=== PATIENT | male | born 1970 | race Caucasian/White ===

== ENCOUNTER 2016-05-02 21:32 | Emergency (ER) | payer MEDICARE, MEDICAID ==
[~2016-05-02 21:32] MED LIST: ALBUAER3 INH; AZIT250T3 PO; DIAZ5TAB PO; DIVA500T3 PO; FENO160T PO; FLUO60TA PO; GABA800T PO; PRED20 PO; TAMS0.4C4 PO; TRAZ100T4 PO
[2016-05-02 21:35] VITALS: BP 143/87; PULSE 78; RESP 14; TEMP 98.3; O2SAT 98
[2016-05-02 23:04] VITALS: BP 113/78; PULSE 59; RESP 18; TEMP 97.8; O2SAT 99
--- NOTE | 2016-05-03 01:07 | RADRPT ---
EXAM DATE/TIME: 05/03/2016 00:52 [facility] COMPARISON: No previous studies available for comparison. INDICATIONS : Fall today, right side facial swelling. RADIATION DOSE: 43.04 CTDIvol (mGy) MEDICAL HISTORY : Hypertension. TIA SURGICAL HISTORY : None. ENCOUNTER: Initial ACUITY: 1 day PAIN SCORE: 8/10 LOCATION: Right facial TECHNIQUE: Volumetric scanning of the facial bones was performed. Using automated exposure control and adjustme nt of the mA and/or kV according to patient size, radiation dose was kept as low as reasonably achiev able to obtain optimal diagnostic quality images. FINDINGS: No fractures are seen. The examination demonstrates a high density area lateral to the left mandibula r body adjacent to the premolars and left canine with few foci of associated air lucency. This does a ppear to communicate with the left oral cavity. On axial image 52 of series 3 this area measures 2.9 x 1.2 cm in AP and transverse dimension. The tongue is deviated to the right. CONCLUSION: Left perimandibular high density ulcerated area suspected communicating with the oral cavity should b e evaluated with direct clinical inspection. No fractures are seen. Dereck Landon MD on May 03, 2016 at 1:02 Board Certified Radiologist. This report was verified electronically.
--- NOTE | 2016-05-03 01:35 | PD ---
HPI Chief Complaint: Fall Time Seen by Provider: 22:58 Travel History International Travel<30 days: No Contact w/Intl Traveler<30days: No Traveled to known affect area: No History of Present Illness HPI 45-year-old man who tripped and fell on his face walking back from a convenience store earlier today. He resides at some kind of skilled nursing or [facility]. He complains of right sided facial pain. No other complaints. History Past Medical History Narrative Medical Bipolar disorder hypertension asthma COPD Depression anxiety Hyperlipidemia Social History Alcohol Use: No Tobacco Use: No Allergies-Medications (Allergen,Severity, Reaction): Coded Allergies: Cantaloupe (Verified Allergy, Unknown, 05/02/16) Tomato (Verified Allergy, Unknown, 05/02/16) Watermelon (Verified Allergy, Unknown, 05/02/16) Reported Meds & Prescriptions Reported Meds & Active Scripts Active Proair Hfa 8.5 GM Inh (Albuterol Sulfate) 90 Mcg/Act Aer 2 Puff INH Q4-6H PRN 108 mcg/actuation Reported Tamsulosin (Tamsulosin HCl) 0.4 Mg Cap 0.4 Mg PO BID Gabapentin 800 Mg Tab 800 Mg PO BID Divalproex ER (Divalproex Sodium) 500 Mg Tab 500 Mg PO DAILY Diazepam 5 Mg Tab 5 Mg PO BID PRN Trazodone (Trazodone HCl) 100 Mg Tab 100 Mg PO HS Fluoxetine (Fluoxetine HCl) 60 Mg Tab 60 Mg PO DAILY Fenofibrate 160 Mg Tab 160 Mg PO DAILY Review of Systems ROS Limitations: Poor Historian Physical Exam Narrative GENERAL: Well-appearing 45-year-old man, no acute distress. SKIN: Warm and dry. HEAD: Atraumatic. Normocephalic. EYES: Pupils equal and round. No scleral icterus. No injection or drainage. ENT: No nasal bleeding or discharge. Mucous membranes pink and moist. No evidence of intraoral injury. There is no blood. There is no lacerations on the soft mucosa, in the vestibule, or affecting the time her palate. NECK: Moves neck freely. No tenderness. CARDIOVASCULAR: Regular rate and rhythm. No murmur appreciated. RESPIRATORY: No accessory muscle use. Clear to auscultation. Breath sounds equal bilaterally. GASTROINTESTINAL: Abdomen soft, non-tender, nondistended. Hepatic and splenic margins not palpable. MUSCULOSKELETAL: No obvious deformities. No edema. NEUROLOGICAL: Awake to decreased alertness, sleepy. No obvious cranial nerve deficits. Motor grossly within normal limits. Normal speech. Data Data Last Documented VS Vital Signs Date Time Temp Pulse Resp B/P Pulse Ox O2 Delivery O2 Flow Rate FiO2 05/02/16 23:05 99 Room Air 05/02/16 23:04 97.8 59 18 113/[address] Facial Bones W/O Iv Cont (05/03/16 ) [facility] Medical Decision Making Medical Screen Exam Complete: Yes Emergency Medical Condition: Yes Interpretation(s) CT face: Left perimandibular high-density ulcerated area suspected indicated oral cavity should be evaluated for. No fractures. Differential Diagnosis Facial fracture, contusion, other Narrative Course medical decision making 45 old male with trip and fall right face pain. Looks fine. Unusual reading on the CT face. I'll see any evidence of injury on the left side a corresponding to the abnormal findings. Recommend supportive treatment. Diagnosis Primary Impression: Right-sided face pain Additional Instructions: Use acetaminophen or ibuprofen as needed for pain. Continue current medications. Follow-up with your primary physician if not feeling completely well in the next 3-5 days. Return to the emergency department for any new or worsening symptoms. Disposition: 01 DISCHARGE HOME Condition: Stable Nik Montesinos MD May 03, 2016 01:34
[2016-05-03 06:00] VITALS: BP 121/74; PULSE 64; RESP 18; O2SAT 100
[2016-05-03 09:27] VITALS: BP 142/66; TEMP 98.3
== END 2016-05-03 09:27 | disposition home or self-care (01) ==
LOC: NEPC 21:32 → NEPA 05-03 09:27
DX: R51 Headache (principal); I10 Essential (primary) hypertension; E78.5 Hyperlipidemia, unspecified; J44.9 Chronic obstructive pulmonary disease, unspecified; W01.198A Fall on same level from slipping, tripping and stumbling with subsequent striking against other object, initial encounter; Y93.01 Activity, walking, marching and hiking; Y92.480 Sidewalk as the place of occurrence of the external cause
CPT/HCPCS: 70486

== ENCOUNTER 2016-05-26 20:29 | Emergency (ER) | payer MEDICARE, MEDICAID ==
[~2016-05-26] VITALS: Ht 167.6 cm; Wt 100.0 kg
[~2016-05-26 20:29] MED LIST changes: -AZIT250T3 PO; -PRED20 PO
[2016-05-26 20:31] VITALS: BP 130/77; PULSE 83; RESP 16; TEMP 98.5; O2SAT 96
[2016-05-26 20:55] VITALS: BP 123/70; PULSE 75; RESP 18; O2SAT 95
[2016-05-26] MEDS ORDERED: HYDR-3516 PO (21:05)
--- NOTE | 2016-05-26 21:12 | PD ---
HPI Chief Complaint: Medical Clearance Time Seen by Provider: 21:05 Travel History International Travel<30 days: No Contact w/Intl Traveler<30days: No Traveled to known affect area: No History of Present Illness HPI Patient is a 45-year-old male who presents emergency department for evaluation of depression. RN called [facility], they state the patient has been more depressed and not acting like himself lately. They state the patient requested to come to emergency department for evaluation. Patient is currently followed by [facility] on a weekly basis for depression. When asked, patient did not state that he was depressed, he stated that the immigration case manager at his [facility] facility wanted him to come in to be vaccinated. Patient has no physical complaints at this time. He denies any suicidal ideations. PFSH Past Medical History Asthma: Yes Blood Disorders: No Bipolar Disorder: Yes Anxiety: Yes Cancer: No High Cholesterol: Yes Chest Pain: Yes COPD: Yes Cerebrovascular Accident: Yes (TIA) Developmental Delay: Yes Endocrine: No Gastrointestinal Disorders: No Genitourinary: Yes (retention) Headaches: Yes Hypertension: Yes Immune Disorder: No Implanted Vascular Access Dvce: Yes Reproductive: No Migraines: Yes Seizures: No Tetanus Vaccination: Unknown Influenza Vaccination: No Past Surgical History Body Medical Devices: BACK RODS AND SCREWS Other Surgery: Yes Family History Family History: Negative Social History Alcohol Use: No Tobacco Use: No Substance Use: No Allergies-Medications (Allergen,Severity, Reaction): Coded Allergies: Cantaloupe (Verified Allergy, Unknown, 05/26/16) Tomato (Verified Allergy, Unknown, 05/26/16) Watermelon (Verified Allergy, Unknown, 05/26/16) Reported Meds & Prescriptions Reported Meds & Active Scripts Active Proair Hfa 8.5 GM Inh (Albuterol Sulfate) 90 Mcg/Act Aer 2 Puff INH Q4-6H PRN 108 mcg/actuation Reported Hydrocodone-Acetaminophen 5-325 mg Tab 1 Tab PO Q4H PRN Tamsulosin (Tamsulosin HCl) 0.4 Mg Cap 0.4 Mg PO BID Gabapentin 800 Mg Tab 800 Mg PO BID Divalproex ER (Divalproex Sodium) 500 Mg Tab 500 Mg PO DAILY Diazepam 5 Mg Tab 5 Mg PO BID PRN Trazodone (Trazodone HCl) 100 Mg Tab 100 Mg PO HS Fluoxetine (Fluoxetine HCl) 60 Mg Tab 60 Mg PO DAILY Fenofibrate 160 Mg Tab 160 Mg PO DAILY Review of Systems Except as stated in HPI: all other systems reviewed are Neg Physical Exam Exam Limitations: Poor Historian Narrative GENERAL: Overweight, well-developed, alert male. Resting comfortably in no acute distress. SKIN: Warm and dry. Maculopapular lesions to bilateral forearms, abdomen. Hyperpigmented, scaling. HEAD: Atraumatic. Normocephalic. EYES: Pupils equal and round. No scleral icterus. No injection or drainage. ENT: No nasal bleeding or discharge. Mucous membranes pink and moist. NECK: Trachea midline. No JVD. CARDIOVASCULAR: Regular rate and rhythm. No murmur appreciated. RESPIRATORY: No accessory muscle use. Clear to auscultation. Breath sounds equal bilaterally. GASTROINTESTINAL: Abdomen obese, soft, non-tender, nondistended. Hepatic and splenic margins not palpable. MUSCULOSKELETAL: No obvious deformities. No clubbing. No cyanosis. No edema. NEUROLOGICAL: Awake and alert. No obvious cranial nerve deficits. Motor grossly within normal limits. Normal speech. PSYCHIATRIC: Appropriate mood and affect; insight and judgment impaired. Data Data Last Documented VS Vital Signs Date Time Temp Pulse Resp B/P Pulse Ox O2 Delivery O2 Flow Rate FiO2 05/26/16 20:55 75 18 123/70 95 Room Air 05/26/16 20:31 98.5 Orders Complete Blood Count With Diff (05/26/16 21:02) Comprehensive Metabolic Panel (05/26/16 21:02) Thyroid Stimulating Hormone (05/26/16 21:02) Urinalysis - C+S If Indicated (05/26/16 21:02) Iv Access Insert/Monitor (05/26/16 21:02) Ecg Monitoring (05/26/16 21:02) Valproic Acid (Depakene) (05/26/16 21:02) Psych Screen (05/26/16 21:02) Sodium Chloride 0.9% Flush (Ns Flush) (05/26/16 21:15) Drug Screen, Random Urine (05/26/16 21:02) Alcohol (Ethanol) (05/26/16 21:02) Salicylates (Aspirin) (05/26/16 21:02) Tylenol (Acetaminophen) (05/26/16 21:02) Labs Laboratory Tests Test 05/26/16 21:10 White Blood Count 5.8 TH/MM3 Red Blood Count 3.94 MIL/MM3 Hemoglobin 12.1 GM/DL Hematocrit 35.5 % Mean Corpuscular Volume 90.2 FL Mean Corpuscular Hemoglobin 30.7 PG Mean Corpuscular Hemoglobin 34.0 % Concent Red Cell Distribution Width 13.1 % Platelet Count 193 TH/MM3 Mean Platelet Volume 9.1 FL Neutrophils (%) (Auto) 55.4 % Lymphocytes (%) (Auto) 25.9 % Monocytes (%) (Auto) 12.5 % Eosinophils (%) (Auto) 5.6 % Basophils (%) (Auto) 0.6 % Neutrophils # (Auto) 3.2 TH/MM3 Lymphocytes # (Auto) 1.5 TH/MM3 Monocytes # (Auto) 0.7 TH/MM3 Eosinophils # (Auto) 0.3 TH/MM3 Basophils # (Auto) 0.0 TH/MM3 CBC Comment DIFF FINAL Differential Comment Urine Color YELLOW Urine Turbidity CLEAR Urine pH 7.0 Urine Specific [place] 1.008 Urine Protein NEG mg/dL Urine Glucose (UA) NEG mg/dL Urine Ketones NEG mg/dL Urine Occult Blood NEG Urine Nitrite NEG Urine Bilirubin NEG Urine Urobilinogen LESS THAN 2.0 MG/DL Urine Leukocyte Esterase NEG Urine RBC LESS THAN 1 /hpf Urine WBC 1 /hpf Microscopic Urinalysis Comment CULT NOT INDICATED Sodium Level 141 MEQ/L Potassium Level 4.0 MEQ/L Chloride Level 105 MEQ/L Carbon Dioxide Level 30.7 MEQ/L Anion Gap 5 MEQ/L Blood Urea Nitrogen 11 MG/DL Creatinine 0.88 MG/DL Estimat Glomerular Filtration 94 ML/MIN Rate Random Glucose 83 MG/DL Calcium Level 8.6 MG/DL Total Bilirubin 0.3 MG/DL Aspartate Amino Transf 22 U/L (AST/SGOT) Alanine Aminotransferase 32 U/L (ALT/SGPT) Alkaline Phosphatase 28 U/L Total Protein 6.6 GM/DL Albumin 3.2 GM/DL Thyroid Stimulating Hormone 4.210 uIU/ML 3rd Gen Salicylates Level LESS THAN 1.7 MG/DL Urine Opiates Screen NEG Acetaminophen Level LESS THAN 2.0 MCG/ML Urine Barbiturates Screen NEG Valproic Acid (Depakene) Level 32 MCG/ML Urine Amphetamines Screen NEG Urine Benzodiazepines Screen POS Urine Cocaine Screen NEG Urine Cannabinoids Screen NEG Ethyl Alcohol Level LESS THAN 3 MG/DL MDM Medical Decision Making Medical Screen Exam Complete: Yes Emergency Medical Condition: Yes Interpretation(s) Vital Signs Date Time Temp Pulse Resp B/P Pulse Ox O2 Delivery O2 Flow Rate FiO2 05/26/16 20:55 75 18 123/70 95 Room Air 05/26/16 20:31 98.5 83 16 130/77 96 Differential Diagnosis Mood disorder versus substance abuse versus intoxication versus bipolar disorder versus other Narrative Course Patient is a 45-year-old male who presents emergency department for evaluation of depression per immigration case manager at his [facility] report. Patient stated he was here to have his vaccines updated. Patient has no physical complaints at this time. Labs ordered and pending, psych screening pending medical clearance. CBC, chemistry reviewed and are unremarkable. TSH is 4.21 Tox screen was positive for benzodiazepines, valproic acid 32, acetaminophen negative, salicylate level is less than 1.7, alcohol level is negative. Urinalysis is not indicative of a urinary tract infection. Patient is medically clear for psychiatric evaluation at this time. Patient is resting in bed, he is pleasant, calm, cooperative. Diagnosis Primary Impression: Medical clearance for psychiatric admission Condition: Stable Monika Mendoza May 26, 2016 21:12
[2016-05-26] MEDS ORDERED: SODIUM CHLORIDE 0.9% FLUSH 5 ML FLUSH IVF PRN (21:15)
[2016-05-26 21:37] LABS: AUTOMATED NEUTROPHIL # 3.2 TH/MM3 (1.8-7.7); BASOPHIL % 0.6 % (0.0-2.0); EOSINOPHIL # 0.3 TH/MM3 (0-0.4); EOSINOPHIL % 5.6 % (0.0-4.0); HEMATOCRIT 35.5 % (39.0-51.0); HEMO FLAGS DIFF FINAL; LYMPH % 25.9 % (9.0-44.0); LYMPHOCYTE # 1.5 TH/MM3 (1.0-4.8); MEAN CELL VOLUME 90.2 FL (80.0-100.0); MEAN CORPUSCULAR HEMOGLOBIN 30.7 PG (27.0-34.0); MONO % 12.5 % (0.0-8.0); NEUT % 55.4 % (16.0-70.0); PLATELET COUNT 193 TH/MM3 (150-450); RED BLOOD COUNT 3.94 MIL/MM3 (4.50-5.90); RED CELL DISTRIBUTION WIDTH 13.1 % (11.6-17.2); WHITE BLOOD COUNT 5.8 TH/MM3 (4.0-11.0)
[2016-05-26 22:08] LABS: ACETAMINOPHEN LESS THAN 2.0 MCG/ML (10.0-30.0); ALT (GPT) 32 U/L (12-78); ANION GAP 5 MEQ/L (5-15); AST (GOT) 22 U/L (15-37); BICARBONATE 30.7 MEQ/L (21.0-32.0); BLOOD UREA NITROGEN 11 MG/DL (7-18); CHLORIDE 105 MEQ/L (98-107); GLOMERULAR FILTRATION RATE 94 ML/MIN (>89); SODIUM (NA) 141 MEQ/L (136-145)
[2016-05-26 22:16] LABS: ALKALINE PHOSPHATASE 28 U/L (45-117); TOTAL BILIRUBIN ADULT 0.3 MG/DL (0.2-1.0)
[2016-05-26 22:36] LABS: BLOOD, URINE NEG (NEG); COMMENT (UR) CULT NOT INDICATED; CULTURE IF INDICATED CULT NOT INDICATED; GLUCOSE,URINE NEG (NEG); KETONE, URINE NEG (NEG); NITRITE,URINE NEG (NEG); URINE COLOR YELLOW (YELLW/STRAW)
[2016-05-26 22:42] LABS: AMPHETAMINE, URINE NEG (NEG); BARBITURATES, URINE NEG (NEG); COCAINE, URINE NEG (NEG)
[2016-05-27 06:26] VITALS: BP 125/68; PULSE 84; RESP 16; O2SAT 98
== END 2016-05-27 09:11 | disposition home or self-care (01) ==
LOC: NEPE 20:29 → NEPA 05-27 09:11
DX: F39 Unspecified mood [affective] disorder (principal); J45.909 Unspecified asthma, uncomplicated; E78.00 Pure hypercholesterolemia, unspecified; J44.9 Chronic obstructive pulmonary disease, unspecified; Z86.73 Personal history of transient ischemic attack (TIA), and cerebral infarction without residual deficits; I10 Essential (primary) hypertension
CPT/HCPCS: 80053; 80164; 80307; 80320; 80329; 81001; 84443; 85025; 99284; G0480

== ENCOUNTER 2016-06-20 20:06 | Emergency (ER) | payer MEDICARE, MEDICAID ==
[~2016-06-20] VITALS: Ht 167.6 cm; Wt 97.0 kg
[~2016-06-20 20:06] MED LIST changes: +HYDR-3516 PO
[2016-06-20 20:09] VITALS: BP 118/74; PULSE 78; RESP 14; TEMP 97.8; O2SAT 97
--- NOTE | 2016-06-20 20:19 | PD ---
HPI Chief Complaint: GI Complaint Time Seen by Provider: 20:19 Travel History International Travel<30 days: No Contact w/Intl Traveler<30days: No Traveled to known affect area: No History of Present Illness HPI 45-year-old male came to the emergency room with history of constipation for 3 days and right lower quadrant pain. Patient seems to have some degree of mental retardation. However he did mention that he has lost weight and appetite. Sounds like he lost about 30 pounds but I'm unsure this is over what period of time. His vital signs were stable in the ER. [facility] Past Medical History Narrative Medical List of his past medical, surgical, social and family history as reviewed from the nursing note. Asthma: Yes Blood Disorders: No Bipolar Disorder: Yes Anxiety: Yes Cancer: No Cardiovascular Problems: Yes (HTN) High Cholesterol: Yes Chest Pain: Yes COPD: Yes Cerebrovascular Accident: Yes (TIA) Developmental Delay: Yes Endocrine: No Gastrointestinal Disorders: No Genitourinary: Yes (retention) Headaches: Yes Hypertension: Yes Immune Disorder: No Implanted Vascular Access Dvce: Yes Reproductive: No Respiratory: Yes (ASTHMA) Migraines: Yes Seizures: No Past Surgical History Body Medical Devices: BACK RODS AND SCREWS Other Surgery: Yes Social History Alcohol Use: No Tobacco Use: No Substance Use: No (DENIED) Allergies-Medications (Allergen,Severity, Reaction): Coded Allergies: Cantaloupe (Verified Allergy, Unknown, 06/20/16) Tomato (Verified Allergy, Unknown, 06/20/16) Watermelon (Verified Allergy, Unknown, 06/20/16) Comments List of his allergies reviewed from the nursing note. Reported Meds & Prescriptions Reported Meds & Active Scripts Active Miralax Powder (Polyethylene Glycol 3350 Powder) 17 Gm Powd 17 Gm PO DAILY Mix and dissolve one measuring cap-ful (17 grams) in water or juice. Proair Hfa 8.5 GM Inh (Albuterol Sulfate) 90 Mcg/Act Aer 2 Puff INH Q4-6H PRN 108 mcg/actuation Reported Hydrocodone-Acetaminophen 5-325 mg Tab 1 Tab PO Q4H PRN Tamsulosin (Tamsulosin HCl) 0.4 Mg Cap 0.4 Mg PO BID Gabapentin 800 Mg Tab 800 Mg PO BID Divalproex ER (Divalproex Sodium) 500 Mg Tab 500 Mg PO DAILY Diazepam 5 Mg Tab 5 Mg PO BID PRN Trazodone (Trazodone HCl) 100 Mg Tab 100 Mg PO HS Fluoxetine (Fluoxetine HCl) 60 Mg Tab 60 Mg PO DAILY Fenofibrate 160 Mg Tab 160 Mg PO DAILY Narrative Medication List of his home medications reviewed from the nursing note. Review of Systems Except as stated in HPI: all other systems reviewed are Neg Physical Exam Narrative GENERAL: Awake, alert, anxious, moderate distress SKIN: Warm and dry. Acne/folliculitis on the anterior abdominal wall HEAD: Atraumatic. Normocephalic. EYES: Pupils equal and round. No scleral icterus. No injection or drainage. ENT: No nasal bleeding or discharge. Mucous membranes pink and moist. NECK: Trachea midline. No JVD. CARDIOVASCULAR: Regular rate and rhythm. No murmur appreciated. RESPIRATORY: No accessory muscle use. Clear to auscultation. Breath sounds equal bilaterally. GASTROINTESTINAL: Abdomen soft, mild right lower quadrant tenderness over the palpation, nondistended. Hepatic and splenic margins not palpable. No hard stool in the rectal vault MUSCULOSKELETAL: No obvious deformities. No clubbing. No cyanosis. No edema. NEUROLOGICAL: Awake and alert. No obvious cranial nerve deficits. Motor grossly within normal limits. Normal speech. PSYCHIATRIC: Appropriate mood and affect; insight and judgment normal. Data Data Last Documented VS Vital Signs Date Time Temp Pulse Resp B/P Pulse Ox O2 Delivery O2 Flow Rate FiO2 06/20/16 20:09 97.8 78 14 118/74 97 Room Air Orders Complete Blood Count With Diff (06/20/16 20:23) Comprehensive Metabolic Panel (06/20/16 20:23) Lipase (06/20/16 20:23) Urinalysis - C+S If Indicated (06/20/16 20:23) Ct Abd/Pel W/O Iv Contrast (06/20/16 20:23) Iv Access Insert/Monitor (06/20/16 20:23) Ecg Monitoring (06/20/16 20:23) Oximetry (06/20/16 20:23) Sodium Chlor 0.9% 1000 Ml Inj (Ns 1000 M (06/20/16 20:23) Sodium Chloride 0.9% Flush (Ns Flush) (06/20/16 20:30) Valproic Acid (Depakene) (06/20/16 20:23) Labs Laboratory Tests Test 06/20/16 06/20/16 20:35 22:20 White Blood Count 5.3 TH/MM3 Red Blood Count 4.12 MIL/MM3 Hemoglobin 12.3 GM/DL Hematocrit 37.7 % Mean Corpuscular Volume 91.6 FL Mean Corpuscular Hemoglobin 29.8 PG Mean Corpuscular Hemoglobin 32.5 % Concent Red Cell Distribution Width 13.1 % Platelet Count 164 TH/MM3 Mean Platelet Volume 10.1 FL Neutrophils (%) (Auto) 55.9 % Lymphocytes (%) (Auto) 30.8 % Monocytes (%) (Auto) 11.1 % Eosinophils (%) (Auto) 1.8 % Basophils (%) (Auto) 0.4 % Neutrophils # (Auto) 2.9 TH/MM3 Lymphocytes # (Auto) 1.6 TH/MM3 Monocytes # (Auto) 0.6 TH/MM3 Eosinophils # (Auto) 0.1 TH/MM3 Basophils # (Auto) 0.0 TH/MM3 CBC Comment AUTO DIFF Differential Total Cells 100 Counted Neutrophils % (Manual) 62 % Band Neutrophils % 2 % Lymphocytes % 30 % Monocytes % 5 % Eosinophils % 1 % Neutrophils # (Manual) 3.4 TH/MM3 Differential Comment FINAL DIFF MANUAL Platelet Estimate NORMAL Platelet Morphology Comment NORMAL Sodium Level 140 MEQ/L Potassium Level 4.0 MEQ/L Chloride Level 104 MEQ/L Carbon Dioxide Level 29.7 MEQ/L Anion Gap 6 MEQ/L Blood Urea Nitrogen 14 MG/DL Creatinine 0.96 MG/DL Estimat Glomerular Filtration 85 ML/MIN Rate Random Glucose 95 MG/DL Calcium Level 8.5 MG/DL Total Bilirubin 0.3 MG/DL Aspartate Amino Transf 20 U/L (AST/SGOT) Alanine Aminotransferase 29 U/L (ALT/SGPT) Alkaline Phosphatase 33 U/L Total Protein 6.8 GM/DL Albumin 3.5 GM/DL Lipase 122 U/L Valproic Acid (Depakene) Level 78 MCG/ML Urine Color LIGHT-YELLOW Urine Turbidity CLEAR Urine pH 7.5 Urine Specific [place] 1.008 Urine Protein NEG mg/dL Urine Glucose (UA) NEG mg/dL Urine Ketones NEG mg/dL Urine Occult Blood NEG Urine Nitrite NEG Urine Bilirubin NEG Urine Urobilinogen LESS THAN 2.0 MG/DL Urine Leukocyte Esterase NEG Urine RBC LESS THAN 1 /hpf Urine WBC 2 /hpf Urine Mucus FEW /lpf Microscopic Urinalysis Comment CULT NOT INDICATED MDM Medical Decision Making Medical Screen Exam Complete: Yes Emergency Medical Condition: Yes Medical Record Reviewed: Yes Differential Diagnosis Obstipation, acute appendicitis, acute diverticulitis, abdominal pain NOS Narrative Course 9:26 PM CAT scan was within normal limits. Chemistry and liver function is within normal limits as well. Awaiting for the CBC. If that is normal patient will be discharged home with a prescription for laxative. Also waiting for UA. Procedures EKG Prior to Arrival: No Diagnosis Primary Impression: Constipation Qualified Code: K59.00 - Constipation, unspecified constipation type Additional Impression: Abdominal pain, unspecified site Referrals: Primary Care Physician 2 days Additional Instructions: Please follow-up with your primary care in couple days. Take medication as per the prescription direction. Med/Other Pt SpecificInfo: Prescription(s) given Scripts Polyethylene Glycol 3350 Powder (Miralax Powder)17 Gm Powd17 Gm PO DAILY #1 BOTTLE Ref 0 Mix and dissolve one measuring cap-ful (17 grams) in water or juice. Prov:Bandar Easley MD 06/20/16 Disposition: 01 DISCHARGE HOME Condition: Stable Bandar Easley MD Jun 20, 2016 20:19
[2016-06-20] MEDS ORDERED: SODIUM CHLOR 0.9% 1000 ML INJ 1,000 ML IV SCH (20:23)
[2016-06-20] MEDS ORDERED: SODIUM CHLORIDE 0.9% FLUSH 5 ML FLUSH IVF PRN (20:30)
--- NOTE | 2016-06-20 20:54 | RADRPT ---
EXAM DATE/TIME: 06/20/2016 20:36 [facility] COMPARISON: No previous studies available for comparison. INDICATIONS : Abdominal pain with constipation. ORAL CONTRAST: No oral contrast ingested. RADIATION DOSE: 14.00 CTDIvol (mGy) MEDICAL HISTORY : Hypertension. SURGICAL HISTORY : Fusion, lumbar. ENCOUNTER: Initial ACUITY: 2 days PAIN SCALE: 4/10 LOCATION: abdomen TECHNIQUE: Volumetric scanning of the abdomen and pelvis was performed. Using automated exposure control and ad justment of the mA and/or kV according to patient size, radiation dose was kept as low as reasonably achievable to obtain optimal diagnostic quality images. FINDINGS: LOWER LUNGS: The visualized lower lungs are clear. LIVER: Homogeneous density without lesion. There is no dilation of the biliary tree. Contracted gallbladder . No stones demonstrated. SPLEEN: Normal size without lesion. PANCREAS: Within normal limits. KIDNEYS: Normal in size and shape. There is no mass, stone, or hydronephrosis. ADRENAL GLANDS: Within normal limits. VASCULAR: There is no aortic aneurysm. BOWEL/MESENTERY: The stomach, small bowel, and colon demonstrate no acute abnormality. There is no free intraperitone al air or fluid. The appendix is well-visualized, normal. ABDOMINAL WALL: Within normal limits. RETROPERITONEUM: There is no lymphadenopathy. BLADDER: No wall thickening or mass. REPRODUCTIVE: Within normal limits. INGUINAL: There is no lymphadenopathy or hernia. MUSCULOSKELETAL: No acute bony abnormality demonstrated. Previous fusion procedure with posterior instrumentation at L 4/L5 and L5/S1. CONCLUSION: Negative noncontrast CT of the abdomen and pelvis. Valdez Fonseca MD on June 20, 2016 at 20:50 Board Certified Radiologist. This report was verified electronically.
[2016-06-20 21:12] LABS: ANION GAP 6 MEQ/L (5-15); AST (GOT) 20 U/L (15-37); BICARBONATE 29.7 MEQ/L (21.0-32.0); BLOOD UREA NITROGEN 14 MG/DL (7-18); CHLORIDE 104 MEQ/L (98-107); GLOMERULAR FILTRATION RATE 85 ML/MIN (>89); SODIUM (NA) 140 MEQ/L (136-145)
[2016-06-20 21:16] LABS: ALKALINE PHOSPHATASE 33 U/L (45-117); ALT (GPT) 29 U/L (12-78); TOTAL BILIRUBIN ADULT 0.3 MG/DL (0.2-1.0)
[2016-06-20 22:04] LABS: AUTOMATED NEUTROPHIL # 2.9 TH/MM3 (1.8-7.7); BASOPHIL % 0.4 % (0.0-2.0); EOSINOPHIL # 0.1 TH/MM3 (0-0.4); EOSINOPHIL % 1.8 % (0.0-4.0); HEMATOCRIT 37.7 % (39.0-51.0); LYMPH % 30.8 % (9.0-44.0); LYMPHOCYTE # 1.6 TH/MM3 (1.0-4.8); MEAN CELL VOLUME 91.6 FL (80.0-100.0); MEAN CORPUSCULAR HEMOGLOBIN 29.8 PG (27.0-34.0); MEAN CORPUSCULAR HGB CONC 32.5 % (32.0-36.0); MONO % 11.1 % (0.0-8.0); NEUT % 55.9 % (16.0-70.0); PLATELET COUNT 164 TH/MM3 (150-450); RED BLOOD COUNT 4.12 MIL/MM3 (4.50-5.90); RED CELL DISTRIBUTION WIDTH 13.1 % (11.6-17.2); WHITE BLOOD COUNT 5.3 TH/MM3 (4.0-11.0)
[2016-06-20 22:06] LABS: HEMO FLAGS AUTO DIFF
[2016-06-20 22:12] LABS: BANDS 2 % (0-6); EOSINOPHILS 1 % (0-4); NEUTROPHIL # MANUAL DIFF 3.4 TH/MM3 (1.8-7.7); POLYS (SEG NEUTROPHILS) 62 % (16-70); WBC DIFF SAMPLE 100
[2016-06-20 22:13] LABS: PLATELET ESTIMATE SMEAR NORMAL (NORMAL); PLATELET MORPHOLOGY NORMAL (NORMAL); SCAN/DIFF FINAL DIFF MANUAL
[2016-06-20 22:35] LABS: BLOOD, URINE NEG (NEG); COMMENT (UR) CULT NOT INDICATED; CULTURE IF INDICATED CULT NOT INDICATED; GLUCOSE,URINE NEG (NEG); KETONE, URINE NEG (NEG); MUCUS URINE FEW /lpf (OCC); NITRITE,URINE NEG (NEG); PH, URINE 7.5 (5.0-8.5); URINE COLOR LIGHT-YELLOW (YELLW/STRAW)
[2016-06-20] MEDS ORDERED: MIRA33504 PO (22:41)
== END 2016-06-20 23:50 | disposition home or self-care (01) ==
LOC: NEPE 20:06
DX: K59.00 Constipation, unspecified (principal); R10.31 Right lower quadrant pain; I10 Essential (primary) hypertension; E78.00 Pure hypercholesterolemia, unspecified; J44.9 Chronic obstructive pulmonary disease, unspecified; Z86.73 Personal history of transient ischemic attack (TIA), and cerebral infarction without residual deficits
CPT/HCPCS: 74176; 80053; 80164; 81001; 83690; 85007; 85027; 96360; 99284; J7030

== ENCOUNTER 2016-06-27 19:35 | Inpatient (IN) | payer MEDICARE, MEDICAID, OTHER ==
[~2016-06-27] VITALS: Ht 167.6 cm; Wt 93.7 kg
[~2016-06-27 19:35] MED LIST changes: +MIRA33504 PO
[2016-06-27 19:38] VITALS: BP 131/67; PULSE 89; RESP 16; TEMP 98.1; O2SAT 96
--- NOTE | 2016-06-27 23:02 | PD ---
HPI Chief Complaint: Psychiatric Symptoms Time Seen by Provider: 22:59 Travel History International Travel<30 days: No Contact w/Intl Traveler<30days: No Traveled to known affect area: No History of Present Illness HPI 45-year-old white male presents to emergency department on a voluntary basis for psychological evaluation. He states that he is having issues with his roommate. He states that he is tired of his roommate questioning him and telling him what to do. He states that he feels that he wants to choke his roommate to . He also then states that he wants to cut his wrists and cut his neck. The patient states that he's been compliant with his medications. States any feels like committing suicide after killing his roommate. Patient denies any toxic ingestions. He denies any drugs, alcohol or tobacco. Patient lives in a [facility]. [facility] Past Medical History Asthma: Yes Blood Disorders: No Bipolar Disorder: Yes Anxiety: Yes Cancer: No Cardiovascular Problems: Yes (HTN) High Cholesterol: Yes Chest Pain: Yes COPD: Yes Cerebrovascular Accident: Yes (TIA) Developmental Delay: Yes Endocrine: No Gastrointestinal Disorders: No Genitourinary: Yes (retention) Headaches: Yes Hypertension: Yes Immune Disorder: No Implanted Vascular Access Dvce: Yes Reproductive: No Respiratory: Yes (ASTHMA) Migraines: Yes Seizures: No Tetanus Vaccination: < 5 Years Past Surgical History Body Medical Devices: BACK RODS AND SCREWS Other Surgery: Yes Social History Alcohol Use: No Tobacco Use: No Substance Use: No Allergies-Medications (Allergen,Severity, Reaction): Coded Allergies: Cantaloupe (Verified Allergy, Unknown, 06/27/16) Tomato (Verified Allergy, Unknown, 06/27/16) Watermelon (Verified Allergy, Unknown, 06/27/16) Reported Meds & Prescriptions Reported Meds & Active Scripts Active Proair Hfa 8.5 GM Inh (Albuterol Sulfate) 90 Mcg/Act Aer 2 Puff INH Q4-6H PRN 108 mcg/actuation Reported Hydrocodone-Acetaminophen 5-325 mg Tab 1 Tab PO Q4H PRN Tamsulosin (Tamsulosin HCl) 0.4 Mg Cap 0.4 Mg PO BID Gabapentin 800 Mg Tab 800 Mg PO BID Divalproex ER (Divalproex Sodium) 500 Mg Tab 500 Mg PO DAILY Diazepam 5 Mg Tab 5 Mg PO BID PRN Trazodone (Trazodone HCl) 100 Mg Tab 100 Mg PO HS Fluoxetine (Fluoxetine HCl) 60 Mg Tab 60 Mg PO DAILY Fenofibrate 160 Mg Tab 160 Mg PO DAILY Review of Systems Except as stated in HPI: all other systems reviewed are Neg General / Constitutional: No: Fever, Chills Eyes: No: Diploplia, Blurred Vision HENT: No: Headaches, Sore Throat Cardiovascular: No: Chest Pain or Discomfort, Palpitations Respiratory: No: Cough, Wheezing Gastrointestinal: No: Nausea, Vomiting Genitourinary: No: Dysuria, Hematuria Musculoskeletal: Positive: Limited ROM (left knee), Pain Skin: No Rash, No Itching Neurologic: No: Weakness, Syncope Psychiatric: Positive: Depression, Suicidal Ideations, Homicidal Ideation, No : Anxiety, Disorder of Thought, Mood Disorder, Substance Abuse Physical Exam Narrative GENERAL: Well-nourished, well-developed patient. SKIN: Warm and dry. HEAD: Normocephalic and atraumatic. EYES: No scleral icterus. No injection or drainage. ENT: No nasal drainage noted. Mucous membranes pink. Airway patent. NECK: Supple, trachea midline. Moves head freely without obvious discomfort. CARDIOVASCULAR: Regular rate and rhythm without murmurs, gallops, or rubs. RESPIRATORY: Breath sounds equal bilaterally. No accessory muscle use. GASTROINTESTINAL: Abdomen soft, non-tender, nondistended. EXTREMITIES: No cyanosis or edema. Patient has a knee brace on his left knee. BACK: Nontender without obvious deformity. No CVA tenderness. NEURO: Patient is alert and oriented. no sensorimotor deficits. Nonfocal. Normal speech. PSYCH: No delusions. No auditory or visual hallucinations. Data Data Last Documented VS Vital Signs Date Time Temp Pulse Resp B/P Pulse Ox O2 Delivery O2 Flow Rate FiO2 06/27/16 19:38 98.1 89 16 131/67 96 Room Air Orders Complete Blood Count With Diff (06/27/16 22:45) Comprehensive Metabolic Panel (06/27/16 22:45) Valproic Acid (Depakene) (06/27/16 22:45) Psych Screen (06/27/16 22:45) Drug Screen, Random Urine (06/27/16 22:45) Alcohol (Ethanol) (06/27/16 22:45) Salicylates (Aspirin) (06/27/16 22:45) Tylenol (Acetaminophen) (06/27/16 22:45) Labs Laboratory Tests Test 06/27/16 23:00 White Blood Count 5.0 TH/MM3 Red Blood Count 4.28 MIL/MM3 Hemoglobin 12.9 GM/DL Hematocrit 38.3 % Mean Corpuscular Volume 89.4 FL Mean Corpuscular Hemoglobin 30.2 PG Mean Corpuscular Hemoglobin 33.8 % Concent Red Cell Distribution Width 12.8 % Platelet Count 183 TH/MM3 Mean Platelet Volume 9.7 FL Neutrophils (%) (Auto) 51.2 % Lymphocytes (%) (Auto) 34.3 % Monocytes (%) (Auto) 12.6 % Eosinophils (%) (Auto) 1.5 % Basophils (%) (Auto) 0.4 % Neutrophils # (Auto) 2.5 TH/MM3 Lymphocytes # (Auto) 1.7 TH/MM3 Monocytes # (Auto) 0.6 TH/MM3 Eosinophils # (Auto) 0.1 TH/MM3 Basophils # (Auto) 0.0 TH/MM3 CBC Comment DIFF FINAL Differential Comment Salicylates Level LESS THAN 1.7 MG/DL Sodium Level 139 MEQ/L Potassium Level 3.9 MEQ/L Chloride Level 103 MEQ/L Carbon Dioxide Level 28.5 MEQ/L Anion Gap 8 MEQ/L Blood Urea Nitrogen 14 MG/DL Creatinine 0.86 MG/DL Estimat Glomerular Filtration 97 ML/MIN Rate Random Glucose 83 MG/DL Calcium Level 8.8 MG/DL Total Bilirubin 0.4 MG/DL Aspartate Amino Transf 23 U/L (AST/SGOT) Alanine Aminotransferase 27 U/L (ALT/SGPT) Alkaline Phosphatase 24 U/L Total Protein 7.2 GM/DL Albumin 3.5 GM/DL Acetaminophen Level LESS THAN 2.0 MCG/ML Valproic Acid (Depakene) Level 66 MCG/ML Ethyl Alcohol Level 4 MG/DL [facility] Medical Decision Making Medical Screen Exam Complete: Yes Emergency Medical Condition: Yes Medical Record Reviewed: Yes Interpretation(s) Laboratory Tests Test 06/27/16 23:00 White Blood Count 5.0 TH/MM3 Red Blood Count 4.28 MIL/MM3 Hemoglobin 12.9 GM/DL Hematocrit 38.3 % Mean Corpuscular Volume 89.4 FL Mean Corpuscular Hemoglobin 30.2 PG Mean Corpuscular Hemoglobin 33.8 % Concent Red Cell Distribution Width 12.8 % Platelet Count 183 TH/MM3 Mean Platelet Volume 9.7 FL Neutrophils (%) (Auto) 51.2 % Lymphocytes (%) (Auto) 34.3 % Monocytes (%) (Auto) 12.6 % Eosinophils (%) (Auto) 1.5 % Basophils (%) (Auto) 0.4 % Neutrophils # (Auto) 2.5 TH/MM3 Lymphocytes # (Auto) 1.7 TH/MM3 Monocytes # (Auto) 0.6 TH/MM3 Eosinophils # (Auto) 0.1 TH/MM3 Basophils # (Auto) 0.0 TH/MM3 CBC Comment DIFF FINAL Differential Comment Salicylates Level LESS THAN 1.7 MG/DL Sodium Level 139 MEQ/L Potassium Level 3.9 MEQ/L Chloride Level 103 MEQ/L Carbon Dioxide Level 28.5 MEQ/L Anion Gap 8 MEQ/L Blood Urea Nitrogen 14 MG/DL Creatinine 0.86 MG/DL Estimat Glomerular Filtration 97 ML/MIN Rate Random Glucose 83 MG/DL Calcium Level 8.8 MG/DL Total Bilirubin 0.4 MG/DL Aspartate Amino Transf 23 U/L (AST/SGOT) Alanine Aminotransferase 27 U/L (ALT/SGPT) Alkaline Phosphatase 24 U/L Total Protein 7.2 GM/DL Albumin 3.5 GM/DL Acetaminophen Level LESS THAN 2.0 MCG/ML Valproic Acid (Depakene) Level 66 MCG/ML Ethyl Alcohol Level 4 MG/DL Differential Diagnosis MDM: High Differential diagnoses: Schizophrenia, schizoaffective disorder, bipolar, anxiety, depression, adjustment reaction, mood disorder NOS, ODD, depressive disorder NOS, dementia, dementia with agitation, psychosis NOS, substance induced mood disorder, intermittent explosive disorder, Asperger syndrome, infection,electrolyte abnormality, malingering. Narrative Course Mental health screening discussed with the patient. Psychiatric screen ordered. The patient is been medically cleared. This is bipolar Diagnosis Primary Impression: Bipolar 1 disorder Condition: Stable Marcus Bernabe Jun 27, 2016 23:02
[2016-06-27 23:15] LABS: AUTOMATED NEUTROPHIL # 2.5 TH/MM3 (1.8-7.7); BASOPHIL % 0.4 % (0.0-2.0); EOSINOPHIL # 0.1 TH/MM3 (0-0.4); EOSINOPHIL % 1.5 % (0.0-4.0); HEMATOCRIT 38.3 % (39.0-51.0); HEMO FLAGS DIFF FINAL; LYMPH % 34.3 % (9.0-44.0); LYMPHOCYTE # 1.7 TH/MM3 (1.0-4.8); MEAN CELL VOLUME 89.4 FL (80.0-100.0); MEAN CORPUSCULAR HEMOGLOBIN 30.2 PG (27.0-34.0); MEAN CORPUSCULAR HGB CONC 33.8 % (32.0-36.0); MONO % 12.6 % (0.0-8.0); NEUT % 51.2 % (16.0-70.0); PLATELET COUNT 183 TH/MM3 (150-450); RED BLOOD COUNT 4.28 MIL/MM3 (4.50-5.90); RED CELL DISTRIBUTION WIDTH 12.8 % (11.6-17.2)
[2016-06-27 23:58] LABS: ANION GAP 8 MEQ/L (5-15)
[2016-06-28 00:01] LABS: ACETAMINOPHEN LESS THAN 2.0 MCG/ML (10.0-30.0); ALKALINE PHOSPHATASE 24 U/L (45-117); ALT (GPT) 27 U/L (12-78); AST (GOT) 23 U/L (15-37); BICARBONATE 28.5 MEQ/L (21.0-32.0); BLOOD UREA NITROGEN 14 MG/DL (7-18); CHLORIDE 103 MEQ/L (98-107); GLOMERULAR FILTRATION RATE 97 ML/MIN (>89); POTASSIUM 3.9 MEQ/L (3.5-5.1); SODIUM (NA) 139 MEQ/L (136-145); TOTAL BILIRUBIN ADULT 0.4 MG/DL (0.2-1.0)
[2016-06-28 02:14] VITALS: BP 134/72; PULSE 74; RESP 18; O2SAT 97
[2016-06-28 02:45] LABS: AMPHETAMINE, URINE NEG (NEG); BARBITURATES, URINE NEG (NEG); COCAINE, URINE NEG (NEG)
[2016-06-28 04:01] VITALS: BP 140/64; PULSE 75; RESP 19; O2SAT 96
[2016-06-28 06:29] VITALS: BP 115/60; PULSE 82; RESP 19; O2SAT 96
[2016-06-28 13:03] VITALS: BP 103/66; PULSE 80; RESP 20; O2SAT 96
--- NOTE | 2016-06-28 16:34 | PD ---
History of Present Illness Chief Complaint: Psychiatric Symptoms Time Seen by Provider: 16:00 Travel History International Travel<30 Days: No Contact w/Intl Traveler<30days: No Known affected area: No Legal Status Legal Status: Voluntary History of Present Illness: History of Present Illness HPI 45-year-old white male with history of schizophrenia and bipolar disorder presents to emergency department on a voluntary basis for psychological evaluation. He is a resident of an [facility] and states that he is tired of his roommate questioning him and telling him what to do. He states that he feels that he wants to choke his roommate to . He also then states that he wants to cut his wrists and cut his neck. The patient states that he's been compliant with his medications. States any feels like committing suicide after killing his roommate. Lab work is reviewed and current VPA is 66 and positive benzodiazepine. He denies substance use. Patient seen. He is calm, cooperative and has presented no behavioral concerns. 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 He is able to answer questions but his speech is slow and has a slight slurred. He reports auditory command hallucinations that tell him to " beat the crap out of them". He last heard them yesterday. He denies that he has ever acted on these voices. He denies any history of violence. Telephone contact with [employer] student financial aid manager Ashley at [phone]. To obtain further clinical information. States that he has been in her [facility] x 5 months and has had 8 visits to ED for various complaints. He has had 3 different roommates and has had problems with each.She states that he is polite and helpful around the [employer] but has problems with his roommates. She is concerned because earlier this week he took the light bulb out of the room so that his roommate could not see in the dark. She has no further information regarding his past psychiatric history. PFSH Past Medical History Asthma: Yes Blood Disorders: No Bipolar Disorder: Yes Anxiety: Yes Cancer: No Cardiovascular Problems: Yes (HTN) High Cholesterol: Yes Chest Pain: Yes COPD: Yes Cerebrovascular Accident: Yes (TIA) Developmental Delay: Yes Endocrine: No Gastrointestinal Disorders: No Genitourinary: Yes (retention) Headaches: Yes Hypertension: Yes Immune Disorder: No Implanted Vascular Access Dvce: Yes Reproductive: No Respiratory: Yes (ASTHMA) Migraines: Yes Seizures: No Tetanus Vaccination: < 5 Years Past Surgical History Body Medical Devices: BACK RODS AND SCREWS Other Surgery: Yes Psychiatric History Psychiatric History Hx Psychiatric Treatment: HX OF ANXIETY, DEPRESSION AND BIPOLAR D/O History of Inpatient Treatment: Yes (he denies any) Guns or firearms in home: No Social History Single , never male. Resides in [place]. On SSI. All of his family is except for one sister and he does not have contact with her. Hx Alcohol Use: No Hx Tobacco Use: No Hx Substance Use: No (PT DENIES) Hx of Substance Use Treatment: No Family Psychiatric History unknown Allergies-Medications (Allergen,Severity, Reaction): Coded Allergies: Cantaloupe (Verified Allergy, Unknown, 06/27/16) Tomato (Verified Allergy, Unknown, 06/27/16) Watermelon (Verified Allergy, Unknown, 06/27/16) Reported Meds & Prescriptions Reported Meds & Active Scripts Active Proair Hfa 8.5 GM Inh (Albuterol Sulfate) 90 Mcg/Act Aer 2 Puff INH Q4-6H PRN 108 mcg/actuation Reported Hydrocodone-Acetaminophen 5-325 mg Tab 1 Tab PO Q4H PRN Tamsulosin (Tamsulosin HCl) 0.4 Mg Cap 0.4 Mg PO BID Gabapentin 800 Mg Tab 800 Mg PO BID Divalproex ER (Divalproex Sodium) 500 Mg Tab 500 Mg PO DAILY Diazepam 5 Mg Tab 5 Mg PO BID PRN Trazodone (Trazodone HCl) 100 Mg Tab 100 Mg PO HS Fluoxetine (Fluoxetine HCl) 60 Mg Tab 60 Mg PO DAILY Fenofibrate 160 Mg Tab 160 Mg PO DAILY Exam Alert: Yes [place]art: Person (ox4) Mood: Calm Affect: Restricted Speech: Slurred Eye Contact: Normal Memory Intact: Comment (poor historian) Hallucinations: Auditory (command type ) Delusions: No Suicidal: Ideation (deneis at present) Homicidal: Ideation (towards roommate) Insight/Judgement poor. poor MDM Medical Decision Making Medical Record Reviewed: Yes Assessment/Plan 45 year old male with hx of schizophrenia and bipolar disorder who reports command type hallucinations to kill his roommate by strangling them. He is of low intellectual functioning and we have no previous history with him. He resides at an [facility] and the home security alarm installer of the [employer] has limited clinical history as well. At this time inpatient [psychiatric admission is recommended to further evaluate, maintain safety and adjust current medication. Orders Complete Blood Count With Diff (06/27/16 22:45) Comprehensive Metabolic Panel (06/27/16 22:45) Valproic Acid (Depakene) (06/27/16 22:45) Psych Screen (06/27/16 22:45) Drug Screen, Random Urine (06/27/16 22:45) Alcohol (Ethanol) (06/27/16 22:45) Salicylates (Aspirin) (06/27/16 22:45) Tylenol (Acetaminophen) (06/27/16 22:45) Diet Regular Basic (06/28/16 Breakfast) Diet Regular Basic (06/28/16 Lunch) Results Vital Signs Date Time Temp Pulse Resp B/P Pulse Ox O2 Delivery O2 Flow Rate FiO2 06/28/16 13:03 80 20 103/66 96 06/28/16 06:29 82 19 115/60 96 Room Air 06/28/16 04:01 75 19 140/64 96 Room Air 06/28/16 02:14 74 18 134/72 97 Room Air 06/27/16 19:38 98.1 89 16 131/67 96 Room Air Laboratory Tests Test 06/27/16 06/28/16 23:00 02:20 White Blood Count 5.0 Red Blood Count 4.28 Hemoglobin 12.9 Hematocrit 38.3 Mean Corpuscular Volume 89.4 Mean Corpuscular Hemoglobin 30.2 Mean Corpuscular Hemoglobin 33.8 Concent Red Cell Distribution Width 12.8 Platelet Count 183 Mean Platelet Volume 9.7 Neutrophils (%) (Auto) 51.2 Lymphocytes (%) (Auto) 34.3 Monocytes (%) (Auto) 12.6 Eosinophils (%) (Auto) 1.5 Basophils (%) (Auto) 0.4 Neutrophils # (Auto) 2.5 Lymphocytes # (Auto) 1.7 Monocytes # (Auto) 0.6 Eosinophils # (Auto) 0.1 Basophils # (Auto) 0.0 CBC Comment DIFF FINAL Differential Comment Salicylates Level LESS THAN 1.7 Sodium Level 139 Potassium Level 3.9 Chloride Level 103 Carbon Dioxide Level 28.5 Anion Gap 8 Blood Urea Nitrogen 14 Creatinine 0.86 Estimat Glomerular Filtration 97 Rate Random Glucose 83 Calcium Level 8.8 Total Bilirubin 0.4 Aspartate Amino Transf 23 (AST/SGOT) Alanine Aminotransferase 27 (ALT/SGPT) Alkaline Phosphatase 24 Total Protein 7.2 Albumin 3.5 Acetaminophen Level LESS THAN 2.0 Valproic Acid (Depakene) Level 66 Ethyl Alcohol Level 4 Urine Opiates Screen NEG Urine Barbiturates Screen NEG Urine Amphetamines Screen NEG Urine Benzodiazepines Screen POS Urine Cocaine Screen NEG Urine Cannabinoids Screen NEG Diagnosis Primary Impression: Bipolar 1 disorder Additional Impression: Schizophrenia Admitting Information Admitting Physician Requests: Admit Condition: Stable Problem Qualifiers Additional Impression: Schizophrenia Qualified Code: F20.3 - Undifferentiated schizophrenia Jory Moore Jun 28, 2016 16:34
[2016-06-28 18:31] VITALS: BP 115/72; PULSE 88; RESP 20; TEMP 98.6; O2SAT 97
[2016-06-28] MEDS: DIVALPROEX SODIUM E.R. 500 MG TAB PO SCH (20:00)
[2016-06-28] MEDS: GABAPENTIN 400 MG CAP PO SCH (20:53)
[2016-06-28] MEDS ORDERED: ACETAMINOPHEN 325 MG TAB PO PRN (21:30)
[2016-06-28] MEDS ORDERED: MAGNESIUM HYDROXIDE SUSP 30 ML CUP PO PRN (21:30)
[2016-06-28] MEDS ORDERED: ALUMINUM/MAGNESIUM/SIMETH 30 ML CUP PO PRN (21:30)
[2016-06-28] MEDS ORDERED: diphenhydrAMINE HCL 50 MG CAP PO PRN (21:30)
[2016-06-28] MEDS: TAMSULOSIN HCL 0.4 MG CAP PO SCH (22:00)
[2016-06-28] MEDS: traZODone HCL 100 MG TAB PO SCH (22:00)
[2016-06-28 23:54] VITALS: BP 118/72; PULSE 58; RESP 18; O2SAT 96
[2016-06-29 05:27] VITALS: BP 107/60; PULSE 64; RESP 18; TEMP 98; O2SAT 95
[2016-06-29 07:44] LABS: ANION GAP 5 MEQ/L (5-15); BICARBONATE 30.4 MEQ/L (21.0-32.0); BLOOD UREA NITROGEN 12 MG/DL (7-18); CHLORIDE 107 MEQ/L (98-107); GLOMERULAR FILTRATION RATE 123 ML/MIN (>89); POTASSIUM 3.9 MEQ/L (3.5-5.1); SODIUM (NA) 142 MEQ/L (136-145)
[2016-06-29 07:48] LABS: HDL CHOLESTEROL 31.3 MG/DL (40.0-60.0); LDL CHOLESTEROL 83 MG/DL (0-99)
[2016-06-29] MEDS: DIVALPROEX SODIUM E.R. 500 MG TAB PO SCH (09:00)
[2016-06-29] MEDS: TAMSULOSIN HCL 0.4 MG CAP PO SCH ×2 (09:10→21:35)
[2016-06-29] MEDS: FLUoxetine HCL 20 MG CAP PO SCH (09:10)
[2016-06-29] MEDS: FENOFIBRATE 145 MG TAB PO SCH (09:10)
[2016-06-29] MEDS: GABAPENTIN 400 MG CAP PO SCH ×2 (09:10→21:35)
[2016-06-29 14:08] LABS: HEMOGLOBIN A1b 0.7 %; HEMOGLOBIN Ao 86.9 %; HEMOGLOBIN F 0.6 %; HEMOGLOBIN LA1C 1.9 %; HEMOGLOBIN P3 3.5 %
[2016-06-29 18:49] VITALS: BP 111/71; PULSE 69; RESP 16; TEMP 97.4; O2SAT 92
[2016-06-29] MEDS: traZODone HCL 100 MG TAB PO SCH (21:35)
[2016-06-30 06:33] VITALS: BP 121/58; PULSE 52; RESP 18; TEMP 96.5; O2SAT 94
[2016-06-30] MEDS: DIVALPROEX SODIUM E.R. 500 MG TAB PO SCH (08:44)
[2016-06-30] MEDS: TAMSULOSIN HCL 0.4 MG CAP PO SCH ×2 (08:44→20:51)
[2016-06-30] MEDS: FENOFIBRATE 145 MG TAB PO SCH (08:54)
[2016-06-30] MEDS: GABAPENTIN 400 MG CAP PO SCH ×2 (08:54→20:51)
[2016-06-30] MEDS: FLUoxetine HCL 20 MG CAP PO SCH (08:54)
--- NOTE | 2016-06-30 11:52 | HHI.PYPN ---
Subjective Remarks Patient was seen and case discussed with nursing. Patient has a history of cognitive impairment and this is evident during the interview. He says he was angry with his roommates cannot specify any specific homicidal plans. Complaining of voices yesterday telling him to hurt his roommate claims sedated through gone. Has fleeting suicidal thoughts. Behaving well on the unit Objective Alert: Yes Wallace: Person (ox4), Place Mood: Calm Affect: Blunted Memory Intact: Comment (poor historian) Hallucinations: Auditory (denies today) Delusions: No Delusion Type: Other (denies) Suicidal: Ideation (fleeting) Homicidal: Ideation (denies) Insight/Judgement Poor Vitals/IOs Vital Signs Date Time Temp Pulse Resp B/P Pulse Ox O2 Delivery O2 Flow Rate FiO2 06/30/16 06:33 96.5 52 18 121/58 94 06/28/16 06:29 Room Air Intake and Output 06/29/16 06/29/16 06/30/16 08:00 16:00 00:00 Intake Total 360 ml 600 ml 720 ml Output Total 1 ml Balance 359 ml 600 ml 720 ml Assessment & Plan Problem List: (1) Psychosis ICD Code: F29 Assessment & Plan Continue current treatment plan Justification for Cont. Inpt. Patient will decompensate in a less restrictive setting Problem Qualifiers (1) Psychosis: Qualified Code: F29 - Psychosis, unspecified psychosis type Lucian Pedroza DO Jun 30, 2016 11:52
--- NOTE | 2016-06-30 15:16 | HHI.HP ---
Provisional Diagnosis Admission Date Jun 28, 2016 at 21:24 [place] I. Schizophrenia, bipolar disorder [place] II. Intellectual disability Certification of Person's Competence To Provide Express and Informed Consent I have personally examined Gopal Hay , a person being served at [facility] on, Jun 30, 2016 15:05. Express and informed consent means consent voluntarily given in writing, by a competent person, after sufficient explanation and disclosure of the subject matter involved to enable the person to make a knowing and willful decision without any element of force, fraud, deceit, duress, or other form of constraint or coercion. This person is 18 years of age or older, is not now known to be incompetent to consent to treatment with a guardian advocate, and does not have a health care surrogate or proxy currently making medical treatment decisions. I have found this person to be one of the following: [X] Competent to provide express and informed consent, as defined above, for voluntary admission to this facility and is competent to provide express and informed consent for treatment. He/she has the consistent capacity to make well reasoned, willful, and knowing decisions concerning his or her medical or mental health treatment. The person fully and consistently understands the purpose of the admission for examination/placement and is fully capable of personally exercising all rights [place] Incompetent to provide express and informed consent to voluntary admission, and this is incompetent to provide express and informed consent to treatment. The person must be transferred to involuntary status and a petition for a guardian advocate filed with the Circuit Court. [] Refusing to provide express and informed consent to voluntary admission but is competent to provide express and informed consent for treatment. The person must be discharged or transferred to involuntary status. Form shall be completed within 24 hours of a person's arrival at the receiving facility and filed in the clinical record of each person: 1. Admitted on a voluntary basis 2. Permitted to provide express and informed consent to his/her own treatment 3. Allowed to transfer from involuntary to voluntary status 4. Prior to permitting a person to consent to his or her own treatment after having been previously found incompetent to consent to treatment. History of Present Illness Capacity: Has Capacity HPI Late entry, note from 06/01/2016 Miss Moore documentation: "45-year-old white male with history of schizophrenia and bipolar disorder presents to emergency department on a voluntary basis for psychological evaluation. He is a resident of an [facility] and states that he is tired of his roommate questioning him and telling him what to do. He states that he feels that he wants to choke his roommate to . He also then states that he wants to cut his wrists and cut his neck. The patient states that he's been compliant with his medications. States any feels like committing suicide after killing his roommate. Lab work is reviewed and current VPA is 66 and positive benzodiazepine. He denies substance use. Patient seen. He is calm, cooperative and has presented no behavioral concerns. 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 He is able to answer questions but his speech is slow and has a slight slurred. He reports auditory command hallucinations that tell him to " beat the crap out of them". He last heard them yesterday. He denies that he has ever acted on these voices. He denies any history of violence. Telephone contact with [employer] marketing information manager Ashley at [phone]. To obtain further clinical information. States that he has been in her [facility] x 5 months and has had 8 visits to ED for various complaints. He has had 3 different roommates and has had problems with each.She states that he is polite and helpful around the [facility] but has problems with his roommates. She is concerned because earlier this week he took the light bulb out of the room so that his roommate could not see in the dark. She has no further information regarding his past psychiatric history." Today : Patient seen for psychiatric evaluation in the [facility], patient is calm, cooperative, patient says that he feels much better now, he doesn't feel that he would harm anybody, "I was just mad with my roommate, but not I am fine", he denies depressive symptoms, he denies anhedonia, he denies hopelessness, he denies helplessness, he denies suicidal or homicidal ideation. Patient, he reported occasional auditory hallucinations of voices and telling him to hurt his roommate, last time he heard his voice was yesterday denies visual hallucinations. Patient is fully oriented 3, no aggressive behavior, no agitation has been observed or reported. Patient is poorly compliant with medications, no significant side effects. Patient denies the use of drugs and alcohol. Review of Systems Constitutional: DENIES: Diaphoretic episodes, Fatigue, Fever, Weight gain, Weight loss, Chills, Dizziness, Change in appetite, Night Sweats Endocrine: DENIES: Heat/cold intolerance, Polydipsia, Polyuria, Polyphagia Eyes: DENIES: Blurred vision, Diplopia, Eye inflammation, Eye pain, Vision loss , Photosensitivity, Double Vision Ears, nose, mouth, throat: DENIES: Tinnitus, Hearing loss, Vertigo, Nasal discharge, Oral lesions, Throat pain, Hoarseness, Ear Pain, Running Nose, Epistaxis, Sinus Pain, Toothache, Odynophagia Respiratory: DENIES: Apneas, Cough, Snoring, Wheezing, Hemoptysis, Sputum production, Shortness of breath Cardiovascular: DENIES: Chest pain, Palpitations, Syncope, Dyspnea on Exertion , PND, Lower Extremity Edema, Orthopnea, Claudication Musculoskeletal: DENIES: Joint pain, Muscle aches, Stiffness, Joint Swelling, Back pain, Neck pain Integumentary: DENIES: Abnormal pigmentation, Nail changes, Pruritus, Rash Hematologic/lymphatic: DENIES: Bruising, Lymphadenopathy Immunologic/allergic: DENIES: Eczema, Urticaria Neurologic: DENIES: Abnormal gait, Headache, Localized weakness, Paresthesias, Seizures, Speech Problems, Tremor, Poor Balance Psychiatric: DENIES: Anxiety, Confusion, Mood changes, Depression, Hallucinations, Agitation, Suicidal Ideation, Homicidal Ideation, Delusions Substance Abuse History Drugs/Alcohol past 12 months He denies Past Family Social History Coded Allergies: Cantaloupe (Verified Allergy, Unknown, 06/27/16) Tomato (Verified Allergy, Unknown, 06/27/16) Watermelon (Verified Allergy, Unknown, 06/27/16) Active Scripts Albuterol 8.5 GM Inh (Proair Hfa 8.5 GM Inh)90 Mcg/Act Aer2 Puff INH Q4-6H PRN ( SHORTNESS OF BREATH) #1 INHALER Ref 0 108 mcg/actuation Prov:Elana Romero MD 03/23/16 Reported Medications Hydrocodone-Acetaminophen 5-325 mg Tab1 Tab PO Q4H PRN (PAIN) Ref 0 05/26/16 Tamsulosin 0.4 Mg Cap0.4 Mg PO BID #30 CAP Ref 0 03/23/16 Gabapentin 800 Mg [id number] Mg PO BID #90 TAB Ref 0 03/23/16 Divalproex ER 500 Mg [id number] Mg PO DAILY #30 TAB Ref 0 03/23/16 Diazepam 5 Mg Tab5 Mg PO BID PRN (MILD ANXIETY) Ref 0 03/23/16 Trazodone 100 Mg [id number] Mg PO HS #30 TAB Ref 0 03/23/16 Fluoxetine 60 Mg Tab60 Mg PO DAILY #30 TAB Ref 0 03/23/16 Fenofibrate 160 Mg [id number] Mg PO DAILY #30 TAB Ref 0 03/23/16 Discontinued Scripts Polyethylene Glycol 3350 Powder (Miralax Powder)17 Gm Powd17 Gm PO DAILY #1 BOTTLE Ref 0 Mix and dissolve one measuring cap-ful (17 grams) in water or juice. Prov:Bandar Easley MD 06/20/16 Current Medications Medications (Trade) Dose Ordered Sig/Ron Route Start Time Stop Time Status Last Admin (Depakote Er) 500 mg DAILY PO 06/28/16 20:00 06/30/16 08:44 (PROzac) 60 mg DAILY PO 06/29/16 09:00 06/29/16 09:10 (Neurontin) 800 mg BID PO 06/28/16 21:00 06/29/16 21:35 (Flomax) 0.4 mg BID PO 06/28/16 22:00 06/30/16 08:44 (Desyrel) 100 mg HS PO 06/28/16 22:00 06/29/16 21:35 (Tricor) 145 mg DAILY PO 06/29/16 09:00 06/30/16 08:54 (Benadryl) 50 mg Q6H PRN PO 06/28/16 21:30 (Tylenol) 650 mg Q4H PRN PO 06/28/16 21:30 (Milk Of Magnesia Liq) 30 ml DAILY PRN PO 06/28/16 21:30 (Mag-Al Plus Susp Liq) 30 ml Q6H PRN PO 06/28/16 21:30 Physical Exam Vital Signs Vital Signs Date Time Temp Pulse Resp B/P Pulse Ox O2 Delivery O2 Flow Rate FiO2 06/30/16 06:33 96.5 52 18 121/58 94 06/28/16 06:29 Room Air I/O 06/29/16 06/29/16 06/30/16 08:00 16:00 00:00 Intake Total 360 ml 600 ml 720 ml Output Total 1 ml Balance 359 ml 600 ml 720 ml Mental Status Examination Speech: Unremarkable Orientation: x3 Memory: Impaired (describe) Thought Process: Logical, Linear, Other (concrete) Thought Content: Unremarkable Hallucination Type: Auditory Suicidal Ideation: No Previous Suicide Attempts: Yes Homicidal Ideation: No Previous Homicide Attempts: No Insight: Fair Judgement: Impulsive Affect: Good Mood: Appropriate Motor Activity: Normal gait Assessment & Plan Problem List: (1) Psychosis Assessment & Plan: On psychotic evaluation today patient seems to be calmer, denies depression, denies anxiety, denies suicidal ideation. Brillion thoughts , mild thought blocking is present most wildly congruent with underlying intellectual dysfunction. He has reporting auditory hallucination of voices telling him to harm his roommate and has displays and aggressive behavior, but now be calmer. Patient decided to sign voluntary admission to continue his psychiatric hospitalization for stabilization. Will continue current psychotropics. Social work intervention to cope a psychosocial assessment, and to start working and discharge planning. Extensive support, motivation psycho education provided. ICD Code: F29 (2) Schizophrenia ICD Code: F20.9 Assessment & Plan Estimated LOS: days Problem Qualifiers (1) Psychosis: Qualified Code: F29 - Psychosis, unspecified psychosis type (2) Schizophrenia: Qualified Code: F20.3 - Undifferentiated schizophrenia Edinson Soares MD Jun 30, 2016 15:15
[2016-06-30 19:03] VITALS: BP 110/63; PULSE 70; RESP 16; TEMP 98.7; O2SAT 97
[2016-06-30] MEDS: traZODone HCL 100 MG TAB PO SCH (20:51)
[2016-07-01 05:26] VITALS: BP 107/57; PULSE 57; RESP 18; TEMP 97.7; O2SAT 97
[2016-07-01] MEDS: FENOFIBRATE 145 MG TAB PO SCH (09:26)
[2016-07-01] MEDS: DIVALPROEX SODIUM E.R. 500 MG TAB PO SCH (09:26)
[2016-07-01] MEDS: TAMSULOSIN HCL 0.4 MG CAP PO SCH ×2 (09:26→21:34)
[2016-07-01] MEDS: GABAPENTIN 400 MG CAP PO SCH ×2 (09:27→21:34)
[2016-07-01] MEDS: FLUoxetine HCL 20 MG CAP PO SCH (09:27)
--- NOTE | 2016-07-01 13:43 | HHI.PYPN ---
Subjective Remarks I am assuming care of this patient. Patient seen and examined. Chart reviewed. Case discussed with nursing staff. No evidence of behavioral disturbance during observation on the unit. On my examination today, the patient presents as intellectually disabled. He says that he came into the hospital because "I just want to fix everything in my life. I kept going down, down, down" in reference to his mood. He says that he has been feeling depressed because he has been dwelling on the loss of his parents and grandparents. He says that he doesn't like his assisted living facility even though they treat him well because he is "too young to be there." He denies any current suicidal or homicidal ideation. Denies any side effects from medications. Review of Systems ROS Limitations: Poor Historian Other No physical complaints today Objective Alert: Yes [place]: Person, Place (at least) Mood: Depressed Affect: Blunted Memory Intact: Comment (not formally assessed) Hallucinations: Other (denies current AVH) Delusions: No Delusion Type: Other (No delusions elicited) Suicidal: Ideation (Denies SI) Homicidal: Ideation (Denies HI) Insight/Judgement Poor, likely chronically so Remarks No motoric abnormalities noted. Thought process linear. Speech with somewhat odd prosody but otherwise unremarkable. Labs Admission labs reviewed. Patient's mild anemia appears to be stable with respect to previous labs. Toxicology is positive for benzodiazepines and has been positive for this agent in the past, although I see that he is ordered none now. Vitals/IOs Vital Signs Date Time Temp Pulse Resp B/P Pulse Ox O2 Delivery O2 Flow Rate FiO2 07/01/16 05:26 97.7 57 18 107/57 97 06/28/16 06:29 Room Air Intake and Output 06/30/16 06/30/16 07/01/16 08:00 16:00 00:00 Intake Total 840 ml 800 ml Balance 840 ml 800 ml Assessment & Plan Problem List: (1) Psychosis Assessment & Plan: Unclear ICD Code: F29 (2) Intellectual disability ICD Code: F79 Assessment & Plan My suspicion is that the patient was acting out in the context of his intellectual disability and this is what led to his presentation here. Unclear if the patient has/had maureen howard psychotic symptoms. Paper chart reviewed; I see no medication reconciliation form from patient's facility. I will ask the nursing staff to obtain this to ensure that we have the patient on the proper medications. In the meantime I will continue patient's Depakote and Prozac as ordered. I will provide the patient with a low-dose benzodiazepine as needed for anxiety. Continue to monitor on the inpatient unit. Continue other medications and care as ordered. Justification for Cont. Inpt. Monitoring for impairments in safety and reality construction. Discharge Planning Per counselor, patient may return to his facility following discharge. Problem Qualifiers (1) Psychosis: Qualified Code: F28 - Other psychotic disorder not due to substance or known physiological condition Shayne Burt MD Jul 01, 2016 13:43
[2016-07-01] MEDS ORDERED: LORazepam 2 MG/ML VIAL IM PRN (16:30)
[2016-07-01] MEDS ORDERED: LORazepam 1 MG TAB PO PRN (16:30)
[2016-07-01 18:00] VITALS: BP 101/57; PULSE 68; RESP 18; TEMP 97.1; O2SAT 95
[2016-07-01] MEDS: traZODone HCL 100 MG TAB PO SCH (21:34)
[2016-07-02 06:26] VITALS: BP 97/91; PULSE 60; RESP 18; TEMP 97.2; O2SAT 100
[2016-07-02] MEDS: FLUoxetine HCL 20 MG CAP PO SCH (09:00)
[2016-07-02] MEDS: GABAPENTIN 400 MG CAP PO SCH ×2 (09:00→21:08)
[2016-07-02] MEDS: FENOFIBRATE 145 MG TAB PO SCH (09:00)
[2016-07-02] MEDS: TAMSULOSIN HCL 0.4 MG CAP PO SCH ×2 (09:00→21:08)
[2016-07-02] MEDS: DIVALPROEX SODIUM E.R. 500 MG TAB PO SCH (09:00)
--- NOTE | 2016-07-02 15:10 | HHI.PYPN ---
Subjective Remarks Patient seen and examined. Chart reviewed. Case discussed in treatment team with nurse, counselor and recreation therapist. Per nursing staff, patient has been no behavioral problem. On my examination today, the patient says that he is pleased to have moved from the general psychiatric unit to the general, lower acuity inpatient psychiatric unit. He feels that there are better opportunities for socialization here. Mood is improved. He denies any suicidal or homicidal ideation. He is hopeful to return to his facility soon. I still see no medication list from patient's facility on the chart, and nurse says that he has contacted the facility to fax the medication list but has not yet received this from them. Review of Systems ROS Limitations: Poor Historian Other No physical complaints today Objective Alert: Yes [place]: Person, Place Mood: Calm Affect: Other (more euthymic today) Memory Intact: Comment (not formally assessed) Hallucinations: Other (no AVH) Delusions: No Delusion Type: Other (no delusions) Suicidal: Ideation (denies suicidal ideation) Homicidal: Ideation (denies homicidal ideation) Insight/Judgement Poor, likely chronically so Remarks No motor abnormalities noted. Grooming and hygiene are fair. Labs Labs reviewed. No new labs. Vitals/IOs Vital Signs Date Time Temp Pulse Resp B/P Pulse Ox O2 Delivery O2 Flow Rate FiO2 07/02/16 06:26 97.2 60 18 97/91 100 Intake and Output 07/01/16 07/01/16 07/02/16 08:00 16:00 00:00 Intake Total 240 ml 240 ml 1680 ml Output Total 0 ml Balance 240 ml 240 ml 1680 ml Assessment & Plan Problem List: (1) Psychosis Assessment & Plan: ?Resolved ICD Code: F29 (2) Intellectual disability ICD Code: F79 Assessment & Plan No evidence of any ongoing psychosis. Mood seems improved with better socialization on the 2600 unit. Patient is requesting discharge back to his facility. I will plan to monitor the patient overnight, continuing his current psychotropics, with plan to return to facility tomorrow barring some clinical worsening. Continue other medications and care as ordered. Justification for Cont. Inpt. Final discharge planning. Discharge Planning Monitor overnight. Anticipate discharge tomorrow barring some clinical worsening. Problem Qualifiers (1) Psychosis: Qualified Code: F28 - Other psychotic disorder not due to substance or known physiological condition Shayne Burt MD Jul 02, 2016 15:10
[2016-07-02 17:52] VITALS: BP 92/51; PULSE 58; RESP 18; TEMP 97.5; O2SAT 95
[2016-07-02] MEDS: traZODone HCL 100 MG TAB PO SCH (21:08)
[2016-07-03 05:52] VITALS: BP 103/59; PULSE 64; RESP 18; TEMP 96.5; O2SAT 98
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
[2016-07-03] MEDS: TAMSULOSIN HCL 0.4 MG CAP PO SCH (08:57)
[2016-07-03] MEDS: DIVALPROEX SODIUM E.R. 500 MG TAB PO SCH (08:57)
[2016-07-03] MEDS: GABAPENTIN 400 MG CAP PO SCH (08:58)
[2016-07-03] MEDS: FLUoxetine HCL 20 MG CAP PO SCH (08:58)
[2016-07-03] MEDS: FENOFIBRATE 145 MG TAB PO SCH (09:00)
[2016-07-03] MEDS ORDERED: DIVA500T3 PO (10:49)
== END 2016-07-03 13:25 | DRG 882 ==
LOC: NEPB 19:35 → NEDA 06-28 21:24 → H250 06-28 22:16 → H260 07-01 22:20
PROVIDERS: ADMIT Psychiatry & Neurology Psychiatry; ATTEND Psychiatry & Neurology Psychiatry
DX: F43.20 Adjustment disorder, unspecified (principal); F79 Unspecified intellectual disabilities; R45.851 Suicidal ideations; Z91.14 Patient's other noncompliance with medication regimen; F20.3 Undifferentiated schizophrenia; F41.9 Anxiety disorder, unspecified; F29 Unspecified psychosis not due to a substance or known physiological condition
CPT/HCPCS: 80048; 80053; 80061; 80164; 80307; 83036; 85025; 99284

== ENCOUNTER 2016-08-01 20:35 | Emergency (ER) | payer MEDICARE, MEDICAID ==
[~2016-08-01] VITALS: Ht 167.6 cm; Wt 100.0 kg
[~2016-08-01 20:35] MED LIST changes: -HYDR-3516 PO; -MIRA33504 PO
[2016-08-01 20:48] VITALS: BP 120/73; PULSE 88; RESP 44; TEMP 98.2; O2SAT 96
[2016-08-01 20:50] VITALS: BP 120/73; PULSE 89; RESP 14; O2SAT 96
[2016-08-01] MEDS ORDERED: MIRA33504 PO (21:18)
[2016-08-01] MEDS ORDERED: ADVA250A INH (21:18)
[2016-08-01] MEDS ORDERED: CLOT1CRE6 TOPICAL (21:18)
[2016-08-01] MEDS ORDERED: CORITAB PO (21:18)
[2016-08-01] MEDS ORDERED: NORC5TAB PO (21:18)
[2016-08-01] MEDS ORDERED: MAPA500T PO (21:18)
[2016-08-01] MEDS ORDERED: DEPA500T3 PO (21:18)
[2016-08-01] MEDS ORDERED: GUAISYP7 PO (21:18)
[2016-08-01] MEDS ORDERED: DIVA250ER PO (21:18)
[2016-08-01 22:23] LABS: AUTOMATED NEUTROPHIL # 6.2 TH/MM3 (1.8-7.7); BASOPHIL # 0.1 TH/MM3 (0-0.2); BASOPHIL % 0.6 % (0.0-2.0); EOSINOPHIL # 0.1 TH/MM3 (0-0.4); EOSINOPHIL % 0.8 % (0.0-4.0); HEMATOCRIT 38.5 % (39.0-51.0); HEMO FLAGS DIFF FINAL; LYMPH % 17.7 % (9.0-44.0); LYMPHOCYTE # 1.6 TH/MM3 (1.0-4.8); MEAN CELL VOLUME 89.8 FL (80.0-100.0); MEAN CORPUSCULAR HEMOGLOBIN 29.9 PG (27.0-34.0); MEAN CORPUSCULAR HGB CONC 33.2 % (32.0-36.0); MONO % 13.5 % (0.0-8.0); NEUT % 67.4 % (16.0-70.0); PLATELET COUNT 211 TH/MM3 (150-450); RED BLOOD COUNT 4.29 MIL/MM3 (4.50-5.90); RED CELL DISTRIBUTION WIDTH 13.3 % (11.6-17.2); WHITE BLOOD COUNT 9.2 TH/MM3 (4.0-11.0)
[2016-08-01 22:31] LABS: BICARBONATE 28.3 MEQ/L (21.0-32.0); POTASSIUM 3.4 MEQ/L (3.5-5.1)
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
[2016-08-01] MEDS ORDERED: CLOTR1%T TOPICAL (23:38)
[2016-08-02] MEDS ORDERED: HALOPERIDOL LACTATE 5 MG/ML AMP IM ONE (00:15)
[2016-08-02 03:05] VITALS: BP 124/76; PULSE 82; RESP 12; O2SAT 94
[2016-08-02 06:47] VITALS: BP 118/70; PULSE 84; RESP 12; O2SAT 98
[2016-08-02 07:37] VITALS: BP 133/81; PULSE 68; RESP 14; O2SAT 98
[2016-08-02 07:50] LABS: AMPHETAMINE, URINE NEG (NEG); BARBITURATES, URINE NEG (NEG); COCAINE, URINE NEG (NEG)
[2016-08-02 11:00] VITALS: BP 119/74; PULSE 61; RESP 18; TEMP 97.2; O2SAT 99
--- NOTE | 2016-08-02 14:20 | PD ---
History of Present Illness Chief Complaint: Altered Mental Status Time Seen by Provider: 13:10 Travel History International Travel<30 Days: No Contact w/Intl Traveler<30days: No Known affected area: No Legal Status Legal Status: [place] Act History of Present Illness: History of Present Illness HPI 45yo M with PMH of schizophrenia as well as adjustment disorder who was brought in to [facility] because he was wandering the streets. States he missed his bus and was trying to get back to his assisted living facility and when he got there that gate was locked. It is alleged that the patient threatened to harm [facility] staff.He was placed under BA by Ed physician. EMR is reviewed. He was last hospitalized at [facility] on June 2016 for having made threats that he wanted to harm his roommate at the [facility]. Patient was monitored in main Ed as well as in J pod and he presented no behavioral concerns and no aggressive or threatening behavior. Patient is seen in J pod. Awake, alert and oriented male who is dressed in hospital gown. He is calm and cooperative. His speech is of low tone . He appears to have an intellectual disability. He denies any current hallucinations , no delusions and no bre. He tells me that he does not like where he lives and that " I got mad at someone that runs the place where I live. I said some nasty things" Patient tells me that he has a social organization professor that visits him every week and that he is helping him find another place to live. He does not make any threats towards anyone and at this time does not present any homicidal ideation. He does not like to go back there but accepts this until his social organization professor can help him find another place to live. PFSH Past Medical History Asthma: Yes Blood Disorders: No Bipolar Disorder: Yes Anxiety: Yes Cancer: No Cardiovascular Problems: Yes (HTN) High Cholesterol: Yes Chest Pain: Yes COPD: Yes Cerebrovascular Accident: Yes (TIA) Developmental Delay: Yes Endocrine: No Gastrointestinal Disorders: No Genitourinary: Yes (retention) Headaches: Yes Hypertension: Yes Immune Disorder: No Implanted Vascular Access Dvce: Yes Musculoskeletal: Yes Neurologic: Yes Psychiatric: Yes Reproductive: No Respiratory: Yes (ASTHMA) Migraines: Yes Seizures: No Tetanus Vaccination: Unknown Past Surgical History Body Medical Devices: BACK RODS AND SCREWS Other Surgery: Yes Psychiatric History Psychiatric History Hx Psychiatric Treatment: Patient was hospitalized at [facility] in June of 2016 for issues related to his dislike of his [facility]. History of Inpatient Treatment: Yes ([facility] 2016) Guns or firearms in home: No Social History Single male with no family here in [place]. Lives in [facility]. On disability Hx Alcohol Use: No Hx Tobacco Use: No Hx Substance Use: No (PT DENIES) Hx of Substance Use Treatment: No Family Psychiatric History none reported Allergies-Medications (Allergen,Severity, Reaction): Coded Allergies: Cantaloupe (Verified Allergy, Unknown, 08/01/16) Tomato (Verified Allergy, Unknown, 08/01/16) Watermelon (Verified Allergy, Unknown, 08/01/16) Reported Meds & Prescriptions Reported Meds & Active Scripts Active Clotrimazole Topical (Clotrimazole) 1% Soln 1 Applic TOPICAL BID 14 Days Proair Hfa 8.5 GM Inh (Albuterol Sulfate) 90 Mcg/Act Aer 2 Puff INH Q4-6H PRN 108 mcg/actuation Reported Guaifenesin DM Liq (Guaifenesin-Dextromethorphan Liq) 10-100 Mg/5 Ml Liq 5 Ml PO Q6HR PRN Mapap (Acetaminophen) 500 Mg Tab 500 Mg PO Q8HR PRN Morris (Hydrocodone-Acetaminophen) 5-325 mg Tab 1 Tab PO TID PRN Coricidin Hbp Cough & Cold (Chlorpheniramine-Dm) 4-30 Mg Tab 1 Tab PO DAILY PRN Clotrimazole Anti-Fungal Topical (Clotrimazole) 1% Cream 1 Applic TOPICAL DAILY Advair Diskus Inh (Fluticasone-Salmeterol Inh) 250-50 Mcg/Blist Aer 1 Puff INH BID Rinse mouth after use. Miralax Powder (Polyethylene Glycol 3350 Powder) 17 Gm Powd 17 Gm PO DAILY Mix and dissolve one measuring cap-ful (17 grams) in water or juice. Depakote ER (Divalproex Sodium) 250 Mg Melecio 250 Mg PO DAILY Depakote ER (Divalproex Sodium) 500 Mg Melecio 500 Mg PO HS Tamsulosin (Tamsulosin HCl) 0.4 Mg Cap 0.4 Mg PO BID Gabapentin 800 Mg Tab 800 Mg PO BID Diazepam 5 Mg Tab 5 Mg PO BID PRN Fluoxetine (Fluoxetine HCl) 60 Mg Tab 60 Mg PO DAILY Fenofibrate 160 Mg Tab 160 Mg PO DAILY Review of Systems Except as stated in HPI: all other systems reviewed are Neg Eyes: COMPLAINS OF: Vision loss Exam Alert: Yes [place]: Person (ox3) Mood: Calm Affect: Restricted Speech: Clear (slight slurred quality), Logical Eye Contact: Indirect Memory Intact: Comment (not impaired) Hallucinations: Other (negative) Delusions: No Suicidal: Ideation (denies any) Homicidal: Ideation (denies any) Insight/Judgement poor,poor MDM Medical Decision Making Medical Record Reviewed: Yes Assessment/Plan 45 year old male with intellectual disability who was found wandering the streets after he missed his bus and was brought to ED. It is alleged that he made threats towards a worker at his [facility]. At this time the patient is not agitated and has recanted his threats. he does not present any suicidal or homicidal ideation and has presented no behavioral concerns that would indicate he needs to remain in the hospital. Furthermore he does not meet BA criteria. He is unhappy with his current living situation and is requesting to move. He agrees to work with his social organization professor to find another residence. Lift BA and discharge to [facility]. Orders Complete Blood Count With Diff (08/01/16 21:35) Basic Metabolic Panel (Bmp) (08/01/16 21:35) Haloperidol Inj (Haldol Inj) (08/02/16 00:15) Alcohol (Ethanol) (08/02/16 00:18) Psych Screen (08/02/16 00:18) Drug Screen, Random Urine (08/02/16 00:18) Diet Regular Basic (08/02/16 Breakfast) Diet Regular Basic (08/02/16 Lunch) Results Vital Signs Date Time Temp Pulse Resp B/P Pulse Ox O2 Delivery O2 Flow Rate FiO2 08/02/16 11:00 97.2 61 18 119/74 99 Room Air 08/02/16 07:37 68 14 133/81 98 Room Air 08/02/16 06:47 84 12 118/70 98 Room Air 08/02/16 03:05 82 12 124/76 94 Room Air 08/01/16 20:50 89 14 120/73 96 Room Air 08/01/16 20:48 98.2 88 44 120/73 96 Laboratory Tests Test 08/01/16 08/02/16 22:08 07:20 White Blood Count 9.2 Red Blood Count 4.29 Hemoglobin 12.8 Hematocrit 38.5 Mean Corpuscular Volume 89.8 Mean Corpuscular Hemoglobin 29.9 Mean Corpuscular Hemoglobin 33.2 Concent Red Cell Distribution Width 13.3 Platelet Count 211 Mean Platelet Volume 9.2 Neutrophils (%) (Auto) 67.4 Lymphocytes (%) (Auto) 17.7 Monocytes (%) (Auto) 13.5 Eosinophils (%) (Auto) 0.8 Basophils (%) (Auto) 0.6 Neutrophils # (Auto) 6.2 Lymphocytes # (Auto) 1.6 Monocytes # (Auto) 1.2 Eosinophils # (Auto) 0.1 Basophils # (Auto) 0.1 CBC Comment DIFF FINAL Differential Comment Sodium Level 141 Potassium Level 3.4 Chloride Level 105 Carbon Dioxide Level 28.3 Anion Gap 8 Blood Urea Nitrogen 16 Creatinine 0.88 Estimat Glomerular Filtration 94 Rate Random Glucose 84 Calcium Level 8.8 Ethyl Alcohol Level LESS THAN 3 Urine Opiates Screen NEG Urine Barbiturates Screen NEG Urine Amphetamines Screen NEG Urine Benzodiazepines Screen POS Urine Cocaine Screen NEG Urine Cannabinoids Screen NEG Diagnosis Primary Impression: Intellectual disability Additional Impression: Adjustment disorder Psychiatrically Cleared: Yes Departure Forms: Tests/Procedures Patient Instructions: General Instructions Additional Instructions: Please follow up with your PMD as needed. Return to the ED if any symptoms. Med/ Other Pt Specific Info: No Change to Meds Prescriptions Clotrimazole Topical 1% Soln1 Applic TOPICAL BID 14 Days Ref 0 Prov:Tonia Del Cid DO 08/01/16 Disposition: 01 DISCHARGE HOME Condition: Stable Problem Qualifiers Additional Impression: Adjustment disorder Qualified Code: F43.25 - Adjustment disorder with mixed disturbance of emotions and conduct Jory Moore [facility] Aug 02, 2016 14:20
== END 2016-08-02 16:30 | disposition home or self-care (01) ==
LOC: NEPE 20:35 → NEPJ 08-02 16:30
DX: F20.9 Schizophrenia, unspecified (principal); F43.25 Adjustment disorder with mixed disturbance of emotions and conduct; Z79.899 Other long term (current) drug therapy
CPT/HCPCS: 80048; 80307; 85025; 96372; 99284; J1630

== ENCOUNTER 2016-08-10 20:08 | Inpatient (IN) | payer MEDICARE, MEDICAID ==
[~2016-08-10] VITALS: Ht 162.6 cm; Wt 96.4 kg
[2016-08-10 20:08] VITALS: BP 111/63; PULSE 82; RESP 16; TEMP 98.5; O2SAT 96
[~2016-08-10 20:08] MED LIST changes: +ADVA250A INH; +CLOT1CRE6 TOPICAL; +CLOTR1%T TOPICAL; +CORITAB PO; +DEPA500T3 PO; +DIVA250ER PO; -DIVA500T3 PO; +GUAISYP7 PO; +MAPA500T PO; +MIRA33504 PO; +NORC5TAB PO; -TRAZ100T4 PO
--- NOTE | 2016-08-10 21:31 | PD ---
HPI Chief Complaint: Psychiatric Symptoms Time Seen by Provider: 21:28 Travel History International Travel<30 days: No Contact w/Intl Traveler<30days: No Traveled to known affect area: No History of Present Illness HPI 45-year-old male that presents to the ED for evaluation of hearing voices. Patient came here voluntarily for this. Patient has a chronic history of schizophrenia. He denies any medical symptoms. Per patient voices are telling him to cut himself and hurt people. He has not done so. Patient lives an [facility]. Patient states that he came here by cab to get evaluated for this. He denies any other medical symptoms. He does have a history of asthma but denies shortness of breath. Per patient the symptoms have been worsening for the past couple of days. Patient is somewhat of a poor historian secondary to his mental illness so history is limited. PFSH Past Medical History Asthma: Yes Blood Disorders: No Bipolar Disorder: Yes Anxiety: Yes Cancer: No Cardiovascular Problems: Yes (HTN) High Cholesterol: Yes Chest Pain: Yes COPD: Yes Cerebrovascular Accident: Yes (TIA) Developmental Delay: Yes Endocrine: No Gastrointestinal Disorders: No Genitourinary: Yes (retention) Headaches: Yes Hypertension: Yes Immune Disorder: No Implanted Vascular Access Dvce: Yes Musculoskeletal: Yes Neurologic: Yes Psychiatric: Yes Reproductive: No Respiratory: Yes (ASTHMA) Migraines: Yes Seizures: No Past Surgical History Body Medical Devices: BACK RODS AND SCREWS Other Surgery: Yes Social History Alcohol Use: No Tobacco Use: No Substance Use: No (PT DENIES) Allergies-Medications (Allergen,Severity, Reaction): Coded Allergies: Cantaloupe (Verified Allergy, Unknown, 08/10/16) Tomato (Verified Allergy, Unknown, 08/10/16) Watermelon (Verified Allergy, Unknown, 08/10/16) Reported Meds & Prescriptions Reported Meds & Active Scripts Active Reported Coricidin Hbp Cough & Cold (Chlorpheniramine-Dm) 4-30 Mg Tab 1 Tab PO Q6H PRN Diazepam 5 Mg Tab 5 Mg PO BID PRN Clotrimazole-Betamethasone Topical (Betamethasone/Clotrimazole) 1-0.05% Cream 1 Applic TOPICAL BID PRN Trazodone (Trazodone HCl) 100 Mg Tab 100 Mg PO HS Diclofenac Topical 1% Gel 1 Applic TOPICAL DAILY PRN Advair Diskus Inh (Fluticasone-Salmeterol Inh) 250-50 Mcg/Blist Aer 1 Puff INH BID Rinse mouth after use. Miralax Powder (Polyethylene Glycol 3350 Powder) 17 Gm Powd 17 Gm PO DAILY Mix and dissolve one measuring cap-ful (17 grams) in water or juice. Depakote ER (Divalproex Sodium) 250 Mg Melecio 250 Mg PO DAILY Depakote ER (Divalproex Sodium) 500 Mg Melecio 500 Mg PO HS Tamsulosin (Tamsulosin HCl) 0.4 Mg Cap 0.4 Mg PO BID Gabapentin 800 Mg Tab 800 Mg PO BID Fluoxetine (Fluoxetine HCl) 60 Mg Tab 60 Mg PO DAILY Fenofibrate 160 Mg Tab 160 Mg PO DAILY Review of Systems ROS Limitations: Poor Historian Except as stated in HPI: all other systems reviewed are Neg Physical Exam Exam Limitations: Poor Historian Narrative GENERAL: SKIN: Warm and dry. HEAD: Atraumatic. Normocephalic. EYES: Pupils equal and round. No scleral icterus. No injection or drainage. ENT: No nasal bleeding or discharge. Mucous membranes pink and moist. Tongue is midline. No uvula deviation. NECK: Trachea midline. No JVD. CARDIOVASCULAR: Regular rate and rhythm. No murmurs, S3, S4. RESPIRATORY: No accessory muscle use. Clear to auscultation. Breath sounds equal bilaterally. GASTROINTESTINAL: Abdomen soft, non-tender, nondistended. Hepatic and splenic margins not palpable. MUSCULOSKELETAL: Extremities without clubbing, cyanosis, or edema. No obvious deformities. Full range of motion of the upper and lower extremities bilaterally. 2+ pulses bilaterally. NEUROLOGICAL: Awake and alert. No obvious cranial nerve deficits. Motor grossly within normal limits. Five out of 5 muscle strength in the arms and legs. Normal speech. PSYCHIATRIC: Appropriate mood and affect; insight and judgment normal Data Data Last Documented VS Vital Signs Date Time Temp Pulse Resp B/P Pulse Ox O2 Delivery O2 Flow Rate FiO2 08/10/16 20:08 98.5 82 16 111/63 96 Room Air Orders Psych Screen (08/10/16 21:07) Complete Blood Count With Diff (08/10/16 21:13) Comprehensive Metabolic Panel (08/10/16 21:13) Drug Screen, Random Urine (08/10/16 21:13) Alcohol (Ethanol) (08/10/16 21:13) Valproic Acid (Depakene) (08/10/16 21:22) Labs Laboratory Tests Test 08/10/16 21:25 White Blood Count 5.4 TH/MM3 Red Blood Count 4.09 MIL/MM3 Hemoglobin 12.2 GM/DL Hematocrit 36.5 % Mean Corpuscular Volume 89.4 FL Mean Corpuscular Hemoglobin 29.8 PG Mean Corpuscular Hemoglobin 33.4 % Concent Red Cell Distribution Width 13.1 % Platelet Count 219 TH/MM3 Mean Platelet Volume 9.8 FL Neutrophils (%) (Auto) 53.1 % Lymphocytes (%) (Auto) 33.3 % Monocytes (%) (Auto) 11.1 % Eosinophils (%) (Auto) 2.0 % Basophils (%) (Auto) 0.5 % Neutrophils # (Auto) 2.9 TH/MM3 Lymphocytes # (Auto) 1.8 TH/MM3 Monocytes # (Auto) 0.6 TH/MM3 Eosinophils # (Auto) 0.1 TH/MM3 Basophils # (Auto) 0.0 TH/MM3 CBC Comment DIFF FINAL Differential Comment Valproic Acid (Depakene) Level 74 MCG/ML MDM Medical Decision Making Medical Screen Exam Complete: Yes Emergency Medical Condition: Yes Medical Record Reviewed: Yes Interpretation(s) CBC & BMP Diagram 08/10/16 21:25 Differential Diagnosis Depression versus suicidal ideation versus anxiety versus adjustment disorder versus mood disorder versus bipolar disorder versus schizophrenia versus paranoid disorder versus psychosis versus substance abuse versus alcohol abuse versus alcohol induced psychosis versus homicidality addition versus cutting versus personality disorder Narrative Course 45-year-old male that presents to the ED for evaluation of psych. Patient was properly examined and was found to have signs and symptoms consistent appears to be schizophrenia. No sign of acute medical distress. Labs were drawn. Patient will be medically clear. Okay to be seen by psych. Mental health screening was discussed with the patient. Diagnosis Primary Impression: Schizophrenia Qualified Code: F20.9 - Schizophrenia, unspecified type Pepito Mahoney August 10, 2016 21:31
[2016-08-10] MEDS ORDERED: DICL1GEL7 TOPICAL (21:58)
[2016-08-10] MEDS ORDERED: DIAZ5TAB PO (21:58)
[2016-08-10] MEDS ORDERED: TRAZ100T4 PO (21:58)
[2016-08-10] MEDS ORDERED: CLOTCRE TOPICAL (21:58)
[2016-08-10] MEDS ORDERED: CORITAB PO (22:00)
[2016-08-10 22:01] LABS: AUTOMATED NEUTROPHIL # 2.9 TH/MM3 (1.8-7.7); BASOPHIL % 0.5 % (0.0-2.0); EOSINOPHIL # 0.1 TH/MM3 (0-0.4); HEMATOCRIT 36.5 % (39.0-51.0); HEMO FLAGS DIFF FINAL; LYMPH % 33.3 % (9.0-44.0); LYMPHOCYTE # 1.8 TH/MM3 (1.0-4.8); MEAN CELL VOLUME 89.4 FL (80.0-100.0); MEAN CORPUSCULAR HEMOGLOBIN 29.8 PG (27.0-34.0); MEAN CORPUSCULAR HGB CONC 33.4 % (32.0-36.0); MONO % 11.1 % (0.0-8.0); NEUT % 53.1 % (16.0-70.0); PLATELET COUNT 219 TH/MM3 (150-450); RED BLOOD COUNT 4.09 MIL/MM3 (4.50-5.90); RED CELL DISTRIBUTION WIDTH 13.1 % (11.6-17.2); WHITE BLOOD COUNT 5.4 TH/MM3 (4.0-11.0)
[2016-08-10 22:35] LABS: ANION GAP 7 MEQ/L (5-15)
[2016-08-10 22:38] LABS: ALKALINE PHOSPHATASE 35 U/L (45-117); ALT (GPT) 19 U/L (12-78); AST (GOT) 15 U/L (15-37); BICARBONATE 28.7 MEQ/L (21.0-32.0); BLOOD UREA NITROGEN 15 MG/DL (7-18); CHLORIDE 105 MEQ/L (98-107); GLOMERULAR FILTRATION RATE 92 ML/MIN (>89); SODIUM (NA) 141 MEQ/L (136-145); TOTAL BILIRUBIN ADULT 0.2 MG/DL (0.2-1.0)
[2016-08-10 22:39] LABS: AMPHETAMINE, URINE NEG (NEG); BARBITURATES, URINE NEG (NEG); COCAINE, URINE NEG (NEG)
[2016-08-10 23:07] VITALS: BP 102/68; PULSE 62; RESP 18; O2SAT 96
[2016-08-11 02:40] VITALS: BP 116/70; PULSE 58; RESP 18; O2SAT 98
[2016-08-11] MEDS ORDERED: hydrOXYzine HCL 50 MG TAB PO PRN (09:45)
[2016-08-11] MEDS ORDERED: MAGNESIUM HYDROXIDE SUSP 30 ML CUP PO PRN (09:45)
[2016-08-11] MEDS ORDERED: BENZTROPINE MESYLATE 2 MG/2 ML VIAL IM PRN (09:45)
[2016-08-11] MEDS ORDERED: BENZTROPINE MESYLATE 1 MG TAB PO PRN (09:45)
[2016-08-11] MEDS ORDERED: ALUMINUM/MAGNESIUM/SIMETH 30 ML CUP PO PRN (09:45)
[2016-08-11] MEDS ORDERED: ACETAMINOPHEN 325 MG TAB PO PRN (09:45)
--- NOTE | 2016-08-11 09:50 | HHI.HP ---
Provisional Diagnosis Admission Date 08/11/2016 [place]. 1. Adjustment disorder with mixed disturbance of emotions and conduct [place] II. 1. Intellectual disability [place] V. GAF is 40 presently Certification of Person's Competence To Provide Express and Informed Consent I have personally examined Gopal Hay , a person being served at [facility] on, August 11, 2016 09:39. Express and informed consent means consent voluntarily given in writing, by a competent person, after sufficient explanation and disclosure of the subject matter involved to enable the person to make a knowing and willful decision without any element of force, fraud, deceit, duress, or other form of constraint or coercion. This person is 18 years of age or older, is not now known to be incompetent to consent to treatment with a guardian advocate, and does not have a health care surrogate or proxy currently making medical treatment decisions. I have found this person to be one of the following: [x] Competent to provide express and informed consent, as defined above, for voluntary admission to this facility and is competent to provide express and informed consent for treatment. He/she has the consistent capacity to make well reasoned, willful, and knowing decisions concerning his or her medical or mental health treatment. The person fully and consistently understands the purpose of the admission for examination/placement and is fully capable of personally exercising all rights assured [place] Incompetent to provide express and informed consent to voluntary admission, and this is incompetent to provide express and informed consent to treatment. The person must be transferred to involuntary status and a petition for a guardian advocate filed with the Circuit Court. [] Refusing to provide express and informed consent to voluntary admission but is competent to provide express and informed consent for treatment. The person must be discharged or transferred to involuntary status. Form shall be completed within 24 hours of a person's arrival at the receiving facility and filed in the clinical record of each person: 1. Admitted on a voluntary basis 2. Permitted to provide express and informed consent to his/her own treatment 3. Allowed to transfer from involuntary to voluntary status 4. Prior to permitting a person to consent to his or her own treatment after having been previously found incompetent to consent to treatment. History of Present Illness Capacity: Has Capacity HPI Mr. Hay is a 45-year-old male with a history of intellectual disability as well as adjustment disorder and presenting from his half-way voluntarily with complaints of command auditory hallucinations. Reviewing the electronic medical record, I see that the patient was admitted under my care in June of this year. Patient seen and examined. Chart reviewed. Case discussed with nursing staff. There has been no evidence of any suicidality or homicidality while the patient has been under observation in the J-pod. On my evaluation this morning , the patient presents as somewhat childlike. His affect is restricted and dysphoric and his general demeanor is somewhat withdrawn. He apparently has been having some conflict with other members of the half-way. He says that yesterday he had acute onset of voices, command in nature, and he says this happened without clear trigger. He denies auditory hallucinations so far this morning noting "not yet." He endorses suicidal ideation "sometimes" but denies any homicidal ideation. He describes his mood as sad but says that his sleep and appetite are fair. He says that he misses his grandparents who in the summer and fall of last year. No evident delusions. No hypomanic or manic symptoms. The remainder of the psychiatric ROS is negative. Past psychiatric history: Patient with psychiatric history as detailed above. He currently follows with Dr. Cuellar. His most recent psychiatric admission was here at [place]. He denies a history of suicide attempts. Family history: Patient reports a family history of some sort of mental illness in his father's side of the family, he is not sure what. Chemical dependency history: Patient denies any abuse of drugs or alcohol. Social history: Patient reports that he lives in a half-way. He says that he never attended school saying "I [place] my [place]." He is single with no children. No legal issues. No baptist beliefs. No reported access to guns or firearms. Review of Systems ROS Limitations: Poor Historian Except as stated in HPI: all other systems reviewed are Neg Past Psych History Psychological trauma history None reported Violence risk - others (6 mos) Indeterminate. Reported CAH to hurt others yesterday, none today. Violence risk - self (6 mos) Indeterminate. Reported CAH to hurt self yesterday, none today. Substance Abuse History Drugs/Alcohol past 12 months See above Past Family Social History Coded Allergies: Cantaloupe (Verified Allergy, Unknown, 5/6/17) Tomato (Verified Allergy, Unknown, 08/10/16) Watermelon (Verified Allergy, Unknown, 08/10/16) Past Medical History See electronic medical record Reported Medications Chlorpheniramine-Dm (Coricidin Hbp Cough & Cold)4-30 Mg Tab1 Tab PO Q6H PRN ( Chest Congestion/Cough) Ref 0 08/10/16 Clotrimazole-Betamethasone Topical 1-0.05% Cream1 Applic TOPICAL BID PRN (SKIN) #0 GM Ref 0 08/10/16 Trazodone 100 Mg Han486 Mg PO HS #30 TAB Ref 0 08/10/16 Diclofenac Topical 1% Gel1 Applic TOPICAL DAILY PRN (INFLAMATION) #30 GM Ref 0 08/10/16 Fluticasone-Salmeterol Inh (Advair Diskus Inh)250-50 Mcg/Blist Aer1 Puff INH BID #1 INHALER Ref 0 Rinse mouth after use. 08/01/16 Polyethylene Glycol 3350 Powder (Miralax Powder)17 Gm Powd17 Gm PO DAILY #1 BOTTLE Ref 0 Mix and dissolve one measuring cap-ful (17 grams) in water or juice. 08/01/16 Divalproex ER (Depakote ER)250 Mg [id number] Mg PO DAILY #30 TAB Ref 0 08/01/16 Tamsulosin 0.4 Mg Cap0.4 Mg PO BID #30 CAP Ref 0 03/23/16 Gabapentin 800 Mg Noa042 Mg PO BID #90 TAB Ref 0 03/23/16 Fluoxetine 60 Mg Tab60 Mg PO DAILY #30 TAB Ref 0 03/23/16 Fenofibrate 160 Mg Zzp233 Mg PO DAILY #30 TAB Ref 0 03/23/16 Discontinued Reported Medications Diazepam 5 Mg Tab5 Mg PO BID PRN (ANXIETY) Ref 0 08/10/16 Divalproex ER (Depakote ER)500 Mg [id number] Mg PO HS #30 TAB Ref 0 08/01/16 Guaifenesin-Dextromethorphan Liq (Guaifenesin DM Liq)10-100 Mg/5 Ml Liq5 Ml PO Q6HR PRN (COUGH) #1 BOTTLE Ref 0 08/01/16 Acetaminophen (Mapap)500 Mg Lge548 Mg PO Q8HR PRN (PAIN) Ref 0 08/01/16 Hydrocodone-Acetaminophen ([place])5-325 mg Tab1 Tab PO TID PRN (PAIN) Ref 0 08/01/16 Chlorpheniramine-Dm (Coricidin Hbp Cough & Cold)4-30 Mg Tab1 Tab PO DAILY PRN ( Chest Congestion/Cough) Ref 0 08/01/16 Clotrimazole Topical (Clotrimazole Anti-Fungal Topical)1% Cream1 Applic TOPICAL DAILY #1 TUBE Ref 0 08/01/16 Diazepam 5 Mg Tab5 Mg PO BID PRN (MILD ANXIETY) Ref 0 03/23/16 Discontinued Scripts Clotrimazole Topical 1% Soln1 Applic TOPICAL BID 14 Days Ref 0 Prov:Del CidTonia DO 08/01/16 Albuterol 8.5 GM Inh (Proair Hfa 8.5 GM Inh)90 Mcg/Act Aer2 Puff INH Q4-6H PRN ( SHORTNESS OF BREATH) #1 INHALER Ref 0 108 mcg/actuation Prov:Elana Romero MD 03/23/16 Current Medications Medications (Trade) Dose Ordered Sig/Ron Route Start Time Stop Time Status Last Admin (Lotrisone Cream) 1 applic BID PRN TOPICAL 08/11/16 09:45 UNV (Depakote Er) 250 mg DAILY PO 08/12/16 09:00 (PROzac) 60 mg DAILY PO 08/12/16 09:00 UNV (Neurontin) 800 mg BID PO 08/11/16 21:00 UNV (Miralax) 17 gm DAILY PO 08/12/16 09:00 UNV (Flomax) 0.4 mg BID PO 08/11/16 21:00 UNV (Desyrel) 100 mg HS PO 08/11/16 21:00 UNV Non-Formulary Medication 160 mg DAILY PO 08/12/16 09:00 UNV Non-Formulary Medication 1 puff BID INH 08/11/16 21:00 UNV Family History See above Social History See above Patient's Strengths (min. 2) In monitored setting. Verbally fluent. Physical Exam Physical exam completed by ED provider. On my examination today, the patient appears to be well-nourished and well-developed and in no acute physical distress. No motor abnormalities noted. Laboratories and vitals signs reviewed : Vital Signs Vital Signs Date Time Temp Pulse Resp B/P Pulse Ox O2 Delivery O2 Flow Rate FiO2 08/11/16 02:40 58 18 116/70 98 08/10/16 20:08 98.5 Room Air Lab Results Item Value Date Time White Blood Count 5.4 TH/MM3 08/10/162124 Hemoglobin 12.2 GM/DL L 08/10/162124 Platelet Count 219 TH/MM3 08/10/162124 Sodium Level 141 MEQ/L 08/10/162124 Potassium Level 4.0 MEQ/L 08/10/162124 Chloride Level 105 MEQ/L 08/10/162124 Carbon Dioxide Level 28.7 MEQ/L 08/10/162124 Blood Urea Nitrogen 15 MG/DL 08/10/162124 Creatinine 0.90 MG/DL 08/10/162124 Aspartate Amino Transf (AST/SGOT) 15 U/L 08/10/162124 Alanine Aminotransferase (ALT/SGPT) 19 U/L 08/10/162124 Alkaline Phosphatase 35 U/L L 08/10/162124 Urine Benzodiazepines Screen POS H 08/10/162149 Valproic Acid (Depakene) Level 74 MCG/ML 08/10/162124 Ethyl Alcohol Level LESS THAN 3 MG/DL 08/10/162124 Benzodiazepines are prescribed to him. Anemia is chronic and stable. Depakote level is within the therapeutic range. Mental Status Examination Patient is in hospital gown. He is well groomed. He is awake and alert and oriented to person and hospital at least. No motor abnormalities noted. Speech is somewhat slow and soft. Language and fund of knowledge seem reduced. Mood and affect are somewhat restricted and dysphoric and childlike. Thought process linear. No loosening of associations. No evident delusions. Denies audiovisual hallucinations this morning so far but was reporting command auditory hallucinations to hurt self/others yesterday. No suicidal or homicidal ideation. Insight and judgment are fair to poor at best, perhaps patient's chronic condition. Assessment & Plan Problem List: (1) Adjustment disorder ICD Code: F43.20 (2) Intellectual disability ICD Code: F79 Assessment & Plan This is a 45-year-old male with psychiatric history as detailed above who presents for voluntary psychiatric evaluation. Patient was reporting command auditory hallucinations to hurt self/others yesterday, apparently in the setting of conflict with other residents at his half-way. It is my suspicion that these voices represent an adjustment reaction to his conflict in the setting of his intellectual disability, and a primary psychotic disorder seems less likely. I note that the patient is not presently on an antipsychotic. Patient requires psychiatric admission at this time for safety and observation as well as stabilization. Admit inpatient. Voluntary status. I will continue patient's home psychotropics including Prozac, trazodone, Depakote and Valium. I will augment patient's Prozac with low-dose Abilify, which may be titrated to effect. Atarax as needed for anxiety, Cogentin as needed for EPS. Vitals every shift. Counselor to see. Disposition planning. Estimated length of stay: 3-5 days. Discharge Planning Pending psychiatric stabilization. Request HC Surrog/Guard Advoc?: No Problem Qualifiers (1) Adjustment disorder: Qualified Code: F43.25 - Adjustment disorder with mixed disturbance of emotions and conduct Shayne Burt MD August 11, 2016 09:50
[2016-08-11] MEDS ORDERED: BETAMETHASONE/CLOTRIMAZOLE CREAM 15 GM TOPICAL PRN (10:00)
[2016-08-11 10:42] VITALS: BP 104/60; PULSE 58; RESP 18
[2016-08-11 13:32] VITALS: BP 108/68; PULSE 60; RESP 16; TEMP 96.8; O2SAT 98
[2016-08-11] MEDS: BUDESONIDE-FORMOTEROL 160/4.5 MCG INHALER INH SCH (21:00)
[2016-08-11] MEDS: GABAPENTIN 400 MG CAP PO SCH (21:24)
[2016-08-11] MEDS: DIAZEPAM 5 MG TAB PO SCH (21:24)
[2016-08-11] MEDS: DIVALPROEX SODIUM E.R. 500 MG TAB PO SCH (21:24)
[2016-08-11] MEDS: traZODone HCL 100 MG TAB PO SCH (21:24)
[2016-08-11] MEDS: TAMSULOSIN HCL 0.4 MG CAP PO SCH (21:24)
[2016-08-11 21:55] VITALS: BP 109/60; PULSE 51; RESP 18; TEMP 96.4; O2SAT 98
[2016-08-12 06:15] VITALS: BP 101/64; PULSE 62; RESP 16; TEMP 97.8
[2016-08-12] MEDS: REMOVE OLD PATCH T-DERMAL SCH (09:00)
[2016-08-12] MEDS: ARIPiprazole 2 MG TAB PO SCH (09:00)
[2016-08-12] MEDS ORDERED: DIVALPROEX SODIUM E.R. 250 MG TAB PO SCH (09:00)
[2016-08-12] MEDS: NICOTINE 21 MG/24 HR PATCH T-DERMAL SCH (09:00)
[2016-08-12] MEDS: POLYETHYLENE GLYCOL 17 GM PKG PO SCH (09:08)
[2016-08-12] MEDS: FENOFIBRATE 145 MG TAB PO SCH (09:08)
[2016-08-12] MEDS: TAMSULOSIN HCL 0.4 MG CAP PO SCH ×2 (09:08→20:37)
[2016-08-12] MEDS: DIAZEPAM 5 MG TAB PO SCH ×2 (09:08→20:37)
[2016-08-12] MEDS: DIVALPROEX SODIUM DELAYED RELEASE 250 MG TAB PO SCH (09:08)
[2016-08-12] MEDS: FLUoxetine HCL 20 MG CAP PO SCH (09:09)
[2016-08-12] MEDS: GABAPENTIN 400 MG CAP PO SCH ×2 (09:09→20:37)
[2016-08-12 09:33] LABS: HDL CHOLESTEROL 35.3 MG/DL (40.0-60.0); LDL CHOLESTEROL 91 MG/DL (0-99)
[2016-08-12] MEDS ORDERED: INFLUENZA VIRUS VACCINE (QUADRIVALENT) 0.5 ML SYR IM ONE (10:00)
[2016-08-12] MEDS ORDERED: PNEUMOCOCCAL POLYVALENT INJ 25 MCG/0.5 ML SYR IM ONE (10:00)
[2016-08-12 11:17] LABS: HEMOGLOBIN A1b 1.4 %; HEMOGLOBIN Ao 86.7 %; HEMOGLOBIN LA1C 1.9 %; HEMOGLOBIN P3 3.4 %
[2016-08-12] MEDS: BUDESONIDE-FORMOTEROL 160/4.5 MCG INHALER INH SCH ×2 (13:30→20:39)
--- NOTE | 2016-08-12 16:47 | HHI.PYPN ---
Subjective Remarks Found in bed. Not very motivated or conversational. Remains depressed. Review of Systems Except as stated in HPI: all other systems reviewed are Neg Objective Alert: Yes Sulphur: Person, Place, Date, Situation Mood: Depressed Affect: Restricted Memory Intact: Immediate, Recent, Remote Hallucinations: Other Delusions: No Delusion Type: Other Suicidal: Ideation Homicidal: Ideation Insight/Judgment Impaired Labs Test 08/12/16 08:26 Hemoglobin A1c 5.1 % Triglycerides Level 137 MG/DL Cholesterol Level 154 MG/DL LDL Cholesterol 91 MG/DL HDL Cholesterol 35.3 MG/DL Cholesterol/HDL Ratio 4.36 RATIO Vitals/IOs Vital Signs Date Time Temp Pulse Resp B/P Pulse Ox O2 Delivery O2 Flow Rate FiO2 08/12/16 06:15 97.8 62 16 101/64 08/11/16 21:55 98 08/11/16 10:42 Room Air Assessment & Plan Problem List: (1) Adjustment disorder ICD Code: F43.20 (2) Intellectual disability ICD Code: F79 Assessment & Plan Estimated LOS: 3 days allow psychiatric medication to work. Justification for Cont. Inpt. Likely to decompensate at lower level of care. Request HC Surrog/Guard Advoc?: No Problem Qualifiers (1) Adjustment disorder: Qualified Code: F43.25 - Adjustment disorder with mixed disturbance of emotions and conduct Yanick Escobar MD August 12, 2016 16:47
[2016-08-12 18:00] VITALS: BP 94/62; PULSE 57; RESP 18; TEMP 96.1; O2SAT 98
[2016-08-12] MEDS: DIVALPROEX SODIUM E.R. 500 MG TAB PO SCH (20:37)
[2016-08-12] MEDS: traZODone HCL 100 MG TAB PO SCH (20:37)
[2016-08-13 04:41] VITALS: BP 99/55; PULSE 58; RESP 16; TEMP 97.8; O2SAT 94
[2016-08-13] MEDS: POLYETHYLENE GLYCOL 17 GM PKG PO SCH (09:00)
[2016-08-13] MEDS: BUDESONIDE-FORMOTEROL 160/4.5 MCG INHALER INH SCH ×2 (09:00→21:30)
[2016-08-13] MEDS: REMOVE OLD PATCH T-DERMAL SCH (09:00)
[2016-08-13] MEDS: NICOTINE 21 MG/24 HR PATCH T-DERMAL SCH (09:00)
[2016-08-13] MEDS: FENOFIBRATE 145 MG TAB PO SCH (09:17)
[2016-08-13] MEDS: ARIPiprazole 2 MG TAB PO SCH (09:19)
[2016-08-13] MEDS: GABAPENTIN 400 MG CAP PO SCH ×2 (09:19→20:44)
[2016-08-13] MEDS: FLUoxetine HCL 20 MG CAP PO SCH (09:19)
[2016-08-13] MEDS: DIVALPROEX SODIUM DELAYED RELEASE 250 MG TAB PO SCH (09:19)
[2016-08-13] MEDS: TAMSULOSIN HCL 0.4 MG CAP PO SCH ×2 (09:19→20:45)
[2016-08-13] MEDS: DIAZEPAM 5 MG TAB PO SCH ×2 (09:19→20:43)
[2016-08-13 18:11] VITALS: BP 94/59; PULSE 62; RESP 18; TEMP 97.2; O2SAT 94
[2016-08-13] MEDS: traZODone HCL 100 MG TAB PO SCH (20:44)
[2016-08-13] MEDS: DIVALPROEX SODIUM E.R. 500 MG TAB PO SCH (20:47)
[2016-08-14 06:11] VITALS: BP 95/52; PULSE 67; RESP 15; TEMP 97.7
[2016-08-14] MEDS: ARIPiprazole 2 MG TAB PO SCH (09:00)
[2016-08-14] MEDS: REMOVE OLD PATCH T-DERMAL SCH (09:00)
[2016-08-14] MEDS: NICOTINE 21 MG/24 HR PATCH T-DERMAL SCH (09:00)
[2016-08-14] MEDS: POLYETHYLENE GLYCOL 17 GM PKG PO SCH (09:00)
[2016-08-14] MEDS: BUDESONIDE-FORMOTEROL 160/4.5 MCG INHALER INH SCH ×2 (09:00→21:15)
[2016-08-14] MEDS: GABAPENTIN 400 MG CAP PO SCH ×2 (09:12→21:14)
[2016-08-14] MEDS: FLUoxetine HCL 20 MG CAP PO SCH (09:12)
[2016-08-14] MEDS: DIAZEPAM 5 MG TAB PO SCH ×2 (09:12→21:14)
[2016-08-14] MEDS: DIVALPROEX SODIUM DELAYED RELEASE 250 MG TAB PO SCH (09:12)
[2016-08-14] MEDS: FENOFIBRATE 145 MG TAB PO SCH (09:13)
[2016-08-14] MEDS: TAMSULOSIN HCL 0.4 MG CAP PO SCH ×2 (09:13→21:14)
[2016-08-14 17:41] VITALS: BP 100/70; PULSE 78; RESP 15; TEMP 97.6; O2SAT 93
[2016-08-14] MEDS: traZODone HCL 100 MG TAB PO SCH (21:14)
[2016-08-14] MEDS: DIVALPROEX SODIUM E.R. 500 MG TAB PO SCH (21:15)
[2016-08-15 05:56] VITALS: BP 104/73; PULSE 70; RESP 18; TEMP 98.1; O2SAT 96
[2016-08-15] MEDS: GABAPENTIN 400 MG CAP PO SCH (08:45)
[2016-08-15] MEDS: FLUoxetine HCL 20 MG CAP PO SCH (08:46)
[2016-08-15] MEDS: FENOFIBRATE 145 MG TAB PO SCH (08:46)
[2016-08-15] MEDS: DIVALPROEX SODIUM DELAYED RELEASE 250 MG TAB PO SCH (08:46)
[2016-08-15] MEDS: DIAZEPAM 5 MG TAB PO SCH (08:47)
[2016-08-15] MEDS: TAMSULOSIN HCL 0.4 MG CAP PO SCH (08:47)
[2016-08-15] MEDS: POLYETHYLENE GLYCOL 17 GM PKG PO SCH (09:00)
[2016-08-15] MEDS: ARIPiprazole 2 MG TAB PO SCH (09:00)
[2016-08-15] MEDS: NICOTINE 21 MG/24 HR PATCH T-DERMAL SCH (09:00)
[2016-08-15] MEDS: REMOVE OLD PATCH T-DERMAL SCH (09:00)
[2016-08-15] MEDS: BUDESONIDE-FORMOTEROL 160/4.5 MCG INHALER INH SCH (09:00)
--- NOTE | 2016-08-15 13:22 | HHI.DS ---
Psychiatry Discharge Summary Inpatient Psychiatric care?: Yes Advance Directive: No Reason Not Provided: Due to Patient Condition Mental Health AdvanceDirective: No Health Care Proxy: No Admission Admission Date August 11, 2016 at 09:34 Admission Diagnosis: (1) Adjustment disorder ICD Code: F43.20 Brief History Mr. Hay is a 45-year-old male with a history of intellectual disability as well as adjustment disorder and presenting from his detention voluntarily with complaints of command auditory hallucinations. Reviewing the electronic medical record, I see that the patient was admitted under my care in June of this year. Patient seen and examined. Chart reviewed. Case discussed with nursing staff. There has been no evidence of any suicidality or homicidality while the patient has been under observation in the J-pod. On my evaluation this morning , the patient presents as somewhat childlike. His affect is restricted and dysphoric and his general demeanor is somewhat withdrawn. He apparently has been having some conflict with other members of the detention. He says that yesterday he had acute onset of voices, command in nature, and he says this happened without clear trigger. He denies auditory hallucinations so far this morning noting "not yet." He endorses suicidal ideation "sometimes" but denies any homicidal ideation. He describes his mood as sad but says that his sleep and appetite are fair. He says that he misses his grandparents who in the summer and fall of last year. No evident delusions. No hypomanic or manic symptoms. The remainder of the psychiatric ROS is negative. Past psychiatric history: Patient with psychiatric history as detailed above. He currently follows with Dr. Cuellar. His most recent psychiatric admission was here at [place]. He denies a history of suicide attempts. Family history: Patient reports a family history of some sort of mental illness in his father's side of the family, he is not sure what. Chemical dependency history: Patient denies any abuse of drugs or alcohol. Social history: Patient reports that he lives in a detention. He says that he never attended school saying "I had [place] to [place] my [place]." He is single with no children. No legal issues. No gnosticism beliefs. No reported access to guns or firearms. Tobacco Use In Past 30 Days: No Tobacco Past 30 Days Alcohol Use: Never Hospital Course Participated in individual and group therapies. No procedures were performed. Minimal changes to medication. At the time of discharge the patient was requesting discharge. He did not meet criteria for Freed[place] act or inpatient hospitalization. Results Blood Pressure 104 / 73 Vital Signs Date Time Temp Pulse Resp B/P Pulse Ox O2 Delivery O2 Flow Rate FiO2 08/15/16 05:56 98.1 70 18 104/73 96 08/11/16 10:42 Room Air Laboratory Results Test 08/12/16 08:26 Hemoglobin A1c 5.1 % (4.3-6.0) Triglycerides Level 137 MG/DL (42-150) Cholesterol Level 154 MG/DL (120-200) LDL Cholesterol 91 MG/DL (0-99) HDL Cholesterol 35.3 MG/DL (40.0-60.0) Summary of Procedures None Pending results at discharge: No Medications # of Antipsychotic meds at D/C: 1 Appropriate >1 Antipsych meds?: 1 Approp Antipsych med options 1 - Minimum of three failed multiple trials of monotherapy. 2 - Documented plan to taper to monotherapy due to previous use of multiple meds OR cross-taper in progress at D/C. 3 - Documentation of augmentation of Clozapine. 4 - Justification other than those listed in allowable values 1-3, document here : Discharge Discharge Date: August 15, 2016 Discharge Diagnosis: (1) Adjustment disorder with mixed disturbance of emotions and conduct ICD Code: F43.25 Mental Status Exam at Disch No suicidal or homicidal ideation, plan or intent. Patient cognition was felt to be baseline. No psychotic symptoms. Patient was verbally krystal for safety. Pt Condition on Discharge: Stable Discharge Disposition: Discharge Home Discharge Instructions Diet Instructions: As Tolerated, No Restrictions Activities you can perform: Regular-No Restrictions Discharge Time <= 30 minutes Discharge/Advance Care Plan Health Problems: (1) Adjustment disorder (2) Intellectual disability Goals to promote your health * To prevent worsening of your condition and complications * To maintain your health at the optimal level Directions to meet your goals Take your medications as prescribed Follow your dietary instruction Follow activity as directed Keep your appointments as scheduled Take your immunizations and boosters as scheduled If your symptoms worsen call your PCP, if no PCP go to Urgent Care Center or Emergency Room For 28/10 questions related to your inpatient stay or results of tests pending at discharge, please contact Dr. Yanick Escobar at Smoking is Dangerous to Your Health. Avoid second hand smoking Problem Qualifiers (1) Adjustment disorder: Qualified Code: F43.25 - Adjustment disorder with mixed disturbance of emotions and conduct Yanick Escobar MD August 15, 2016 13:22
[2016-08-15] MEDS ORDERED: DEPA500T3 PO (13:29)
[2016-08-15] MEDS ORDERED: NEUR400C PO (13:29)
[2016-08-15] MEDS ORDERED: FLUO20CA4 PO (13:29)
[2016-08-15] MEDS ORDERED: DIVA250T PO (13:29)
[2016-08-15] MEDS ORDERED: TAMS5CAP PO (13:29)
[2016-08-15] MEDS ORDERED: ABIL2TAB2 PO (13:29)
[2016-08-15] MEDS ORDERED: TRAZ50TA12 PO (13:29)
[2016-08-15] MEDS ORDERED: DIAZ5 PO (13:29)
== END 2016-08-15 17:40 | disposition home or self-care (01) | DRG 882 ==
LOC: NEPJ 20:08 → NEDA 08-11 09:34 → H260 08-11 11:30
PROVIDERS: ADMIT Psychiatry & Neurology Psychiatry; ATTEND Psychiatry & Neurology Psychiatry
DX: F43.25 Adjustment disorder with mixed disturbance of emotions and conduct (principal); F79 Unspecified intellectual disabilities; J45.909 Unspecified asthma, uncomplicated; Z23 Encounter for immunization
CPT/HCPCS: 80053; 80061; 80164; 80307; 83036; 85025; 90471; 90732; 99284; G0009

== ENCOUNTER 2016-08-22 14:12 | Emergency (ER) | payer MEDICARE, MEDICAID ==
[~2016-08-22] VITALS: Ht 170.2 cm; Wt 110.0 kg
[~2016-08-22 14:12] MED LIST changes: +ABIL2TAB2 PO; -ALBUAER3 INH; -CLOT1CRE6 TOPICAL; +CLOTCRE TOPICAL; -CLOTR1%T TOPICAL; +DIAZ5 PO; -DIAZ5TAB PO; +DICL1GEL7 TOPICAL; +DIVA250T PO; +FLUO20CA4 PO; -FLUO60TA PO; -GABA800T PO; -GUAISYP7 PO; -MAPA500T PO; +NEUR400C PO; -NORC5TAB PO; -TAMS0.4C4 PO; +TAMS5CAP PO; +TRAZ50TA12 PO
[2016-08-22 14:15] VITALS: BP 115/66; PULSE 85; RESP 15; TEMP 99; O2SAT 96
--- NOTE | 2016-08-22 14:25 | PD ---
Physical Exam Time Seen by Provider: 14:22 Narrative 45yo M c/o visual and auditory hallucinations starting today. Denies SI or HI. Hx bipolar, schizophrenia. Denies ETOH, illicit drug use. Patient seen in triage. Awaiting bed placement. VS reviewed. Data Data Last Documented VS Vital Signs Date Time Temp Pulse Resp B/P Pulse Ox O2 Delivery O2 Flow Rate FiO2 08/22/16 14:15 99.0 85 15 115/66 96 MDM Supervised Visit with MERRILL: Nara Miller August 22, 2016 14:25
--- NOTE | 2016-08-22 15:42 | PD ---
HPI Chief Complaint: Psychiatric Symptoms Time Seen by Provider: 15:25 Travel History International Travel<30 days: No Contact w/Intl Traveler<30days: No Traveled to known affect area: No History of Present Illness HPI 45-year-old male with history of schizophrenia and intellectual distantly per chart review. He presents voluntarily requesting psychiatric evaluation. He reports over the past few days he has been having worsening auditory and visual hallucinations. Specifically he says that he sometimes sees shadows that he doesn't believe her there and she was voices that he doesn't believe that there. He denies any drug or alcohol use. He has no medical complaints at this time. When asked if he has any thoughts of self-harm he says "sometimes" and he doesn't elaborate. Recently admitted psychiatrically 2 weeks ago. No other complaints. PFSH Past Medical History Asthma: Yes Blood Disorders: No Bipolar Disorder: Yes Anxiety: Yes Cancer: No (See EMR) High Cholesterol: Yes Chest Pain: Yes COPD: Yes Cerebrovascular Accident: Yes (TIA) Developmental Delay: Yes Diminished Hearing: No Endocrine: No Gastrointestinal Disorders: No Genitourinary: Yes (RETENTION) Hypertension: Yes Immune Disorder: No Implanted Vascular Access Dvce: Yes Insomnia: Yes Musculoskeletal: Yes Neurologic: Yes Psychiatric: Yes (Schizophrenia) Reproductive: No Respiratory: Yes (ASTHMA) Integumentary: Yes (DERMATITIS, PRURITIS) Migraines: Yes Schizophrenia: Yes Past Surgical History Body Medical Devices: BACK RODS AND SCREWS Other Surgery: Yes Social History Alcohol Use: No Tobacco Use: No Substance Use: No (PT DENIES) Allergies-Medications (Allergen,Severity, Reaction): Coded Allergies: Cantaloupe (Verified Allergy, Unknown, 08/10/16) Tomato (Verified Allergy, Unknown, 08/10/16) Watermelon (Verified Allergy, Unknown, 08/10/16) Reported Meds & Prescriptions Reported Meds & Active Scripts Active Trazodone (Trazodone HCl) 50 Mg Tab 100 Mg PO HALF DAILY AT BEDTIM Flomax (Tamsulosin HCl) 0.4 Mg Cap 0.4 Mg PO BID Neurontin (Gabapentin) 400 Mg Cap 400 Mg PO 2 TWICE A DAY Fluoxetine (Fluoxetine HCl) 20 Mg Cap 60 Mg PO DAILY Depakote ER (Divalproex Sodium) 500 Mg Melecio 500 Mg PO [address] DAILY AT BEDTIME D[address] (Divalproex Sodium) 250 Mg Tabdr 250 Mg PO DAILY Valium (Diazepam) 5 Mg Tab 5 Mg PO Q12HR Abilify (Aripiprazole) 2 Mg Tab 2 Mg PO DAILY Reported Coricidin Hbp Cough & Cold (Chlorpheniramine-Dm) 4-30 Mg Tab 1 Tab PO Q6H PRN Clotrimazole-Betamethasone Topical (Betamethasone/Clotrimazole) 1-0.05% Cream 1 Applic TOPICAL BID PRN Diclofenac Topical 1% Gel 1 Applic TOPICAL DAILY PRN Advair Diskus Inh (Fluticasone-Salmeterol Inh) 250-50 Mcg/Blist Aer 1 Puff INH BID Rinse mouth after use. Miralax Powder (Polyethylene Glycol 3350 Powder) 17 Gm Powd 17 Gm PO DAILY Mix and dissolve one measuring cap-ful (17 grams) in water or juice. Depakote ER (Divalproex Sodium) 250 Mg Melecio 250 Mg PO DAILY Fenofibrate 160 Mg Tab 160 Mg PO DAILY Review of Systems Except as stated in HPI: all other systems reviewed are Neg Physical Exam Narrative GENERAL: Pleasant well-developed well-nourished male in no acute distress answering questions appropriately and responding to commands properly. Vital signs reviewed. SKIN: Warm and dry. HEAD: Atraumatic. Normocephalic. EYES: Pupils equal and round. No scleral icterus. No injection or drainage. ENT: No nasal bleeding or discharge. Mucous membranes pink and moist. NECK: Trachea midline. No JVD. CARDIOVASCULAR: Regular rate and rhythm. No murmur appreciated. RESPIRATORY: No accessory muscle use. Clear to auscultation. Breath sounds equal bilaterally. GASTROINTESTINAL: Abdomen soft, non-tender, nondistended. Hepatic and splenic margins not palpable. MUSCULOSKELETAL: No obvious deformities. No clubbing. No cyanosis. No edema. NEUROLOGICAL: Awake and alert. No obvious cranial nerve deficits. Motor grossly within normal limits. Normal speech. PSYCHIATRIC: Appropriate mood and affect; insight and judgment normal. Data Data Last Documented VS Vital Signs Date Time Temp Pulse Resp B/P Pulse Ox O2 Delivery O2 Flow Rate FiO2 08/22/16 14:15 99.0 85 15 115/66 96 Orders Psych Screen (08/22/16 15:04) Drug Screen, Random Urine (08/22/16 15:25) Basic Metabolic Panel (Bmp) (08/22/16 15:31) Diet Regular Basic (08/22/16 Dinner) [facility] Medical Decision Making Medical Screen Exam Complete: Yes Emergency Medical Condition: Yes Medical Record Reviewed: Yes Differential Diagnosis Schizophrenia, medication noncompliance, acute psychosis, substance induced mood disorder, adjustment reaction, schizoaffective disorder Narrative Course 45-year-old male with history of schizophrenia and intellectual disability presents for evaluation of auditory and visual hallucinations. He has no medical complaints at this time. Reviewed his records from most recent admission 2 weeks ago, his lab work was essentially unremarkable. Mental health screening discussed with the patient. Psychiatric screen ordered. Medically cleared for psychiatric disposition. Diagnosis Primary Impression: Hallucinations Murtaza Beavers August 22, 2016 15:41
[2016-08-22] MEDS ORDERED: ARIPiprazole 2 MG TAB PO ONE (18:00)
[2016-08-22 18:16] VITALS: BP 122/66; PULSE 81; RESP 20; O2SAT 96
[2016-08-22 22:00] VITALS: BP 101/54; PULSE 53; RESP 18; TEMP 98.6; O2SAT 95
[2016-08-23 01:32] LABS: BICARBONATE 31.8 MEQ/L (21.0-32.0); POTASSIUM 3.7 MEQ/L (3.5-5.1)
[2016-08-23 02:30] LABS: AMPHETAMINE, URINE NEG (NEG); BARBITURATES, URINE NEG (NEG); COCAINE, URINE NEG (NEG)
[2016-08-23 02:32] VITALS: BP 110/71; PULSE 61; RESP 18; TEMP 98.1; O2SAT 97
[2016-08-23 06:00] VITALS: BP 153/65; PULSE 50; RESP 17; O2SAT 96
--- NOTE | 2016-08-23 08:04 | PD ---
History of Present Illness Chief Complaint: Psychiatric Symptoms Time Seen by Provider: 08:00 Travel History International Travel<30 Days: No Contact w/Intl Traveler<30days: No Known affected area: No Legal Status Legal Status: Voluntary History of Present Illness: History of Present Illness HPI 45-year-old male with history of schizophrenia and intellectual disability who presents to ED on a voluntary basis requesting psychiatric evaluation. He reports that over the past few days he has been experiencing an increase in auditory and hallucinations. Specifically he says that he is hearing voices command type that tell him to hit other people. He has not acted on such voices. yesterday he became frightened and asked a staff member to bring him to the hospital because he was not feeling safe. He denies any drug or alcohol use. When asked if he has any thoughts of self-harm he says "sometimes" and he doesn't elaborate. Recently admitted psychiatrically 2 weeks ago for similar complaints . Monitored in J pod. He was observed sitting quietly by unit tech or walking in hallway. Did not appear internally preoccupied. He was ordered Abilify last night and he slept well. This morning he is alert and oriented. Calm and states " I am better". He is not reporting any hallucinations, no suicidal or homicidal ideation, intent or plan. PFSH Past Medical History Asthma: Yes Blood Disorders: No Bipolar Disorder: Yes Anxiety: Yes Cancer: No High Cholesterol: Yes Chest Pain: Yes COPD: Yes Cerebrovascular Accident: Yes (TIA) Developmental Delay: Yes Diminished Hearing: No Endocrine: No Gastrointestinal Disorders: No Genitourinary: Yes (RETENTION) Hypertension: Yes Immune Disorder: No Implanted Vascular Access Dvce: Yes Insomnia: Yes Musculoskeletal: Yes Neurologic: Yes Psychiatric: Yes (Schizophrenia) Reproductive: No Respiratory: Yes (ASTHMA) Integumentary: Yes (DERMATITIS, PRURITIS) Migraines: Yes Schizophrenia: Yes Past Surgical History Body Medical Devices: BACK RODS AND SCREWS Other Surgery: Yes Psychiatric History Psychiatric History Hx Psychiatric Treatment: SEES A PSYCHOLOGOST TWICE A WEEK AT [facility]. HE HAS BEEN MED COMPLIANT. HX OF SCHIZOPHRENIA AND LOW INTELLECTUAL FUNCTIONING History of Inpatient Treatment: Yes Guns or firearms in home: No Social History [place] male. Completed third grade. Lives in [facility] Hx Alcohol Use: No Hx Tobacco Use: No Hx Substance Use: No (PT DENIES) Hx of Substance Use Treatment: No Family Psychiatric History Negative Allergies-Medications (Allergen,Severity, Reaction): Coded Allergies: Cantaloupe (Verified Allergy, Unknown, 08/22/16) Tomato (Verified Allergy, Unknown, 08/22/16) Watermelon (Verified Allergy, Unknown, 08/22/16) Reported Meds & Prescriptions Reported Meds & Active Scripts Active Trazodone (Trazodone HCl) 50 Mg Tab 100 Mg PO HALF DAILY AT BEDTIM Flomax (Tamsulosin HCl) 0.4 Mg Cap 0.4 Mg PO BID Neurontin (Gabapentin) 400 Mg Cap 400 Mg PO 2 TWICE A DAY Fluoxetine (Fluoxetine HCl) 20 Mg Cap 60 Mg PO DAILY Depakote ER (Divalproex Sodium) 500 Mg Melecio 500 Mg PO 2 DAILY AT BEDTIME Valium (Diazepam) 5 Mg Tab 5 Mg PO Q12HR Abilify (Aripiprazole) 2 Mg Tab 2 Mg PO DAILY Reported Coricidin Hbp Cough & Cold (Chlorpheniramine-Dm) 4-30 Mg Tab 1 Tab PO Q6H PRN Clotrimazole-Betamethasone Topical (Betamethasone/Clotrimazole) 1-0.05% Cream 1 Applic TOPICAL BID PRN Diclofenac Topical 1% Gel 1 Applic TOPICAL DAILY PRN Advair Diskus Inh (Fluticasone-Salmeterol Inh) 250-50 Mcg/Blist Aer 1 Puff INH BID Rinse mouth after use. Miralax Powder (Polyethylene Glycol 3350 Powder) 17 Gm Powd 17 Gm PO DAILY Mix and dissolve one measuring cap-ful (17 grams) in water or juice. Depakote ER (Divalproex Sodium) 250 Mg Melecio 250 Mg PO DAILY Fenofibrate 160 Mg Tab 160 Mg PO DAILY Review of Systems Except as stated in HPI: all other systems reviewed are Neg Psychiatric: COMPLAINS OF: Hallucinations Exam Alert: Yes [place]: Person (ox4) Mood: Calm Affect: Restricted Speech: Clear, Logical (Speaks with a slight slurr) Eye Contact: Normal Memory Intact: Comment (Not formally tested) Hallucinations: Auditory (He reported on admission. Appear to be a function of his anxiety and not true hallucinations. None at present) Delusions: No Suicidal: Ideation (denies any) Homicidal: Ideation (denies any) Insight/Judgement Poor. Poor MDM Medical Decision Making Medical Record Reviewed: Yes Assessment/Plan 45 year old male who presented on a voluntary basis with report of increase in hallucinatory process. At this time and while he was monitored in J pod he did not appear to be responding to internal stimuli or internally preoccupied. Increase Abilify to 2 mg po BID to help with his mood stabilization and to address any possible underlying psychotic process. [facility] to [facility]. Follow up with [facility] provider. Orders Psych Screen (08/22/16 15:04) Drug Screen, Random Urine (08/22/16 15:25) Basic Metabolic Panel (Bmp) (08/22/16 15:31) Diet Regular Basic (08/22/16 Dinner) Aripiprazole (Abilify) (08/22/16 18:00) Diet Regular Basic (08/23/16 Breakfast) Results Vital Signs Date Time Temp Pulse Resp B/P Pulse Ox O2 Delivery O2 Flow Rate FiO2 08/23/16 06:00 50 17 153/65 96 Room Air 08/23/16 02:32 98.1 61 18 110/71 97 Room Air 08/22/16 22:00 98.6 53 18 101/54 95 Room Air 08/22/16 18:16 81 20 122/66 96 Room Air 08/22/16 14:15 99.0 85 15 115/66 96 Laboratory Tests Test 08/23/16 08/23/16 01:00 02:10 Sodium Level 143 Potassium Level 3.7 Chloride Level 107 Carbon Dioxide Level 31.8 Anion Gap 4 Blood Urea Nitrogen 11 Creatinine 0.74 Estimat Glomerular Filtration 115 Rate Random Glucose 94 Calcium Level 8.5 Urine Opiates Screen NEG Urine Barbiturates Screen NEG Urine Amphetamines Screen NEG Urine Benzodiazepines Screen POS Urine Cocaine Screen NEG Urine Cannabinoids Screen NEG Diagnosis Primary Impression: Adjustment disorder with mixed disturbance of emotions and conduct Psychiatrically Cleared: Yes Med/ Other Pt Specific Info: Prescription(s) given Prescriptions Aripiprazole (Abilify)2 Mg Tab2 Mg PO BID 14 Days Ref 0 Prov:Jory Moore 08/23/16 Disposition: 01 DISCHARGE HOME Condition: Stable Moore,Jory Nicolette Jimenez [employer] August 23, 2016 08:04
[2016-08-23] MEDS ORDERED: ABIL2TAB2 PO (08:06)
== END 2016-08-23 09:44 | disposition home or self-care (01) ==
LOC: NEPJ 14:12
DX: F43.25 Adjustment disorder with mixed disturbance of emotions and conduct (principal); R44.1 Visual hallucinations; R44.0 Auditory hallucinations; J45.909 Unspecified asthma, uncomplicated; E78.00 Pure hypercholesterolemia, unspecified; Z86.73 Personal history of transient ischemic attack (TIA), and cerebral infarction without residual deficits; I10 Essential (primary) hypertension; F79 Unspecified intellectual disabilities
CPT/HCPCS: 80048; 80307; 99284

== ENCOUNTER 2016-09-20 19:37 | Emergency (ER) | payer MEDICARE, MEDICAID ==
[~2016-09-20] VITALS: Ht 170.2 cm; Wt 110.0 kg
[~2016-09-20 19:37] MED LIST changes: -DIVA250T PO
[2016-09-20 19:41] VITALS: BP 147/88; PULSE 81; RESP 16; TEMP 99; O2SAT 98
--- NOTE | 2016-09-20 21:39 | PD ---
HPI Chief Complaint: Psychiatric Symptoms Time Seen by Provider: 21:35 Travel History International Travel<30 days: No Contact w/Intl Traveler<30days: No Traveled to known affect area: No History of Present Illness HPI Patient comes in requesting psychiatric evaluation after getting kicked out of the facility where he was living. Patient reportedly after getting into an argument with one of the staff there he was told that he is not welcome back. Patient denies any medical concerns this time. Denies any chest pain, shortness breath, nausea or vomiting, abdominal pain, fevers, or suicidal or homicidal ideations. PFSH Past Medical History Asthma: Yes Blood Disorders: No Bipolar Disorder: Yes Anxiety: Yes Cancer: No High Cholesterol: Yes Chest Pain: Yes COPD: Yes Cerebrovascular Accident: Yes (TIA) Developmental Delay: Yes Diminished Hearing: No Endocrine: No Gastrointestinal Disorders: No Genitourinary: Yes (RETENTION) Hypertension: Yes Immune Disorder: No Implanted Vascular Access Dvce: Yes Insomnia: Yes Musculoskeletal: Yes Neurologic: Yes Psychiatric: Yes (Schizophrenia) Reproductive: No Respiratory: Yes (ASTHMA) Integumentary: Yes (DERMATITIS, PRURITIS) Migraines: Yes Schizophrenia: Yes Past Surgical History Body Medical Devices: BACK RODS AND SCREWS Other Surgery: Yes Social History Alcohol Use: No Tobacco Use: No Substance Use: No (PT DENIES) Allergies-Medications (Allergen,Severity, Reaction): Coded Allergies: Cantaloupe (Verified Allergy, Unknown, 08/22/16) Tomato (Verified Allergy, Unknown, 08/22/16) Watermelon (Verified Allergy, Unknown, 08/22/16) Reported Meds & Prescriptions Reported Meds & Active Scripts Active Abilify (Aripiprazole) 2 Mg Tab 2 Mg PO BID 14 Days Trazodone (Trazodone HCl) 50 Mg Tab 100 Mg PO HALF DAILY AT BEDTIM Flomax (Tamsulosin HCl) 0.4 Mg Cap 0.4 Mg PO BID Neurontin (Gabapentin) 400 Mg Cap 400 Mg PO 2 TWICE A DAY Fluoxetine (Fluoxetine HCl) 20 Mg Cap 60 Mg PO DAILY Depakote ER (Divalproex Sodium) 500 Mg Melecio 500 Mg PO 2 DAILY AT BEDTIME Valium (Diazepam) 5 Mg Tab 5 Mg PO Q12HR Abilify (Aripiprazole) 2 Mg Tab 2 Mg PO DAILY Reported Coricidin Hbp Cough & Cold (Chlorpheniramine-Dm) 4-30 Mg Tab 1 Tab PO Q6H PRN Clotrimazole-Betamethasone Topical (Betamethasone/Clotrimazole) 1-0.05% Cream 1 Applic TOPICAL BID PRN Diclofenac Topical 1% Gel 1 Applic TOPICAL DAILY PRN Advair Diskus Inh (Fluticasone-Salmeterol Inh) 250-50 Mcg/Blist Aer 1 Puff INH BID Rinse mouth after use. Miralax Powder (Polyethylene Glycol 3350 Powder) 17 Gm Powd 17 Gm PO DAILY Mix and dissolve one measuring cap-ful (17 grams) in water or juice. Depakote ER (Divalproex Sodium) 250 Mg Melecio 250 Mg PO DAILY Fenofibrate 160 Mg Tab 160 Mg PO DAILY Review of Systems Except as stated in HPI: all other systems reviewed are Neg Physical Exam Narrative GENERAL: Well-developed, overly nourished, in no acute distress, and non-ill appearing. SKIN: Focused skin assessment warm and dry. HEAD: Atraumatic. Normocephalic. EYES: Pupils equal and round. EOMI. No scleral icterus. No injection or drainage. ENT: No nasal bleeding or discharge. Mucous membranes pink and moist. NECK: Trachea midline. Supple. No nuclear rigidity. CARDIOVASCULAR: Regular rate and rhythm. No murmur appreciated. RESPIRATORY: No accessory muscle use. No respiratory distress. Clear to auscultation. Breath sounds equal bilaterally. MUSCULOSKELETAL: No obvious deformities. No clubbing. No cyanosis. No edema. Full range of motion. NEUROLOGICAL: Awake and alert. No obvious cranial nerve deficits. Motor grossly within normal limits. Normal speech. PSYCHIATRIC: Appropriate mood and affect; insight and judgment normal. Data Data Last Documented VS Vital Signs Date Time Temp Pulse Resp B/P Pulse Ox O2 Delivery O2 Flow Rate FiO2 09/20/16 19:41 99.0 81 16 147/88 98 Room Air Orders Psych Screen (09/20/16 21:13) MDM Medical Decision Making Medical Screen Exam Complete: Yes Emergency Medical Condition: Yes Differential Diagnosis Homicidal, suicidal, bipolar, schizophrenia, other Narrative Course Patient was seen and examined. Labs were reviewed from 6 weeks ago was seen no need for additional testing at this time. Patient appears to just need to be assisted in finding new placement. Patient medically cleared for further treatment and evaluation by psych. Final disposition per psych. Diagnosis Primary Impression: Medical clearance for psychiatric admission Condition: Stable Dg Pickens Sep 20, 2016 21:39
[2016-09-20 22:37] VITALS: BP 123/58; PULSE 69; RESP 18; TEMP 97.6; O2SAT 98
[2016-09-21 02:34] VITALS: BP 101/58; PULSE 74; RESP 18; O2SAT 96
[2016-09-21 06:34] VITALS: BP 122/75; PULSE 54; RESP 18; O2SAT 97
[2016-09-21] MEDS ORDERED: DEPA500T3 PO ×2 (09:05→12:16)
[2016-09-21] MEDS ORDERED: FLUO60TA PO ×2 (09:07→12:16)
[2016-09-21] MEDS ORDERED: POLY17S PO (09:32)
[2016-09-21] MEDS ORDERED: MIRA3350 PO (09:33)
[2016-09-21] MEDS ORDERED: TRAZ50TA12 PO ×2 (09:34→12:16)
[2016-09-21] MEDS ORDERED: ARIP1TAB16 PO ×2 (09:47→12:16)
[2016-09-21] MEDS ORDERED: HYDR-3516 PO (09:51)
[2016-09-21] MEDS ORDERED: ARTH650T6 PO (09:52)
[2016-09-21] MEDS ORDERED: ALBUAER3 INH (09:53)
[2016-09-21 10:00] VITALS: BP 120/68; PULSE 76; RESP 18
[2016-09-21] MEDS ORDERED: DEXT5LIQ12 PO (10:00)
[2016-09-21] MEDS ORDERED: LOTR15T TOPICAL (10:02)
[2016-09-21] MEDS ORDERED: DIAZ5TAB PO ×2 (10:03→12:16)
[2016-09-21] MEDS ORDERED: GABA800T PO ×2 (10:04→12:16)
[2016-09-21] MEDS ORDERED: TAMS0.4C4 PO (10:06)
--- NOTE | 2016-09-21 12:08 | PD ---
History of Present Illness Chief Complaint: Psychiatric Symptoms Time Seen by Provider: 12:00 Travel History International Travel<30 Days: No Contact w/Intl Traveler<30days: No Known affected area: No Legal Status Legal Status: Voluntary History of Present Illness: 45-year-old male well known to this physician. Came in voluntarily. Apparently got in an argument with Ashley, the lead care manager of his [facility]. Was reportedly told he could not return. Therefore presents himself to this emergency department complaining of auditory hallucinations. Patient known by this physician to be very manipulative. He is showing no signs of responding to internal stimuli. In fact he is carrying on conversations with multiple patients in J pod. This physician feels it is counter therapeutic to admit him based on his manipulative behavior. He will be prescribed his medicines in case he can't get them from his [facility]. However, he has paid for his usp through September and this physician has asked the nurse to call the group cio patient is not suicidal or homicidal and shows no objective evidence of psychosis. He has reportedly been compliant with his medicines. PFSH Past Medical History Asthma: Yes Blood Disorders: No Bipolar Disorder: Yes Anxiety: Yes Cancer: No High Cholesterol: Yes Chest Pain: Yes COPD: Yes Cerebrovascular Accident: Yes (TIA) Developmental Delay: Yes Diminished Hearing: No Endocrine: No Gastrointestinal Disorders: No Genitourinary: Yes (RETENTION) Hypertension: Yes Immune Disorder: No Implanted Vascular Access Dvce: Yes Insomnia: Yes Musculoskeletal: Yes Neurologic: Yes Psychiatric: Yes (Schizophrenia) Reproductive: No Respiratory: Yes (ASTHMA) Integumentary: Yes (DERMATITIS, PRURITIS) Migraines: Yes Schizophrenia: Yes Past Surgical History Body Medical Devices: BACK RODS AND SCREWS Other Surgery: Yes Psychiatric History Psychiatric History Hx Psychiatric Treatment: SEES A PSYCHOLOGOST TWICE A WEEK AT [facility]. HE HAS BEEN MED COMPLIANT. HX OF SCHIZOPHRENIA AND LOW INTELLECTUAL FUNCTIONING. Does not appear to demonstrate significant objective evidence of schizophrenia. Appears to have impaired intellectual function. Last diagnosis by this physician was adjustment disorder. History of Inpatient Treatment: Yes Guns or firearms in home: No Social History Hx Alcohol Use: No Hx Tobacco Use: No Hx Substance Use: No (PT DENIES) Hx of Substance Use Treatment: No Allergies-Medications (Allergen,Severity, Reaction): Coded Allergies: Cantaloupe (Verified Allergy, Unknown, 09/21/16) Per MAR sent by facility. Tomato (Verified Allergy, Unknown, 09/21/16) Per MAR sent by facility. Watermelon (Verified Allergy, Unknown, 09/21/16) Per MAR sent by facility. Reported Meds & Prescriptions Reported Meds & Active Scripts Active Reported Tamsulosin (Tamsulosin HCl) 0.4 Mg Cap 0.4 Mg PO BID (0800,1600) Gabapentin 800 Mg Tab 800 Mg PO BID (0800,1600) Diazepam 5 Mg Tab 5 Mg PO BID Lotrisone Topical (Betamethasone/Clotrimazole) 1-0.05% Cream 1 Applic TOPICAL BID (0800,1600) Tussin Dm Max Adult Liq (Dextromethorphan-Guaifenesin Liq) 10-200 Mg/5 Ml Liq 5 Ml PO Q6HR PRN Proair Hfa 8.5 GM Inh (Albuterol Sulfate) 90 Mcg/Act Aer 2 Puff INH Q4-6H PRN 108 mcg/actuation Arthritis Pain Reliever ER 8 HR (Acetaminophen) 650 Mg Tab 500 Mg PO Q8HR PRN Hydrocodone-Acetaminophen 5-325 mg Tab 1 Tab PO Q8HR PRN Aripiprazole 2 Mg Tab 2 Mg PO BID (0800,1600) Trazodone (Trazodone HCl) 50 Mg Tab 50 Mg PO HS Miralax Powder (Polyethylene Glycol 3350 Powder) 17 Gm Powd 17 Gm PO DAILY Mix and dissolve one measuring cap-ful (17 grams) in water or juice. Fluoxetine (Fluoxetine HCl) 60 Mg Tab 60 Mg PO DAILY Depakote ER (Divalproex Sodium) 500 Mg Melecio 1,000 Mg PO HS Coricidin Hbp Cough & Cold (Chlorpheniramine-Dm) 4-30 Mg Tab 1 Tab PO Q6H PRN Clotrimazole-Betamethasone Topical (Betamethasone/Clotrimazole) 1-0.05% Cream 1 Applic TOPICAL BID PRN Diclofenac Topical 1% Gel 1 Applic TOPICAL DAILY PRN Advair Diskus Inh (Fluticasone-Salmeterol Inh) 250-50 Mcg/Blist Aer 1 Puff INH BID (0800,1600) Rinse mouth after use. Depakote ER (Divalproex Sodium) 250 Mg Melecio 250 Mg PO DAILY Fenofibrate 160 Mg Tab 160 Mg PO DAILY Review of Systems Except as stated in HPI: all other systems reviewed are Neg Exam Alert: Yes [place]: Person, Place, Date, Situation Mood: Calm Affect: Appropriate Speech: Clear, Logical Eye Contact: Normal Memory Intact: Immediate, Recent, Remote Insight/Judgement Adequate [facility] Medical Decision Making Medical Record Reviewed: Yes Assessment/Plan Despite this 45-year-old males complain of auditory hallucinations and previous diagnosis of schizophrenia, this physician does not find any significant clinical objective evidence of schizophrenia at this time. It does appear the patient has limited intellectual function. However he is able to navigate "the system" to get himself cared for. Hence, after today's argument with the group cio, he presented himself here with reports of auditory hallucinations. There is no actual significant objective evidence of auditory hallucinations and as mentioned earlier, the patient is socializing frequently and repeatedly with other patients in [facility]. This physician did not change the patient's medications per his request and did provide refills. However patient is not suicidal or homicidal. It would be counter therapeutic to admit him. There is still a risk of him acting out to harm himself in order to get admitted. However that is a risk this physician feels we must assume. Orders Psych Screen (09/20/16 21:13) Diet Regular Basic (09/21/16 Breakfast) Diet Regular Basic (09/21/16 Lunch) Results Vital Signs Date Time Temp Pulse Resp B/P Pulse Ox O2 Delivery O2 Flow Rate FiO2 09/21/16 10:00 76 18 120/68 Room Air 09/21/16 06:34 54 18 122/75 97 09/21/16 02:34 74 18 101/58 96 09/20/16 22:37 97.6 69 18 123/58 98 Room Air 09/20/16 19:41 99.0 81 16 147/88 98 Room Air Diagnosis Primary Impression: Adjustment disorder with mixed disturbance of emotions and conduct Prescriptions Gabapentin 800 Mg [id number] Mg PO BID (0800,1600) #60 TAB Ref 0 Prov:Yanick Escobar MD 09/21/16 Diazepam 5 Mg Tab5 Mg PO BID #60 TAB Ref 0 Prov:Yanick Escobar MD 09/21/16 Aripiprazole 2 Mg Tab2 Mg PO BID (0800,1600) #60 TAB Ref 0 Prov:Yanick Escobar MD 09/21/16 Trazodone 50 Mg Tab50 Mg PO HS #30 TAB Ref 0 Prov:Yanick Escobar MD 09/21/16 Fluoxetine 60 Mg Tab20 Mg PO 3 times a day #90 TAB Ref 0 Prov:Yanick Escobar MD 09/21/16 Divalproex ER (Depakote ER)500 Mg [id number] Mg PO BID #60 TAB Ref 0 Prov:Yanick Escobar MD 09/21/16 Divalproex ER (Depakote ER)250 Mg [id number] Mg PO DAILY #30 TAB Ref 0 Prov:Yanick Escobar MD 09/21/16 Condition: Stable Yanick Escobar MD Sep 21, 2016 12:08
[2016-09-21] MEDS ORDERED: DIVA250ER PO (12:16)
== END 2016-09-21 13:10 | disposition home or self-care (01) ==
LOC: NEPJ 19:37
DX: F43.25 Adjustment disorder with mixed disturbance of emotions and conduct (principal); J45.909 Unspecified asthma, uncomplicated; E78.00 Pure hypercholesterolemia, unspecified; J44.9 Chronic obstructive pulmonary disease, unspecified; I10 Essential (primary) hypertension; Z86.73 Personal history of transient ischemic attack (TIA), and cerebral infarction without residual deficits
CPT/HCPCS: 99284

== ENCOUNTER 2016-09-25 23:05 | Emergency (ER) | payer MEDICARE, MEDICAID ==
[~2016-09-25] VITALS: Ht 175.3 cm; Wt 88.0 kg
[~2016-09-25 23:05] MED LIST changes: -ABIL2TAB2 PO; +ALBUAER3 INH; +ARIP1TAB16 PO; +ARTH650T6 PO; +DEXT5LIQ12 PO; -DIAZ5 PO; +DIAZ5TAB PO; -FLUO20CA4 PO; +FLUO60TA PO; +GABA800T PO; +HYDR-3516 PO; +LOTR15T TOPICAL; +MIRA3350 PO; -MIRA33504 PO; -NEUR400C PO; +TAMS0.4C4 PO; -TAMS5CAP PO
[2016-09-25 23:07] VITALS: BP 124/70; PULSE 72; RESP 16; TEMP 98.8; O2SAT 97
--- NOTE | 2016-09-25 23:36 | PD ---
HPI Chief Complaint: Psychiatric Symptoms Time Seen by Provider: 23:36 Travel History International Travel<30 days: No Contact w/Intl Traveler<30days: No Traveled to known affect area: No History of Present Illness HPI 45-year-old male with history of psychiatric disorder [facility] because he's been hearing voices that are telling him to kill himself. Patient told me he wanted to and just get it over with. He came here voluntarily. has been here multiple times in the past for the same reason. In fact he was in the emergency room 5 days ago and was seen by psych. He is doing any drugs or alcohol. He was completely sober and answering questions appropriately. Vital signs were stable. [facility] Past Medical History Narrative Medical List of his past medical, surgical, social and family history as reviewed from the nursing note. Asthma: Yes Blood Disorders: No Bipolar Disorder: Yes Anxiety: Yes Cancer: No High Cholesterol: Yes Chest Pain: Yes COPD: Yes Cerebrovascular Accident: Yes (TIA) Developmental Delay: Yes Diminished Hearing: No Endocrine: No Gastrointestinal Disorders: No Genitourinary: Yes (RETENTION) Hypertension: Yes Immune Disorder: No Implanted Vascular Access Dvce: Yes Insomnia: Yes Musculoskeletal: Yes Neurologic: Yes Psychiatric: Yes (Schizophrenia) Reproductive: No Respiratory: Yes (ASTHMA) Integumentary: Yes (DERMATITIS, PRURITIS) Migraines: Yes Schizophrenia: Yes Past Surgical History Body Medical Devices: BACK RODS AND SCREWS Other Surgery: Yes Social History Alcohol Use: No Tobacco Use: No Substance Use: No (PT DENIES) Allergies-Medications (Allergen,Severity, Reaction): Coded Allergies: Cantaloupe (Verified Allergy, Unknown, 09/26/16) Per MAR sent by facility. Tomato (Verified Allergy, Unknown, 09/26/16) Per MAR sent by facility. Watermelon (Verified Allergy, Unknown, 09/26/16) Per MAR sent by facility. Comments List of his allergies reviewed from the nursing note. Reported Meds & Prescriptions Reported Meds & Active Scripts Active Gabapentin 800 Mg Tab 800 Mg PO BID (0800,1600) Diazepam 5 Mg Tab 5 Mg PO BID Aripiprazole 2 Mg Tab 2 Mg PO BID (0800,1600) Trazodone (Trazodone HCl) 50 Mg Tab 50 Mg PO HS Fluoxetine (Fluoxetine HCl) 60 Mg Tab 20 Mg PO 3 TIMES A DAY Depakote ER (Divalproex Sodium) 500 Mg Melecio 500 Mg PO BID Depakote ER (Divalproex Sodium) 250 Mg Melecio 250 Mg PO DAILY Reported Tamsulosin (Tamsulosin HCl) 0.4 Mg Cap 0.4 Mg PO BID (0800,1600) Lotrisone Topical (Betamethasone/Clotrimazole) 1-0.05% Cream 1 Applic TOPICAL BID (0800,1600) Tussin Dm Max Adult Liq (Dextromethorphan-Guaifenesin Liq) 10-200 Mg/5 Ml Liq 5 Ml PO Q6HR PRN Proair Hfa 8.5 GM Inh (Albuterol Sulfate) 90 Mcg/Act Aer 2 Puff INH Q4-6H PRN 108 mcg/actuation Arthritis Pain Reliever ER 8 HR (Acetaminophen) 650 Mg Tab 500 Mg PO Q8HR PRN Hydrocodone-Acetaminophen 5-325 mg Tab 1 Tab PO Q8HR PRN Miralax Powder (Polyethylene Glycol 3350 Powder) 17 Gm Powd 17 Gm PO DAILY Mix and dissolve one measuring cap-ful (17 grams) in water or juice. Coricidin Hbp Cough & Cold (Chlorpheniramine-Dm) 4-30 Mg Tab 1 Tab PO Q6H PRN Clotrimazole-Betamethasone Topical (Betamethasone/Clotrimazole) 1-0.05% Cream 1 Applic TOPICAL BID PRN Diclofenac Topical 1% Gel 1 Applic TOPICAL DAILY PRN Advair Diskus Inh (Fluticasone-Salmeterol Inh) 250-50 Mcg/Blist Aer 1 Puff INH BID (0800,1600) Rinse mouth after use. Fenofibrate 160 Mg Tab 160 Mg PO DAILY Narrative Medication List of his home medications reviewed from the nursing note. Review of Systems Except as stated in HPI: all other systems reviewed are Neg Physical Exam Narrative GENERAL: Awake, alert, monotonous speech, no obvious distress SKIN: Focused skin assessment warm/dry. HEAD: Atraumatic. Normocephalic. EYES: Pupils equal and round. No scleral icterus. No injection or drainage. ENT: No nasal bleeding or discharge. Mucous membranes pink and moist. NECK: Trachea midline. No JVD. CARDIOVASCULAR: Regular rate and rhythm. No murmur appreciated. RESPIRATORY: No accessory muscle use. Clear to auscultation. Breath sounds equal bilaterally. GASTROINTESTINAL: Abdomen soft, non-tender, nondistended. Hepatic and splenic margins not palpable. MUSCULOSKELETAL: No obvious deformities. No clubbing. No cyanosis. No edema. NEUROLOGICAL: Awake and alert. No obvious cranial nerve deficits. Motor grossly within normal limits. Normal speech. PSYCHIATRIC: Appropriate mood and affect; insight and judgment normal. Data Data Last Documented VS Orders Psych Screen (09/25/16 23:43) Diet Regular Basic (09/26/16 Breakfast) Patient Own Medication (09/26/16 12:00) MDM Medical Decision Making Medical Screen Exam Complete: Yes Emergency Medical Condition: Yes Medical Record Reviewed: Yes Differential Diagnosis Schizophrenia, auditory hallucination, suicidal ideation Narrative Course 11:47 PM patient has had multiple blood work and drug screen in the past. They have all been within normal limit. I have medically cleared him based on my clinical exam. I've ordered a psych screen and I'm going to fill the [place] act paper work so that he can be in the emergency room even against his wishes so that Psych can see him in the morning. Procedures EKG Prior to Arrival: No Bandar Easley MD Sep 25, 2016 23:36 that Psych can see him in the morning. Procedures EKG Prior to Arrival: No Bandar Easley MD Sep 25, 2016 23:36
[2016-09-26 01:23] VITALS: BP 120/66; PULSE 70; RESP 14; O2SAT 98
[2016-09-26 04:27] VITALS: BP 128/68; PULSE 74; RESP 14; O2SAT 99
[2016-09-26 06:30] VITALS: BP 132/70; PULSE 76; RESP 14; O2SAT 99
[2016-09-26 09:00] VITALS: BP 99/52; PULSE 60; RESP 18; O2SAT 98
--- NOTE | 2016-09-26 11:37 | PD ---
History of Present Illness Chief Complaint: Psychiatric Symptoms Time Seen by Provider: 11:30 Travel History International Travel<30 Days: No Contact w/Intl Traveler<30days: No Known affected area: No Legal Status Legal Status: Freedman Act Fre[place] Act Signed By: JOSÉ PHELPS MD [facility] Freedman Act Comment: 09/25/2016 11:50 PM History of Present Illness: 45 yo well known to this MD. Reports Aud croft and suicidality. Rec Abilify Maintena and will re evaluate. Patient has previous diagnoses of schizophrenia and adjustment disorder. He is living in a fdc and is not happy about his circumstances. He does not have a plan to kill himself although he has intermittently reported suicidal ideation. This physician recommended Abilify maintain a 2 provide him with an increased blood level throughout the month. He will stay on his oral Abilify for now. If he does not feel better tomorrow, he contracts to come back to this facility for this physician to admit him. However, at this time his cognition is intact and he is competent to make this contract despite his reported auditory hallucinations and suicidal ideation. PFSH Past Medical History Asthma: Yes Blood Disorders: No Bipolar Disorder: Yes Anxiety: Yes Cancer: No High Cholesterol: Yes Chest Pain: Yes COPD: Yes Cerebrovascular Accident: Yes (TIA) Developmental Delay: Yes Diminished Hearing: No Endocrine: No Gastrointestinal Disorders: No Genitourinary: Yes (RETENTION) Hypertension: Yes Immune Disorder: No Implanted Vascular Access Dvce: Yes Insomnia: Yes Musculoskeletal: Yes Neurologic: Yes Psychiatric: Yes (Schizophrenia) Reproductive: No Respiratory: Yes (ASTHMA) Integumentary: Yes (DERMATITIS, PRURITIS) Migraines: Yes Schizophrenia: Yes Past Surgical History Body Medical Devices: BACK RODS AND SCREWS Other Surgery: Yes Psychiatric History Psychiatric History Hx Psychiatric Treatment: SEES A PSYCHOLOGOST TWICE A WEEK AT [facility]. HE HAS BEEN MED COMPLIANT. HX OF SCHIZOPHRENIA AND LOW INTELLECTUAL FUNCTIONING. Does not appear to demonstrate significant objective evidence of schizophrenia. Appears to have impaired intellectual function. Last diagnosis by this physician was Adjustment Disorder. adjustment disorder. History of Inpatient Treatment: Yes Guns or firearms in home: No Social History Hx Alcohol Use: No Hx Tobacco Use: No Hx Substance Use: No (PT DENIES) Hx of Substance Use Treatment: No Allergies-Medications (Allergen,Severity, Reaction): Coded Allergies: Cantaloupe (Verified Allergy, Unknown, 09/25/16) Per MAR sent by facility. Tomato (Verified Allergy, Unknown, 09/25/16) Per MAR sent by facility. Watermelon (Verified Allergy, Unknown, 09/25/16) Per MAR sent by facility. Reported Meds & Prescriptions Reported Meds & Active Scripts Active Gabapentin 800 Mg Tab 800 Mg PO BID (0800,1600) Diazepam 5 Mg Tab 5 Mg PO BID Aripiprazole 2 Mg Tab 2 Mg PO BID (0800,1600) Trazodone (Trazodone HCl) 50 Mg Tab 50 Mg PO HS Depakote ER (Divalproex Sodium) 500 Mg Melecio 500 Mg PO BID Depakote ER (Divalproex Sodium) 250 Mg Melecio 250 Mg PO DAILY Reported Tamsulosin (Tamsulosin HCl) 0.4 Mg Cap 0.4 Mg PO BID (0800,1600) Lotrisone Topical (Betamethasone/Clotrimazole) 1-0.05% Cream 1 Applic TOPICAL BID (0800,1600) Tussin Dm Max Adult Liq (Dextromethorphan-Guaifenesin Liq) 10-200 Mg/5 Ml Liq 5 Ml PO Q6HR PRN Proair Hfa 8.5 GM Inh (Albuterol Sulfate) 90 Mcg/Act Aer 2 Puff INH Q4-6H PRN 108 mcg/actuation Arthritis Pain Reliever ER 8 HR (Acetaminophen) 650 Mg Tab 500 Mg PO Q8HR PRN Hydrocodone-Acetaminophen 5-325 mg Tab 1 Tab PO Q8HR PRN Miralax Powder (Polyethylene Glycol 3350 Powder) 17 Gm Powd 17 Gm PO DAILY Mix and dissolve one measuring cap-ful (17 grams) in water or juice. Coricidin Hbp Cough & Cold (Chlorpheniramine-Dm) 4-30 Mg Tab 1 Tab PO Q6H PRN Clotrimazole-Betamethasone Topical (Betamethasone/Clotrimazole) 1-0.05% Cream 1 Applic TOPICAL BID PRN Diclofenac Topical 1% Gel 1 Applic TOPICAL DAILY PRN Advair Diskus Inh (Fluticasone-Salmeterol Inh) 250-50 Mcg/Blist Aer 1 Puff INH BID (0800,1600) Rinse mouth after use. Fenofibrate 160 Mg Tab 160 Mg PO DAILY Review of Systems Except as stated in HPI: all other systems reviewed are Neg Exam Alert: Yes [place]: Person, Place, Date, Situation Mood: Calm Affect: Appropriate Speech: Clear Eye Contact: Normal Memory Intact: Immediate, Recent, Remote Hallucinations: Auditory Suicidal: Ideation Insight/Judgement Adequate [facility] Medical Decision Making Medical Record Reviewed: Yes Assessment/Plan This is a 45-year-old male who is well known to this physician. The patient has previous diagnoses of schizophrenia, adjustment disorder and a history of low intellectual function. He is currently complaining of auditory hallucinations and suicidal ideation. This physician ordered the administration of Abilify maintained 10, a long-acting injectable medication to go with the patient's current oral Abilify. Despite the risks of the patient harming himself, this physician has a good rapport with Mr. connolly and Mr. connolly contracted for safety for the next 24 hours. If he continues to feel suicidal, he is agreeing to come back to this emergency department, where this physician will admit him. Orders Psych Screen (09/25/16 23:43) Diet Regular Basic (09/26/16 Breakfast) Results Vital Signs Date Time Temp Pulse Resp B/P Pulse Ox O2 Delivery O2 Flow Rate FiO2 09/26/16 09:00 60 18 99/52 98 Room Air 09/26/16 06:30 76 14 132/70 99 Room Air 09/26/16 04:27 74 14 128/68 99 Room Air 09/26/16 01:23 70 14 120/66 98 Room Air 09/25/16 23:07 98.8 72 16 124/70 97 Room Air Diagnosis Primary Impression: Chronic paranoid schizophrenia Additional Impression: Adjustment disorder with mixed disturbance of emotions and conduct Problem Qualifiers Yanick Escobar MD Sep 26, 2016 11:37
[2016-09-26] MEDS ORDERED: ABILIFY MAINTENA 400MG IM ONE (12:00)
[2016-09-26 13:56] VITALS: BP 122/63
== END 2016-09-26 13:58 | disposition home or self-care (01) ==
LOC: NEPD 23:05
DX: F20.0 Paranoid schizophrenia (principal); F43.25 Adjustment disorder with mixed disturbance of emotions and conduct; R44.0 Auditory hallucinations; R45.851 Suicidal ideations; F31.9 Bipolar disorder, unspecified; I10 Essential (primary) hypertension; F20.9 Schizophrenia, unspecified; J45.909 Unspecified asthma, uncomplicated; F41.9 Anxiety disorder, unspecified
CPT/HCPCS: 96372

== ENCOUNTER 2016-09-26 15:52 | Inpatient (IN) | payer MEDICARE, MEDICAID ==
[~2016-09-26] VITALS: Ht 162.6 cm; Wt 102.6 kg
[2016-09-26 15:58] VITALS: BP 132/67; PULSE 73; RESP 16; TEMP 98.4; O2SAT 98
--- NOTE | 2016-09-26 19:35 | PD ---
HPI . auditory hallucination Chief Complaint: Psychiatric Symptoms Time Seen by Provider: 19:35 Travel History International Travel<30 days: No Contact w/Intl Traveler<30days: No Traveled to known affect area: No History of Present Illness HPI 45-year-old male here with complaints of auditory hallucination. 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 He tells me he does not want to act on these thoughts and that's why he is here in the emergency department. Of note he was just here yesterday and released less than 12 hours ago. He denies any suicidal ideation. He has no other complaints. PFSH Past Medical History Asthma: Yes Blood Disorders: No Bipolar Disorder: Yes Anxiety: Yes Cancer: No High Cholesterol: Yes Chest Pain: Yes COPD: Yes Cerebrovascular Accident: Yes (TIA) Developmental Delay: Yes Diminished Hearing: No Endocrine: No Gastrointestinal Disorders: No Genitourinary: Yes (RETENTION) Hypertension: Yes Immune Disorder: No Implanted Vascular Access Dvce: Yes Insomnia: Yes Musculoskeletal: Yes Neurologic: Yes Psychiatric: Yes (Schizophrenia) Reproductive: No Respiratory: Yes (ASTHMA) Integumentary: Yes (DERMATITIS, PRURITIS) Migraines: Yes Schizophrenia: Yes Past Surgical History Body Medical Devices: BACK RODS AND SCREWS Other Surgery: Yes Social History Alcohol Use: No Tobacco Use: No Substance Use: No (PT DENIES) Allergies-Medications (Allergen,Severity, Reaction): Coded Allergies: Cantaloupe (Verified Allergy, Unknown, 09/26/16) Per MAR sent by facility. Tomato (Verified Allergy, Unknown, 09/26/16) Per MAR sent by facility. Watermelon (Verified Allergy, Unknown, 09/26/16) Per MAR sent by facility. Reported Meds & Prescriptions Reported Meds & Active Scripts Active Gabapentin 800 Mg Tab 800 Mg PO BID (0800,1600) Diazepam 5 Mg Tab 5 Mg PO BID Aripiprazole 2 Mg Tab 2 Mg PO BID (0800,1600) Trazodone (Trazodone HCl) 50 Mg Tab 50 Mg PO HS Depakote ER (Divalproex Sodium) 500 Mg Melecio 500 Mg PO BID Depakote ER (Divalproex Sodium) 250 Mg Melecio 250 Mg PO DAILY Reported Tamsulosin (Tamsulosin HCl) 0.4 Mg Cap 0.4 Mg PO BID (0800,1600) Lotrisone Topical (Betamethasone/Clotrimazole) 1-0.05% Cream 1 Applic TOPICAL BID (0800,1600) Tussin Dm Max Adult Liq (Dextromethorphan-Guaifenesin Liq) 10-200 Mg/5 Ml Liq 5 Ml PO Q6HR PRN Proair Hfa 8.5 GM Inh (Albuterol Sulfate) 90 Mcg/Act Aer 2 Puff INH Q4-6H PRN 108 mcg/actuation Arthritis Pain Reliever ER 8 HR (Acetaminophen) 650 Mg Tab 500 Mg PO Q8HR PRN Hydrocodone-Acetaminophen 5-325 mg Tab 1 Tab PO Q8HR PRN Miralax Powder (Polyethylene Glycol 3350 Powder) 17 Gm Powd 17 Gm PO DAILY Mix and dissolve one measuring cap-ful (17 grams) in water or juice. Coricidin Hbp Cough & Cold (Chlorpheniramine-Dm) 4-30 Mg Tab 1 Tab PO Q6H PRN Clotrimazole-Betamethasone Topical (Betamethasone/Clotrimazole) 1-0.05% Cream 1 Applic TOPICAL BID PRN Diclofenac Topical 1% Gel 1 Applic TOPICAL DAILY PRN Advair Diskus Inh (Fluticasone-Salmeterol Inh) 250-50 Mcg/Blist Aer 1 Puff INH BID (0800,1600) Rinse mouth after use. Fenofibrate 160 Mg Tab 160 Mg PO DAILY Review of Systems General / Constitutional: No: Fever Eyes: No: Visual changes HENT: No: Headaches Cardiovascular: No: Chest Pain or Discomfort Respiratory: No: Shortness of Breath Gastrointestinal: No: Abdominal Pain Genitourinary: No: Dysuria Musculoskeletal: No: Pain Skin: No Rash Neurologic: No: Weakness Psychiatric: Positive: Homicidal Ideation, No: Depression Endocrine: No: Polydipsia Hematologic/Lymphatic: No: Easy Bruising Physical Exam Narrative GENERAL: no acute distress, Well-nourished, well-developed patient. cooperative SKIN: Warm and dry. No visible rashes or bruising. HEAD: Normocephalic and atraumatic. EYES: No scleral icterus. No injection or drainage. EOM intact, PERRLA ENT: No nasal drainage noted. Mucous membranes pink. Airway patent. NECK: Supple, trachea midline. No JVD. no lymphadenopathy CARDIOVASCULAR: Regular rate and rhythm without murmurs, gallops, or rubs. RESPIRATORY: Breath sounds equal bilaterally. No accessory muscle use. No rhonchi or rales. GASTROINTESTINAL: Abdomen soft, non-tender, nondistended. EXTREMITIES: No cyanosis or edema. BACK: Nontender without obvious deformity. No CVA tenderness. NEURO: CN II-12 intact, boathouse keeper strength normal b/l, UE and LE 5/5, no focal deficits PSYCH: flat, anxious affect Data Data Last Documented VS Vital Signs Date Time Temp Pulse Resp B/P Pulse Ox O2 Delivery O2 Flow Rate FiO2 09/26/16 15:58 98.4 73 16 132/67 98 Orders Complete Blood Count With Diff (09/26/16 19:59) Comprehensive Metabolic Panel (09/26/16 19:59) Psych Screen (09/26/16 19:59) Drug Screen, Random Urine (09/26/16 19:59) Alcohol (Ethanol) (09/26/16 19:59) Salicylates (Aspirin) (09/26/16 19:59) Tylenol (Acetaminophen) (09/26/16 19:59) Labs Laboratory Tests Test 09/26/16 20:02 White Blood Count 5.5 TH/MM3 Red Blood Count 4.48 MIL/MM3 Hemoglobin 13.2 GM/DL Hematocrit 39.8 % Mean Corpuscular Volume 88.7 FL Mean Corpuscular Hemoglobin 29.4 PG Mean Corpuscular Hemoglobin 33.2 % Concent Red Cell Distribution Width 13.3 % Platelet Count 186 TH/MM3 Mean Platelet Volume 10.0 FL Neutrophils (%) (Auto) 52.2 % Lymphocytes (%) (Auto) 33.8 % Monocytes (%) (Auto) 11.3 % Eosinophils (%) (Auto) 2.4 % Basophils (%) (Auto) 0.3 % Neutrophils # (Auto) 2.9 TH/MM3 Lymphocytes # (Auto) 1.9 TH/MM3 Monocytes # (Auto) 0.6 TH/MM3 Eosinophils # (Auto) 0.1 TH/MM3 Basophils # (Auto) 0.0 TH/MM3 CBC Comment DIFF FINAL Differential Comment Sodium Level 142 MEQ/L Potassium Level 4.0 MEQ/L Chloride Level 106 MEQ/L Carbon Dioxide Level 27.9 MEQ/L Anion Gap 8 MEQ/L Blood Urea Nitrogen 17 MG/DL Creatinine 0.93 MG/DL Estimat Glomerular Filtration 88 ML/MIN Rate Random Glucose 81 MG/DL Calcium Level 8.9 MG/DL Total Bilirubin 0.3 MG/DL Aspartate Amino Transf 19 U/L (AST/SGOT) Alanine Aminotransferase 19 U/L (ALT/SGPT) Alkaline Phosphatase 30 U/L Total Protein 6.9 GM/DL Albumin 3.6 GM/DL Salicylates Level LESS THAN 1.7 MG/DL Acetaminophen Level LESS THAN 2.0 MCG/ML Ethyl Alcohol Level LESS THAN 3 MG/DL MDM Medical Decision Making Medical Screen Exam Complete: Yes Emergency Medical Condition: Yes Medical Record Reviewed: Yes Differential Diagnosis Schizophrenia, bipolar disorder, drug-induced mood disorder, Narrative Course Laboratory Tests Test 09/26/16 20:02 White Blood Count 5.5 TH/MM3 Red Blood Count 4.48 MIL/MM3 Hemoglobin 13.2 GM/DL Hematocrit 39.8 % Mean Corpuscular Volume 88.7 FL Mean Corpuscular Hemoglobin 29.4 PG Mean Corpuscular Hemoglobin 33.2 % Concent Red Cell Distribution Width 13.3 % Platelet Count 186 TH/MM3 Mean Platelet Volume 10.0 FL Neutrophils (%) (Auto) 52.2 % Lymphocytes (%) (Auto) 33.8 % Monocytes (%) (Auto) 11.3 % Eosinophils (%) (Auto) 2.4 % Basophils (%) (Auto) 0.3 % Neutrophils # (Auto) 2.9 TH/MM3 Lymphocytes # (Auto) 1.9 TH/MM3 Monocytes # (Auto) 0.6 TH/MM3 Eosinophils # (Auto) 0.1 TH/MM3 Basophils # (Auto) 0.0 TH/MM3 CBC Comment DIFF FINAL Differential Comment Sodium Level 142 MEQ/L Potassium Level 4.0 MEQ/L Chloride Level 106 MEQ/L Carbon Dioxide Level 27.9 MEQ/L Anion Gap 8 MEQ/L Blood Urea Nitrogen 17 MG/DL Creatinine 0.93 MG/DL Estimat Glomerular Filtration 88 ML/MIN Rate Random Glucose 81 MG/DL Calcium Level 8.9 MG/DL Total Bilirubin 0.3 MG/DL Aspartate Amino Transf 19 U/L (AST/SGOT) Alanine Aminotransferase 19 U/L (ALT/SGPT) Alkaline Phosphatase 30 U/L Total Protein 6.9 GM/DL Albumin 3.6 GM/DL Salicylates Level LESS THAN 1.7 MG/DL Acetaminophen Level LESS THAN 2.0 MCG/ML Ethyl Alcohol Level LESS THAN 3 MG/DL 45-year-old male here with complaints of auditory hallucination. Patient was recently discharged from hospital less than 12 hours ago. His last labs were from early August. Labs have been ordered. If within normal limits, patient will be cleared for psych screen. He may require admission as he was recently here and interventions were not successful. tox screen is pending, but will not hinder medical clearance. Diagnosis Primary Impression: Hallucinations Condition: Stable Karla Spann Sep 26, 2016 19:35
[2016-09-26 20:24] LABS: AUTOMATED NEUTROPHIL # 2.9 TH/MM3 (1.8-7.7); BASOPHIL % 0.3 % (0.0-2.0); EOSINOPHIL # 0.1 TH/MM3 (0-0.4); EOSINOPHIL % 2.4 % (0.0-4.0); HEMATOCRIT 39.8 % (39.0-51.0); HEMO FLAGS DIFF FINAL; LYMPH % 33.8 % (9.0-44.0); LYMPHOCYTE # 1.9 TH/MM3 (1.0-4.8); MEAN CELL VOLUME 88.7 FL (80.0-100.0); MEAN CORPUSCULAR HEMOGLOBIN 29.4 PG (27.0-34.0); MEAN CORPUSCULAR HGB CONC 33.2 % (32.0-36.0); MONO % 11.3 % (0.0-8.0); NEUT % 52.2 % (16.0-70.0); PLATELET COUNT 186 TH/MM3 (150-450); RED BLOOD COUNT 4.48 MIL/MM3 (4.50-5.90); RED CELL DISTRIBUTION WIDTH 13.3 % (11.6-17.2); WHITE BLOOD COUNT 5.5 TH/MM3 (4.0-11.0)
[2016-09-26 20:52] LABS: ANION GAP 8 MEQ/L (5-15); AST (GOT) 19 U/L (15-37); BICARBONATE 27.9 MEQ/L (21.0-32.0); BLOOD UREA NITROGEN 17 MG/DL (7-18); CHLORIDE 106 MEQ/L (98-107); GLOMERULAR FILTRATION RATE 88 ML/MIN (>89); SODIUM (NA) 142 MEQ/L (136-145)
[2016-09-26 20:54] LABS: ACETAMINOPHEN LESS THAN 2.0 MCG/ML (10.0-30.0); ALT (GPT) 19 U/L (12-78)
[2016-09-26 20:55] LABS: ALKALINE PHOSPHATASE 30 U/L (45-117); TOTAL BILIRUBIN ADULT 0.3 MG/DL (0.2-1.0)
[2016-09-26 22:00] VITALS: BP 139/69; PULSE 60; RESP 19; O2SAT 95
[2016-09-26] MEDS ORDERED: ALUMINUM/MAGNESIUM/SIMETH 30 ML CUP PO PRN (23:00)
[2016-09-26] MEDS ORDERED: LORazepam 2 MG/ML VIAL IM PRN (23:00)
[2016-09-26] MEDS ORDERED: MAGNESIUM HYDROXIDE SUSP 30 ML CUP PO PRN (23:00)
[2016-09-26 23:15] LABS: AMPHETAMINE, URINE NEG (NEG); BARBITURATES, URINE NEG (NEG); COCAINE, URINE NEG (NEG)
[2016-09-27 00:53] VITALS: BP 118/67; PULSE 58; RESP 16; TEMP 97.6; O2SAT 95
[2016-09-27 05:45] VITALS: BP 101/61; PULSE 70; RESP 16; TEMP 97.8; O2SAT 96
[2016-09-27] MEDS: TAMSULOSIN HCL 0.4 MG CAP PO SCH ×2 (08:38→16:00)
[2016-09-27] MEDS: BETAMETHASONE/CLOTRIMAZOLE CREAM 15 GM TOPICAL SCH ×2 (08:39→16:00)
[2016-09-27] MEDS: DIVALPROEX SODIUM E.R. 250 MG TAB PO SCH (08:39)
[2016-09-27 09:40] LABS: HDL CHOLESTEROL 32.8 MG/DL (40.0-60.0); LDL CHOLESTEROL 85 MG/DL (0-99)
[2016-09-27] MEDS: NICOTINE 21 MG/24 HR PATCH T-DERMAL SCH (14:00)
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
[2016-09-27 16:16] LABS: HEMOGLOBIN A1a 1.2 %; HEMOGLOBIN A1b 1.7 %; HEMOGLOBIN Ao 85.7 %; HEMOGLOBIN LA1C 1.9 %; HEMOGLOBIN P3 3.7 %
[2016-09-27 17:13] VITALS: BP 114/59; PULSE 80; RESP 17
[2016-09-27] MEDS: ACETAMINOPHEN 325 MG TAB PO PRN (17:33)
[2016-09-27] MEDS: FLUoxetine HCL 20 MG CAP PO SCH (20:00)
[2016-09-27] MEDS: DIAZEPAM 5 MG TAB PO SCH (21:55)
[2016-09-27] MEDS: DIVALPROEX SODIUM E.R. 500 MG TAB PO SCH (21:55)
[2016-09-27] MEDS: BUDESONIDE-FORMOTEROL 160/4.5 MCG INHALER INH SCH (21:57)
[2016-09-27] MEDS: GABAPENTIN 400 MG CAP PO SCH (21:58)
[2016-09-28 05:28] VITALS: BP 91/53; PULSE 56; RESP 18; TEMP 97.5; O2SAT 95
[2016-09-28] MEDS: BETAMETHASONE/CLOTRIMAZOLE CREAM 15 GM TOPICAL SCH ×2 (08:00→16:00)
[2016-09-28] MEDS: TAMSULOSIN HCL 0.4 MG CAP PO SCH ×2 (08:00→16:00)
[2016-09-28] MEDS: DIVALPROEX SODIUM E.R. 250 MG TAB PO SCH (08:27)
[2016-09-28] MEDS: GABAPENTIN 400 MG CAP PO SCH ×2 (08:27→20:54)
[2016-09-28] MEDS: FENOFIBRATE 145 MG TAB PO SCH (08:27)
[2016-09-28] MEDS: ARIPiprazole 5 MG TAB PO SCH (08:28)
[2016-09-28] MEDS: DIAZEPAM 5 MG TAB PO SCH ×2 (08:28→20:54)
[2016-09-28] MEDS: FLUoxetine HCL 20 MG CAP PO SCH ×3 (08:33→18:00)
[2016-09-28] MEDS: BUDESONIDE-FORMOTEROL 160/4.5 MCG INHALER INH SCH ×2 (08:34→20:54)
[2016-09-28] MEDS: REMOVE OLD PATCH T-DERMAL SCH (09:00)
[2016-09-28] MEDS: NICOTINE 21 MG/24 HR PATCH T-DERMAL SCH (09:00)
[2016-09-28] MEDS: POLYETHYLENE GLYCOL 17 GM PKG PO SCH (09:00)
[2016-09-28] MEDS ORDERED: PNEUMOCOCCAL POLYVALENT INJ 25 MCG/0.5 ML SYR IM ONE (10:00)
--- NOTE | 2016-09-28 16:11 | HHI.PYPN ---
Subjective Remarks Pt seen and discussed with staff. He is compliant with medications and denies side effects. He c/ of AH telling him to kill "Miss Ramirez" which he finds disturbing because he does not want to do this. No disruption on unit. Objective Alert: Yes [place]: Person, Place, Date Mood: Anxious Affect: Flat Memory Intact: Immediate, Recent, Remote Hallucinations: Auditory, Other (command) Delusions: No Delusion Type: Other (none) Suicidal: Ideation (denies) Homicidal: Ideation (experiencing command AH to kill "Miss Ramirez" , but denies intent or plan) Insight/Judgment poor Labs Test 09/28/16 10:17 Ammonia 108 MCMOL/L Valproic Acid (Depakene) Level 51 MCG/ML Vitals/IOs Vital Signs Date Time Temp Pulse Resp B/P Pulse Ox O2 Delivery O2 Flow Rate FiO2 09/28/16 05:28 97.5 56 18 91/53 95 09/26/16 22:00 Room Air Assessment & Plan Problem List: (1) Adjustment disorder with mixed disturbance of emotions and conduct ICD Code: F43.25 (2) Intellectual disability ICD Code: F79 (3) Psychosis ICD Code: F29 Assessment & Plan Continue current tx plan. Estimated LOS: days Justification for Cont. Inpt. impairments in safety Request HC Surrog/Guard Advoc?: No Problem Qualifiers (1) Psychosis: Qualified Code: F28 - Other psychotic disorder not due to substance or known physiological condition Sera Levine MD Sep 28, 2016 16:11
[2016-09-28 18:02] VITALS: BP 103/57; PULSE 56; RESP 17; TEMP 97.6; O2SAT 98
[2016-09-28] MEDS: DIVALPROEX SODIUM E.R. 500 MG TAB PO SCH (20:54)
[2016-09-28] MEDS: LORazepam 1 MG TAB PO PRN (22:43)
[2016-09-29 04:53] VITALS: BP 120/66; PULSE 70; RESP 16; TEMP 97.9; O2SAT 97
[2016-09-29] MEDS: FLUoxetine HCL 20 MG CAP PO SCH ×3 (09:09→17:50)
[2016-09-29] MEDS: DIAZEPAM 5 MG TAB PO SCH ×2 (09:09→20:31)
[2016-09-29] MEDS: FENOFIBRATE 145 MG TAB PO SCH (09:09)
[2016-09-29] MEDS: GABAPENTIN 400 MG CAP PO SCH ×2 (09:09→20:31)
[2016-09-29] MEDS: ARIPiprazole 5 MG TAB PO SCH (09:10)
[2016-09-29] MEDS: DIVALPROEX SODIUM E.R. 250 MG TAB PO SCH (09:10)
[2016-09-29] MEDS: NICOTINE 21 MG/24 HR PATCH T-DERMAL SCH (09:11)
[2016-09-29] MEDS: REMOVE OLD PATCH T-DERMAL SCH (09:11)
[2016-09-29] MEDS: BETAMETHASONE/CLOTRIMAZOLE CREAM 15 GM TOPICAL SCH ×2 (09:12→16:26)
[2016-09-29] MEDS: BUDESONIDE-FORMOTEROL 160/4.5 MCG INHALER INH SCH ×2 (09:12→20:30)
[2016-09-29] MEDS: POLYETHYLENE GLYCOL 17 GM PKG PO SCH (09:12)
[2016-09-29] MEDS: TAMSULOSIN HCL 0.4 MG CAP PO SCH ×2 (09:24→16:26)
[2016-09-29] MEDS: ACETAMINOPHEN 325 MG TAB PO PRN (12:55)
[2016-09-29 18:24] VITALS: BP 109/59; PULSE 72; RESP 18; TEMP 97.8; O2SAT 95
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
[2016-09-29] MEDS: LORazepam 1 MG TAB PO PRN (20:30)
[2016-09-29] MEDS: DIVALPROEX SODIUM E.R. 500 MG TAB PO SCH (20:30)
[2016-09-30] MEDS: LORazepam 1 MG TAB PO PRN (02:22)
[2016-09-30] MEDS: BETAMETHASONE/CLOTRIMAZOLE CREAM 15 GM TOPICAL SCH ×2 (08:00→16:00)
[2016-09-30] MEDS: TAMSULOSIN HCL 0.4 MG CAP PO SCH ×2 (08:00→16:28)
[2016-09-30] MEDS: REMOVE OLD PATCH T-DERMAL SCH (09:00)
[2016-09-30] MEDS: BUDESONIDE-FORMOTEROL 160/4.5 MCG INHALER INH SCH ×2 (09:00→21:27)
[2016-09-30] MEDS: NICOTINE 21 MG/24 HR PATCH T-DERMAL SCH (09:00)
[2016-09-30] MEDS: DIAZEPAM 5 MG TAB PO SCH ×2 (09:14→21:26)
[2016-09-30] MEDS: ARIPiprazole 5 MG TAB PO SCH (09:14)
[2016-09-30] MEDS: FENOFIBRATE 145 MG TAB PO SCH (09:15)
[2016-09-30] MEDS: DIVALPROEX SODIUM E.R. 250 MG TAB PO SCH (09:15)
[2016-09-30] MEDS: FLUoxetine HCL 20 MG CAP PO SCH ×3 (09:15→17:44)
[2016-09-30] MEDS: POLYETHYLENE GLYCOL 17 GM PKG PO SCH (09:15)
[2016-09-30] MEDS: GABAPENTIN 400 MG CAP PO SCH ×2 (09:23→21:27)
--- NOTE | 2016-09-30 12:16 | HHI.PYPN ---
Subjective Remarks Patient seen and examined with nurse. Chart reviewed. Case discussed with nursing staff. On my examination today, the patient complains of somewhat poor sleep. He says that his sleep is disrupted by auditory hallucinations saying "she's got to ," alluding to the engineering group leader Ms. Nugent. Patient denies any homicidal plan or intent. He describes occasional thoughts of self- harm but no plan or intent on this point either. Denies auditory or other hallucinations outside of the nighttime setting. Denies side effects from medications. No physical complaints. Review of Systems ROS Limitations: Poor Historian Except as stated in HPI: all other systems reviewed are Neg Objective Alert: Yes [place]: Person, Place, Date, Situation Mood: Calm Affect: Flat Memory Intact: Comment (intact on clinical exam) Hallucinations: Auditory (nighttime, as above) Delusions: No Delusion Type: Other (no delusions) Suicidal: Intent (denies), Plan (denies), Ideation (fleeting) Homicidal: Intent (denies), Plan (denies), Ideation (in response to CAH) Insight/Judgment Chronically poor Remarks No motor abnormalities noted. Thought process linear. Grooming and hygiene fair. Labs Labs reviewed. Hyperammonemia noted over the weekend. I have ordered the ammonia level rechecked and this is presently listed as in process. Vitals/IOs Vital Signs Date Time Temp Pulse Resp B/P Pulse Ox O2 Delivery O2 Flow Rate FiO2 09/29/16 18:24 97.8 72 18 109/59 95 09/26/16 22:00 Room Air Assessment & Plan Problem List: (1) Adjustment disorder with mixed disturbance of emotions and conduct ICD Code: F43.25 (2) Intellectual disability ICD Code: F79 (3) Psychosis ICD Code: F29 Assessment & Plan Titrate Abilify to 10 mg daily. Continue other psychotropics as ordered. Follow-up ammonia level. I have gone ahead and ordered lactulose for the management of hyperammonemia. There is no evidence of any hyperammonemic encephalopathy in this patient at this time. Continue to monitor on the inpatient unit. Continue other medications and care as ordered. Justification for Cont. Inpt. Monitoring for impairments in safety. Medication changes in process. High risk for decompensation in a less restrictive environment. Discharge Planning Counselor has been in contact with patient's facility, and the patient is welcome back there once stable. Request HC Surrog/Guard Advoc?: No Problem Qualifiers (1) Psychosis: Qualified Code: F28 - Other psychotic disorder not due to substance or known physiological condition Shayne Burt MD Sep 30, 2016 12:15
[2016-09-30] MEDS ORDERED: ARIPiprazole 5 MG TAB PO ONE (14:15)
[2016-09-30 17:25] VITALS: BP 121/62; PULSE 72; RESP 17; TEMP 96.9; O2SAT 98
[2016-09-30] MEDS: DIVALPROEX SODIUM E.R. 500 MG TAB PO SCH (21:26)
[2016-10-01] MEDS: LORazepam 1 MG TAB PO PRN (00:14)
[2016-10-01 06:05] VITALS: BP 121/63; PULSE 55; RESP 18; TEMP 98.6; O2SAT 97
[2016-10-01] MEDS: BETAMETHASONE/CLOTRIMAZOLE CREAM 15 GM TOPICAL SCH ×2 (08:00→16:00)
[2016-10-01] MEDS: TAMSULOSIN HCL 0.4 MG CAP PO SCH ×2 (08:36→16:00)
[2016-10-01] MEDS: LACTULOSE SYRUP 20 GM/30 ML CUP PO SCH (08:37)
[2016-10-01] MEDS: DIVALPROEX SODIUM E.R. 250 MG TAB PO SCH (08:37)
[2016-10-01] MEDS: FENOFIBRATE 145 MG TAB PO SCH (08:38)
[2016-10-01] MEDS: FLUoxetine HCL 20 MG CAP PO SCH ×3 (08:38→18:01)
[2016-10-01] MEDS: GABAPENTIN 400 MG CAP PO SCH ×2 (08:38→20:33)
[2016-10-01] MEDS: DIAZEPAM 5 MG TAB PO SCH (08:38)
[2016-10-01] MEDS: NICOTINE 21 MG/24 HR PATCH T-DERMAL SCH (09:00)
[2016-10-01] MEDS: REMOVE OLD PATCH T-DERMAL SCH (09:00)
[2016-10-01] MEDS ORDERED: ARIPiprazole 10 MG TAB PO SCH (09:00)
[2016-10-01] MEDS: BUDESONIDE-FORMOTEROL 160/4.5 MCG INHALER INH SCH ×2 (09:00→20:34)
[2016-10-01] MEDS: POLYETHYLENE GLYCOL 17 GM PKG PO SCH (09:00)
--- NOTE | 2016-10-01 13:46 | HHI.PYPN ---
Subjective Remarks Patient seen and examined with counselor. Chart reviewed. Case discussed with nursing staff who reports the patient is more talkative. He reportedly only slept for 5 hours. Case discussed in treatment team. On my examination today, the patient continues to complain of auditory hallucinations at night though he notes that these are now noncommand. Sleep remains poor. He says that he has not had a good response from trazodone in the past. He denies suicidal or homicidal ideation at this time. Denies side effects from medications. No physical complaints. Review of Systems ROS Limitations: Psychotic, Poor Historian Except as stated in HPI: all other systems reviewed are Neg Objective Alert: Yes [place]: Person (O x 3) Mood: Calm Affect: Blunted (somewhat childlike) Memory Intact: Comment (remains intact) Hallucinations: Auditory (at HS, non-command) Delusions: No Delusion Type: Other (no delusional material elicited) Suicidal: Ideation ([place] SI) Homicidal: Ideation (Denies HI) Insight/Judgment Poor Remarks No motoric abnormalities noted. Thought processes linear. Speech within normal limits for rate, tone and volume. Grooming and hygiene remain fair. Labs Test 09/30/16 10/01/16 17:56 07:15 Ammonia 55 MCMOL/L 30 MCMOL/L Labs reviewed. Ammonia level has normalized. Vitals/IOs Vital Signs Date Time Temp Pulse Resp B/P Pulse Ox O2 Delivery O2 Flow Rate FiO2 10/01/16 06:05 98.6 55 18 121/63 97 Assessment & Plan Problem List: (1) Adjustment disorder with mixed disturbance of emotions and conduct ICD Code: F43.25 (2) Intellectual disability ICD Code: F79 (3) Psychosis ICD Code: F29 Assessment & Plan Titrate Abilify to 15mg daily to manage psychosis. Patient seems to be responding to this medication; to consider long-acting injectable Abilify. Titrate nighttime dose of Valium to 10mg to assist with sleep. Continue other psychotropics as ordered. Continue to monitor on the inpatient unit. Continue other medications and care as ordered. Justification for Cont. Inpt. Medication changes in process. High risk for decompensation in a less restrictive environment. Discharge Planning Pending psychiatric stabilization. Request HC Surrog/Guard Advoc?: No Problem Qualifiers (1) Psychosis: Qualified Code: F28 - Other psychotic disorder not due to substance or known physiological condition Shayne Burt MD Oct 01, 2016 13:45
--- NOTE | 2016-10-01 15:16 | PD.TTN ---
Present for Treatment Team Treatment Team Staff: Provider (Carmel), Nurse (Chelsie), Psych Therapist ( Briana ), Occupational Therapist (Theodore) Patient Problems 1. Discharge planning 2. Medication compliance 3. Knowledge deficit 4. Lack of coping skills Progress Toward Goals Provider Input: Will adjust meds further and aniticpate discharge either late this week or early next week Nurse Input: Pt is doing better and less standoffish more at ease doesn't sleep well attending more groups Psych Therapist Input: Pt is wanting to return to his LOU is open to med adjustment is still hearing some voices at nighttime but denies any S/I and H/I and no more voices about wanting to hurt LOU manager completions denies side effects of meds to doctor has been taken naps during day and is suggested by doctor to sleep more during night Occupational Therapist Input: attends select groups but does not actively participate Briana Couch [facility] Oct 01, 2016 15:16
[2016-10-01] MEDS: DIVALPROEX SODIUM E.R. 500 MG TAB PO SCH (20:33)
[2016-10-01] MEDS: DIAZEPAM 10 MG TAB PO SCH (20:33)
[2016-10-02] MEDS: LORazepam 1 MG TAB PO PRN (02:36)
[2016-10-02 05:56] VITALS: BP 101/69; PULSE 60; RESP 20; TEMP 96.6; O2SAT 98
[2016-10-02] MEDS: TAMSULOSIN HCL 0.4 MG CAP PO SCH ×2 (08:00→16:00)
[2016-10-02] MEDS: BETAMETHASONE/CLOTRIMAZOLE CREAM 15 GM TOPICAL SCH ×2 (08:00→16:00)
[2016-10-02] MEDS: REMOVE OLD PATCH T-DERMAL SCH (09:00)
[2016-10-02] MEDS: NICOTINE 21 MG/24 HR PATCH T-DERMAL SCH (09:00)
[2016-10-02] MEDS: BUDESONIDE-FORMOTEROL 160/4.5 MCG INHALER INH SCH ×2 (09:00→20:38)
[2016-10-02] MEDS: DIAZEPAM 5 MG TAB PO SCH (09:14)
[2016-10-02] MEDS: POLYETHYLENE GLYCOL 17 GM PKG PO SCH (09:14)
[2016-10-02] MEDS: GABAPENTIN 400 MG CAP PO SCH ×2 (09:15→20:38)
[2016-10-02] MEDS: FENOFIBRATE 145 MG TAB PO SCH (09:15)
[2016-10-02] MEDS: DIVALPROEX SODIUM E.R. 250 MG TAB PO SCH (09:15)
[2016-10-02] MEDS: LACTULOSE SYRUP 20 GM/30 ML CUP PO SCH (09:15)
[2016-10-02] MEDS: FLUoxetine HCL 20 MG CAP PO SCH ×3 (09:15→17:46)
[2016-10-02] MEDS: ARIPiprazole 10 MG TAB PO SCH (09:15)
--- NOTE | 2016-10-02 09:51 | HHI.PYPN ---
Subjective Remarks Patient seen and examined with counselor. Chart reviewed. Case discussed with nursing staff. On my examination today, the patient complains chiefly of ongoing difficulty sleeping, although this was reportedly due to the fact that his roommate was quite noisy overnight. He says that otherwise he is "feeling normal" today. He says that his auditory hallucinations are considerably attenuated and he does not describe any command auditory hallucinations today. He denies any suicidal or homicidal ideation, and in particular denies any urge to hurt Ms. Nugent. Denies side effects from medications. No physical complaints. Review of Systems ROS Limitations: Poor Historian Except as stated in HPI: all other systems reviewed are Neg Objective Alert: Yes [place]: Person (once again oriented 3) Mood: Calm Affect: Appropriate (a little childlike) Memory Intact: Comment (intact on clinical exam) Hallucinations: Auditory (considerably attenuated, noncommand) Delusions: No Delusion Type: Other (no delusions) Suicidal: Ideation (denies suicidal ideation) Homicidal: Ideation (denies homicidal ideation) Insight/Judgment Poor Remarks No abnormal motor movements noted. Thought process fairly linear. Grooming and hygiene good. Labs Labs reviewed. 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 Plan for long-acting injectable Abilify prior to discharge. Rather than titrating his hypnotics, I have asked the nursing staff to move the patient to a different room to see if he sleeps better this evening. I have asked the Counselor to have a healthcare sales representative from his facility come to evaluate the patient to see if he is approaching his chronic baseline. In the meantime I will plan to monitor the patient on the inpatient unit and continue other medications and care as ordered. Justification for Cont. Inpt. Risk for decompensation. Resolving impairment in reality construction. Discharge Planning I am hopeful that we can arrange for discharge back to his facility by the end of the week or by Friday at the latest so long as he is at his chronic baseline. Request HC Surrog/Guard Advoc?: No Problem Qualifiers (1) Psychosis: Qualified Code: F28 - Other psychotic disorder not due to substance or known physiological condition Shayne Burt MD Oct 02, 2016 09:50
[2016-10-02 18:00] VITALS: BP 115/58; PULSE 81; RESP 18; TEMP 97.4; O2SAT 95
[2016-10-02] MEDS: DIVALPROEX SODIUM E.R. 500 MG TAB PO SCH (20:38)
[2016-10-02] MEDS: DIAZEPAM 10 MG TAB PO SCH (20:38)
[2016-10-03 05:47] VITALS: BP 124/53; PULSE 67; RESP 16; TEMP 97.4; O2SAT 94
[2016-10-03] MEDS: REMOVE OLD PATCH T-DERMAL SCH (09:00)
[2016-10-03] MEDS: FENOFIBRATE 145 MG TAB PO SCH (09:12)
[2016-10-03] MEDS: ARIPiprazole 10 MG TAB PO SCH (09:12)
[2016-10-03] MEDS: LACTULOSE SYRUP 20 GM/30 ML CUP PO SCH (09:13)
[2016-10-03] MEDS: DIVALPROEX SODIUM E.R. 250 MG TAB PO SCH (09:13)
[2016-10-03] MEDS: DIAZEPAM 5 MG TAB PO SCH (09:13)
[2016-10-03] MEDS: FLUoxetine HCL 20 MG CAP PO SCH ×3 (09:13→17:39)
[2016-10-03] MEDS: GABAPENTIN 400 MG CAP PO SCH ×2 (09:13→21:36)
[2016-10-03] MEDS: NICOTINE 21 MG/24 HR PATCH T-DERMAL SCH (09:14)
[2016-10-03] MEDS: BETAMETHASONE/CLOTRIMAZOLE CREAM 15 GM TOPICAL SCH ×2 (09:14→17:39)
[2016-10-03] MEDS: BUDESONIDE-FORMOTEROL 160/4.5 MCG INHALER INH SCH ×2 (09:15→21:34)
[2016-10-03] MEDS: POLYETHYLENE GLYCOL 17 GM PKG PO SCH (09:21)
[2016-10-03] MEDS: TAMSULOSIN HCL 0.4 MG CAP PO SCH ×2 (09:24→17:39)
--- NOTE | 2016-10-03 11:51 | HHI.PYPN ---
Subjective Remarks Patient seen and examined with nurse. Chart reviewed. Case discussed with nursing staff who says that the patient was endorsing occasional auditory hallucinations to "hurt people" when he leaves the hospital. On my examination today, the patient appears to be in good spirits. He denies any command auditory hallucinations to me and fact says that his residual auditory hallucinations are more or less unintelligible, "I can't hardly hear them." Denies any suicidal or homicidal ideation. He reports that his sleep was much improved yesterday. Denies side effects from medications. No physical complaints. Review of Systems ROS Limitations: Poor Historian Except as stated in HPI: all other systems reviewed are Neg Objective Alert: Yes [place]: Person (O x 3) Mood: Calm Affect: Other (remains a little childlike) Memory Intact: Comment (intact) Hallucinations: Auditory (minimal, non-command to me.) Delusions: No Delusion Type: Other (No delusional material) Suicidal: Ideation (Denies SI) Homicidal: Ideation (Denies HI) Insight/Judgment Poor Remarks No motor abnormalities noted. TP linear. Grooming and hygiene fair. Labs Labs reviewed. 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 Possible he is minimizing symptoms to me, but I think it is also possible the AH are exaggerated according to as the circumstance. In any event , the patient is denying any suicidal or homicidal ideation, intent or plan. Titrate Abilify to 20mg daily to target psychosis. Continue other psychotropics as ordered. Continue to monitor on the inpatient unit. There has been absolutely no evidence of any violence so far. Continue other medications and care as ordered. Justification for Cont. Inpt. Monitoring for impairments in safety, so far none. Medication changes in process. Discharge Planning Return to facility. Counselor has called to try to get accounting representative from facility to come out to evaluate the patient prior to discharge. Request HC Surrog/Guard Advoc?: No Problem Qualifiers (1) Psychosis: Qualified Code: F28 - Other psychotic disorder not due to substance or known physiological condition Shayne Burt MD Oct 03, 2016 11:51
[2016-10-03 18:00] VITALS: BP 114/70; PULSE 66; RESP 17; TEMP 97.7
[2016-10-03] MEDS: DIVALPROEX SODIUM E.R. 500 MG TAB PO SCH (21:36)
[2016-10-03] MEDS: DIAZEPAM 10 MG TAB PO SCH (21:36)
[2016-10-03] MEDS: LORazepam 1 MG TAB PO PRN (23:26)
[2016-10-04 06:00] VITALS: BP 102/62; PULSE 60; RESP 18; TEMP 96.9; O2SAT 95
[2016-10-04] MEDS: GABAPENTIN 400 MG CAP PO SCH ×2 (08:53→21:08)
[2016-10-04] MEDS: DIAZEPAM 5 MG TAB PO SCH (08:53)
[2016-10-04] MEDS: TAMSULOSIN HCL 0.4 MG CAP PO SCH ×2 (08:53→16:00)
[2016-10-04] MEDS: DIVALPROEX SODIUM E.R. 250 MG TAB PO SCH (08:53)
[2016-10-04] MEDS: FENOFIBRATE 145 MG TAB PO SCH (08:53)
[2016-10-04] MEDS: FLUoxetine HCL 20 MG CAP PO SCH ×3 (08:54→18:00)
[2016-10-04] MEDS: BUDESONIDE-FORMOTEROL 160/4.5 MCG INHALER INH SCH ×2 (08:54→21:00)
[2016-10-04] MEDS: REMOVE OLD PATCH T-DERMAL SCH (08:54)
[2016-10-04] MEDS: NICOTINE 21 MG/24 HR PATCH T-DERMAL SCH (08:54)
[2016-10-04] MEDS: LACTULOSE SYRUP 20 GM/30 ML CUP PO SCH (08:54)
[2016-10-04] MEDS: BETAMETHASONE/CLOTRIMAZOLE CREAM 15 GM TOPICAL SCH ×2 (08:55→16:00)
[2016-10-04] MEDS: POLYETHYLENE GLYCOL 17 GM PKG PO SCH (09:00)
--- NOTE | 2016-10-04 12:33 | HHI.PYPN ---
Subjective Remarks Patient seen and examined with counselor. Chart reviewed. Case discussed with nursing staff. Patient has been no behavioral problem on the unit. Counselor informs me that Miss Ramirez from patient's facility came on the unit to evaluate patient; she reportedly finds him about at his baseline and is willing to accept him back Friday. On my examination today, patient is in good spirits. He was happy to have received a visit from Miss Ramirez. He denies any AVH. No CAH. Denies any SI or HI. In particular denies any HI against Miss Ramirez. Mood is good, "I feel happy." Seems quite comfortable and asks to stay on the unit for another week. When I ask what the therapeutic goals would be for him staying on the unit another week, he cannot generate any. Denies side effects from medications. No physical complaints. Review of Systems Except as stated in HPI: all other systems reviewed are Neg Objective Alert: Yes [place]: Person, Place, Date Mood: Calm Affect: Euthymic (childlike) Memory Intact: Comment (remains intact) Hallucinations: Other (denies audiovisual hallucinations) Delusions: No Delusion Type: Other (No delusional material) Suicidal: Ideation (denies suicidal ideation) Homicidal: Ideation (denies homicidal ideation) Insight/Judgment Chronically poor Remarks No motor abnormalities noted. Grooming and hygiene good. Labs Labs reviewed. 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 Could consider Abilify Maintena prior to discharge, although it is not clear that med non-adherence is an issue. Continue to monitor on the inpatient unit. Continue other medications and care as ordered. Justification for Cont. Inpt. Risk for decompensation Discharge Planning Back to facility Friday barring some clinical deterioration. Request HC Surrog/Guard Advoc?: No Problem Qualifiers (1) Psychosis: Qualified Code: F28 - Other psychotic disorder not due to substance or known physiological condition Shayne Burt MD Oct 04, 2016 12:33
[2016-10-04 18:00] VITALS: BP 135/79; PULSE 74; RESP 18; TEMP 97.1; O2SAT 96
[2016-10-04] MEDS: DIVALPROEX SODIUM E.R. 500 MG TAB PO SCH (21:08)
[2016-10-04] MEDS: LORazepam 1 MG TAB PO PRN (21:08)
[2016-10-04] MEDS: DIAZEPAM 10 MG TAB PO SCH (21:08)
[2016-10-05 06:06] VITALS: BP 109/60; PULSE 74; RESP 18; TEMP 97; O2SAT 95
[2016-10-05] MEDS: TAMSULOSIN HCL 0.4 MG CAP PO SCH ×2 (08:00→15:06)
[2016-10-05] MEDS: BETAMETHASONE/CLOTRIMAZOLE CREAM 15 GM TOPICAL SCH ×2 (08:00→15:06)
[2016-10-05] MEDS: LACTULOSE SYRUP 20 GM/30 ML CUP PO SCH (08:23)
[2016-10-05] MEDS: BUDESONIDE-FORMOTEROL 160/4.5 MCG INHALER INH SCH ×2 (08:23→20:49)
[2016-10-05] MEDS: POLYETHYLENE GLYCOL 17 GM PKG PO SCH (08:24)
[2016-10-05] MEDS: REMOVE OLD PATCH T-DERMAL SCH (08:24)
[2016-10-05] MEDS: DIAZEPAM 5 MG TAB PO SCH (08:24)
[2016-10-05] MEDS: NICOTINE 21 MG/24 HR PATCH T-DERMAL SCH (08:24)
[2016-10-05] MEDS: FENOFIBRATE 145 MG TAB PO SCH (08:24)
[2016-10-05] MEDS: DIVALPROEX SODIUM E.R. 250 MG TAB PO SCH (08:24)
[2016-10-05] MEDS: GABAPENTIN 400 MG CAP PO SCH ×2 (08:24→20:49)
[2016-10-05] MEDS: FLUoxetine HCL 20 MG CAP PO SCH ×3 (08:24→17:09)
--- NOTE | 2016-10-05 14:02 | HHI.PYPN ---
Subjective Remarks Patient was seen and case discussed with nursing. Patient is pleasant and cooperative with exam. Cognitive deficits are evident and affect is anxious today. He told the nursing voices were better and described them as mumbling. However, he tells me that he were telling him all night to hurt other people. Describes poor sleep. He attended therapeutic group and is interacting with others. Compliant with medications. 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 Inpt. Patient would decompensate in a less restrictive setting Request HC Surrog/Guard Advoc?: No Problem Qualifiers (1) Psychosis: Qualified Code: F28 - Other psychotic disorder not due to substance or known physiological condition Lucian Pedroza DO Oct 05, 2016 14:02
[2016-10-05] MEDS: LORazepam 1 MG TAB PO PRN (15:06)
[2016-10-05 18:13] VITALS: BP 141/63; PULSE 103; RESP 18; TEMP 97.9; O2SAT 98
[2016-10-05] MEDS: DIVALPROEX SODIUM E.R. 500 MG TAB PO SCH (20:49)
[2016-10-05] MEDS: DIAZEPAM 10 MG TAB PO SCH (20:49)
[2016-10-05] MEDS: diphenhydrAMINE HCL 50 MG CAP PO SCH (20:49)
[2016-10-05] MEDS: guaiFENesin/DEXTROMETHORPHAN 200 MG/20 MG/10 ML CUP PO PRN (21:21)
[2016-10-05] MEDS: ALBUTEROL SULFATE 90 MCG/ACT HFA 18 GM INHALER INH PRN (21:21)
[2016-10-05 22:45] VITALS: BP 123/62; PULSE 88; RESP 17; TEMP 98.5; O2SAT 96
[2016-10-06] MEDS: ALBUTEROL SULFATE 90 MCG/ACT HFA 18 GM INHALER INH PRN ×3 (03:45→20:33)
[2016-10-06] MEDS: guaiFENesin/DEXTROMETHORPHAN 200 MG/20 MG/10 ML CUP PO PRN ×2 (03:49→20:33)
[2016-10-06 05:53] VITALS: BP 108/62; PULSE 70; RESP 18; TEMP 96.7; O2SAT 95
[2016-10-06] MEDS: BETAMETHASONE/CLOTRIMAZOLE CREAM 15 GM TOPICAL SCH ×2 (08:00→16:00)
[2016-10-06] MEDS: FENOFIBRATE 145 MG TAB PO SCH (08:29)
[2016-10-06] MEDS: DIAZEPAM 5 MG TAB PO SCH (08:30)
[2016-10-06] MEDS: DIVALPROEX SODIUM E.R. 250 MG TAB PO SCH (08:30)
[2016-10-06] MEDS: FLUoxetine HCL 20 MG CAP PO SCH ×3 (08:30→16:26)
[2016-10-06] MEDS: LACTULOSE SYRUP 20 GM/30 ML CUP PO SCH (08:30)
[2016-10-06] MEDS: POLYETHYLENE GLYCOL 17 GM PKG PO SCH (08:30)
[2016-10-06] MEDS: NICOTINE 21 MG/24 HR PATCH T-DERMAL SCH (08:31)
[2016-10-06] MEDS: TAMSULOSIN HCL 0.4 MG CAP PO SCH ×2 (08:40→16:26)
[2016-10-06] MEDS: GABAPENTIN 400 MG CAP PO SCH ×2 (08:41→20:32)
[2016-10-06] MEDS: REMOVE OLD PATCH T-DERMAL SCH (08:41)
[2016-10-06] MEDS: BUDESONIDE-FORMOTEROL 160/4.5 MCG INHALER INH SCH ×2 (08:41→20:33)
--- NOTE | 2016-10-06 13:37 | HHI.PYPN ---
Subjective Remarks Patient was seen and case discussed with nursing. Sleep has improved medication changes last night. Today patient is anxious and hypoverbal with some thought blocking. Patient says last night he heard voices telling him to slice his wrist. Says he has no ideation intent or plan of doing so. Did not go outside, seclusive to self. Objective Alert: Yes [place]: Person, Place, Date Mood: Calm Affect: Other (anxious) Memory Intact: Comment (remains intact) Hallucinations: Auditory (last night telling him to cut himself) Delusions: No Delusion Type: Other (No delusional material) Suicidal: Ideation (denies suicidal ideation) Homicidal: Ideation (denies homicidal ideation) Insight/Judgment Poor Vitals/IOs Vital Signs Date Time Temp Pulse Resp B/P Pulse Ox O2 Delivery O2 Flow Rate FiO2 10/06/16 05:53 96.7 70 18 108/62 95 Assessment & Plan Problem List: (1) Adjustment disorder with mixed disturbance of emotions and conduct ICD Code: F43.25 (2) Intellectual disability ICD Code: F79 (3) Psychosis ICD Code: F29 Assessment & Plan Continue current treatment plan Justification for Cont. Inpt. Patient will decompensate in a less restrictive setting Request HC Surrog/Guard Advoc?: No Problem Qualifiers (1) Psychosis: Qualified Code: F28 - Other psychotic disorder not due to substance or known physiological condition Lucian Pedroza DO Oct 06, 2016 13:37
[2016-10-06 17:23] VITALS: BP 119/76; PULSE 67; RESP 18; TEMP 97.1; O2SAT 98
[2016-10-06] MEDS: diphenhydrAMINE HCL 50 MG CAP PO SCH (20:32)
[2016-10-06] MEDS: DIVALPROEX SODIUM E.R. 500 MG TAB PO SCH (20:32)
[2016-10-06] MEDS: DIAZEPAM 10 MG TAB PO SCH (20:32)
[2016-10-07] MEDS: LORazepam 1 MG TAB PO PRN ×2 (00:53→15:31)
[2016-10-07 06:02] VITALS: BP 123/58; PULSE 65; RESP 18; TEMP 97.9; O2SAT 97
[2016-10-07] MEDS: BETAMETHASONE/CLOTRIMAZOLE CREAM 15 GM TOPICAL SCH ×2 (08:00→15:34)
[2016-10-07] MEDS: BUDESONIDE-FORMOTEROL 160/4.5 MCG INHALER INH SCH ×2 (08:07→21:00)
[2016-10-07] MEDS: TAMSULOSIN HCL 0.4 MG CAP PO SCH ×2 (08:08→16:54)
[2016-10-07] MEDS: REMOVE OLD PATCH T-DERMAL SCH (08:08)
[2016-10-07] MEDS: GABAPENTIN 400 MG CAP PO SCH ×2 (08:08→21:33)
[2016-10-07] MEDS: FLUoxetine HCL 20 MG CAP PO SCH ×3 (08:08→16:54)
[2016-10-07] MEDS: LACTULOSE SYRUP 20 GM/30 ML CUP PO SCH (08:08)
[2016-10-07] MEDS: NICOTINE 21 MG/24 HR PATCH T-DERMAL SCH (08:08)
[2016-10-07] MEDS: FENOFIBRATE 145 MG TAB PO SCH (08:08)
[2016-10-07] MEDS: DIVALPROEX SODIUM E.R. 250 MG TAB PO SCH (08:08)
[2016-10-07] MEDS: DIAZEPAM 5 MG TAB PO SCH (08:08)
[2016-10-07] MEDS: POLYETHYLENE GLYCOL 17 GM PKG PO SCH (08:09)
--- NOTE | 2016-10-07 13:54 | HHI.PYPN ---
Subjective Remarks Spoke with patient and discussed case with nurse. Patient compliant but otherwise unchanged. Review of Systems Except as stated in HPI: all other systems reviewed are Neg Objective Alert: Yes [place]: Person, Place, Date Mood: Calm Affect: Other (anxious) Memory Intact: Comment (remains intact) Hallucinations: Auditory (last night telling him to cut himself) Delusions: No Delusion Type: Other (No delusional material) Suicidal: Ideation (denies suicidal ideation) Homicidal: Ideation (denies homicidal ideation) Insight/Judgment Impaired Vitals/IOs Vital Signs Date Time Temp Pulse Resp B/P Pulse Ox O2 Delivery O2 Flow Rate FiO2 10/07/16 06:02 97.9 65 18 123/58 97 Assessment & Plan Problem List: (1) 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 Justification for Cont. Inpt. Likely to decompensate at lower level of care. Request HC Surrog/Guard Advoc?: No Problem Qualifiers (1) Psychosis: Qualified Code: F28 - Other psychotic disorder not due to substance or known physiological condition Yanick Escobar MD Oct 07, 2016 13:54
[2016-10-07 16:49] VITALS: BP 114/69; PULSE 81; RESP 18; TEMP 96.9; O2SAT 95
[2016-10-07] MEDS: diphenhydrAMINE HCL 50 MG CAP PO SCH (21:33)
[2016-10-07] MEDS: DIVALPROEX SODIUM E.R. 500 MG TAB PO SCH (21:33)
[2016-10-07] MEDS: DIAZEPAM 10 MG TAB PO SCH (21:33)
[2016-10-08] MEDS: ALBUTEROL SULFATE 90 MCG/ACT HFA 18 GM INHALER INH PRN (05:12)
[2016-10-08 06:09] VITALS: BP 126/73; PULSE 61; RESP 18; TEMP 98.1; O2SAT 97
[2016-10-08] MEDS: TAMSULOSIN HCL 0.4 MG CAP PO SCH ×2 (08:00→16:00)
[2016-10-08] MEDS: BETAMETHASONE/CLOTRIMAZOLE CREAM 15 GM TOPICAL SCH ×2 (08:00→16:00)
[2016-10-08] MEDS: NICOTINE 21 MG/24 HR PATCH T-DERMAL SCH (09:00)
[2016-10-08] MEDS: BUDESONIDE-FORMOTEROL 160/4.5 MCG INHALER INH SCH ×2 (09:00→22:13)
[2016-10-08] MEDS: POLYETHYLENE GLYCOL 17 GM PKG PO SCH (09:00)
[2016-10-08] MEDS: REMOVE OLD PATCH T-DERMAL SCH (09:00)
[2016-10-08] MEDS: FENOFIBRATE 145 MG TAB PO SCH (10:21)
[2016-10-08] MEDS: DIVALPROEX SODIUM E.R. 250 MG TAB PO SCH (10:21)
[2016-10-08] MEDS: DIAZEPAM 5 MG TAB PO SCH (10:21)
[2016-10-08] MEDS: FLUoxetine HCL 20 MG CAP PO SCH ×3 (10:21→17:32)
[2016-10-08] MEDS: GABAPENTIN 400 MG CAP PO SCH ×2 (10:22→22:14)
[2016-10-08] MEDS: LACTULOSE SYRUP 20 GM/30 ML CUP PO SCH (10:22)
--- NOTE | 2016-10-08 12:09 | HHI.PYPN ---
Subjective Remarks Ready to go but residents not taking him today. Review of Systems Except as stated in HPI: all other systems reviewed are Neg Objective Alert: Yes [place]: Person, Place, Date Mood: Calm Affect: Other (anxious) Memory Intact: Comment (remains intact) Hallucinations: Auditory (last night telling him to cut himself) Delusions: No Delusion Type: Other (No delusional material) Suicidal: Ideation (denies suicidal ideation) Homicidal: Ideation (denies homicidal ideation) Insight/Judgment Adequate Vitals/IOs Vital Signs Date Time Temp Pulse Resp B/P Pulse Ox O2 Delivery O2 Flow Rate FiO2 10/08/16 06:09 98.1 61 18 126/73 97 Assessment & Plan Problem List: (1) 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 Inpt. Placement Request HC Surrog/Guard Advoc?: No Problem Qualifiers (1) Psychosis: Qualified Code: F28 - Other psychotic disorder not due to substance or known physiological condition Yanick Escobar MD Oct 08, 2016 12:09
[2016-10-08 16:00] VITALS: BP 113/65; PULSE 75; RESP 18; TEMP 97.8; O2SAT 95
[2016-10-08] MEDS: DIAZEPAM 10 MG TAB PO SCH (21:00)
[2016-10-08] MEDS: diphenhydrAMINE HCL 50 MG CAP PO SCH (22:13)
[2016-10-08] MEDS: DIVALPROEX SODIUM E.R. 500 MG TAB PO SCH (22:13)
[2016-10-09 06:11] VITALS: BP 132/68; PULSE 85; RESP 20; TEMP 97.6; O2SAT 97
[2016-10-09] MEDS: BETAMETHASONE/CLOTRIMAZOLE CREAM 15 GM TOPICAL SCH ×2 (08:00→16:00)
[2016-10-09] MEDS: FLUoxetine HCL 20 MG CAP PO SCH ×3 (08:42→18:00)
[2016-10-09] MEDS: DIVALPROEX SODIUM E.R. 250 MG TAB PO SCH (08:43)
[2016-10-09] MEDS: LACTULOSE SYRUP 20 GM/30 ML CUP PO SCH (08:43)
[2016-10-09] MEDS: GABAPENTIN 400 MG CAP PO SCH ×2 (08:43→22:28)
[2016-10-09] MEDS: DIAZEPAM 5 MG TAB PO SCH (08:43)
[2016-10-09] MEDS: POLYETHYLENE GLYCOL 17 GM PKG PO SCH (08:43)
[2016-10-09] MEDS: FENOFIBRATE 145 MG TAB PO SCH (08:43)
[2016-10-09] MEDS: NICOTINE 21 MG/24 HR PATCH T-DERMAL SCH (08:45)
[2016-10-09] MEDS: REMOVE OLD PATCH T-DERMAL SCH (08:45)
[2016-10-09] MEDS: TAMSULOSIN HCL 0.4 MG CAP PO SCH ×2 (08:49→16:00)
[2016-10-09] MEDS: BUDESONIDE-FORMOTEROL 160/4.5 MCG INHALER INH SCH ×2 (08:57→21:00)
[2016-10-09] MEDS: LORazepam 1 MG TAB PO PRN (11:52)
--- NOTE | 2016-10-09 14:29 | HHI.PYPN ---
Subjective Remarks Supposed to be discharged yesterday but apparently did not happen because of holiday. Review of Systems Except as stated in HPI: all other systems reviewed are Neg Objective Alert: Yes [place]: Person, Place, Date Mood: Calm Affect: Other (anxious) Memory Intact: Comment (remains intact) Hallucinations: Auditory (last night telling him to cut himself) Delusions: No Delusion Type: Other (No delusional material) Suicidal: Ideation (denies suicidal ideation) Homicidal: Ideation (denies homicidal ideation) Insight/Judgment Baseline Vitals/IOs Vital Signs Date Time Temp Pulse Resp B/P Pulse Ox O2 Delivery O2 Flow Rate FiO2 10/09/16 06:11 97.6 85 20 132/68 97 Assessment & Plan Problem List: (1) Adjustment disorder with mixed disturbance of emotions and conduct ICD Code: F43.25 (2) Intellectual disability ICD Code: F79 (3) Psychosis ICD Code: F29 Assessment & Plan Estimated LOS: days placement Justification for Cont. Inpt. Placement Request HC Surrog/Guard Advoc?: No Problem Qualifiers (1) Psychosis: Qualified Code: F28 - Other psychotic disorder not due to substance or known physiological condition Yanick Escobar MD Oct 09, 2016 14:29
[2016-10-09 18:09] VITALS: BP 131/62; PULSE 80; RESP 18; TEMP 98; O2SAT 95
[2016-10-09] MEDS: DIVALPROEX SODIUM E.R. 500 MG TAB PO SCH (22:28)
[2016-10-09] MEDS: diphenhydrAMINE HCL 50 MG CAP PO SCH (22:28)
[2016-10-09] MEDS: DIAZEPAM 10 MG TAB PO SCH (22:28)
[2016-10-09] MEDS: ALBUTEROL SULFATE 90 MCG/ACT HFA 18 GM INHALER INH PRN (22:29)
[2016-10-09] MEDS: guaiFENesin/DEXTROMETHORPHAN 200 MG/20 MG/10 ML CUP PO PRN (22:30)
[2016-10-10] MEDS: ALBUTEROL SULFATE 90 MCG/ACT HFA 18 GM INHALER INH PRN (04:50)
[2016-10-10 05:48] VITALS: BP 126/71; PULSE 74; RESP 18; TEMP 97.4
[2016-10-10] MEDS: BETAMETHASONE/CLOTRIMAZOLE CREAM 15 GM TOPICAL SCH (08:00)
[2016-10-10] MEDS: BUDESONIDE-FORMOTEROL 160/4.5 MCG INHALER INH SCH (08:56)
[2016-10-10] MEDS: LACTULOSE SYRUP 20 GM/30 ML CUP PO SCH (08:56)
[2016-10-10] MEDS: FLUoxetine HCL 20 MG CAP PO SCH ×2 (08:57→12:43)
[2016-10-10] MEDS: POLYETHYLENE GLYCOL 17 GM PKG PO SCH (08:57)
[2016-10-10] MEDS: DIVALPROEX SODIUM E.R. 250 MG TAB PO SCH (08:57)
[2016-10-10] MEDS: FENOFIBRATE 145 MG TAB PO SCH (08:57)
[2016-10-10] MEDS: GABAPENTIN 400 MG CAP PO SCH (08:57)
[2016-10-10] MEDS: DIAZEPAM 5 MG TAB PO SCH (08:57)
[2016-10-10] MEDS: TAMSULOSIN HCL 0.4 MG CAP PO SCH (08:58)
[2016-10-10] MEDS: NICOTINE 21 MG/24 HR PATCH T-DERMAL SCH (09:00)
[2016-10-10] MEDS: REMOVE OLD PATCH T-DERMAL SCH (09:00)
[2016-10-10] MEDS ORDERED: DIAZ10 PO (11:50)
[2016-10-10] MEDS ORDERED: ARIP1TAB7 PO (11:50)
[2016-10-10] MEDS ORDERED: Lactulose Liq PO (11:50)
[2016-10-10] MEDS ORDERED: DIAZ5 PO (11:50)
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
== END 2016-10-10 15:15 | DRG 882 ==
LOC: NEPJ 15:52 → NEDA 22:51 → H260 09-27 00:10
PROVIDERS: ADMIT Psychiatry & Neurology Psychiatry; ATTEND Psychiatry & Neurology Psychiatry
DX: F43.25 Adjustment disorder with mixed disturbance of emotions and conduct (principal); F20.9 Schizophrenia, unspecified; I10 Essential (primary) hypertension; F79 Unspecified intellectual disabilities; F31.9 Bipolar disorder, unspecified; E78.00 Pure hypercholesterolemia, unspecified; J44.9 Chronic obstructive pulmonary disease, unspecified; Z79.899 Other long term (current) drug therapy; Z86.73 Personal history of transient ischemic attack (TIA), and cerebral infarction without residual deficits
CPT/HCPCS: 80053; 80061; 80164; 80307; 82140; 83036; 85025; Q0163

== ENCOUNTER 2016-10-17 16:41 | Emergency (ER) | payer MEDICARE, MEDICAID ==
[~2016-10-17] VITALS: Ht 162.6 cm; Wt 97.7 kg
[~2016-10-17 16:41] MED LIST changes: -ARIP1TAB16 PO; +ARIP1TAB7 PO; -CLOTCRE TOPICAL; -CORITAB PO; -DEXT5LIQ12 PO; +DIAZ10 PO; +DIAZ5 PO; -DIAZ5TAB PO; -HYDR-3516 PO; +Lactulose Liq PO; -TRAZ50TA12 PO
[2016-10-17 16:44] VITALS: BP 136/83; PULSE 95; RESP 18; TEMP 98.8; O2SAT 96
--- NOTE | 2016-10-17 17:15 | PD ---
Physical Exam Time Seen by Provider: 17:14 Narrative 45 y/o male with schizophrenia presents requesting psychiatry evaluation of depression. Vital signs reviewed. Seen at triage desk. Awaiting bed placement. Data Data Last Documented VS Vital Signs Date Time Temp Pulse Resp B/P Pulse Ox O2 Delivery O2 Flow Rate FiO2 10/17/16 16:44 98.8 95 18 136/83 96 Room Air MDM Medical Record Reviewed: Yes Supervised Visit with MERRILL: Murtaza Dumont Oct 17, 2016 17:15
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
[2016-10-17 19:36] LABS: AUTOMATED NEUTROPHIL # 2.5 TH/MM3 (1.8-7.7); BASOPHIL % 0.4 % (0.0-2.0); EOSINOPHIL # 0.2 TH/MM3 (0-0.4); EOSINOPHIL % 3.3 % (0.0-4.0); HEMATOCRIT 39.8 % (39.0-51.0); HEMO FLAGS DIFF FINAL; LYMPH % 35.9 % (9.0-44.0); LYMPHOCYTE # 1.8 TH/MM3 (1.0-4.8); MEAN CELL VOLUME 89.1 FL (80.0-100.0); MEAN CORPUSCULAR HEMOGLOBIN 29.3 PG (27.0-34.0); MEAN CORPUSCULAR HGB CONC 32.9 % (32.0-36.0); NEUT % 49.4 % (16.0-70.0); PLATELET COUNT 217 TH/MM3 (150-450); RED BLOOD COUNT 4.47 MIL/MM3 (4.50-5.90); RED CELL DISTRIBUTION WIDTH 13.5 % (11.6-17.2)
[2016-10-17 19:56] LABS: ANION GAP 4 MEQ/L (5-15); AST (GOT) 25 U/L (15-37); BLOOD UREA NITROGEN 17 MG/DL (7-18); CHLORIDE 112 MEQ/L (98-107); GLOMERULAR FILTRATION RATE 72 ML/MIN (>89); POTASSIUM 4.1 MEQ/L (3.5-5.1); SODIUM (NA) 144 MEQ/L (136-145)
[2016-10-17 19:58] LABS: ALT (GPT) 22 U/L (12-78)
[2016-10-17 20:00] LABS: ALKALINE PHOSPHATASE 31 U/L (45-117); TOTAL BILIRUBIN ADULT 0.2 MG/DL (0.2-1.0)
[2016-10-17 20:39] VITALS: BP 138/77; PULSE 76; RESP 18; O2SAT 97
[2016-10-17 22:11] VITALS: BP 113/57; PULSE 55; RESP 18; O2SAT 99
[2016-10-18 02:21] VITALS: BP 121/71; PULSE 52; RESP 18; O2SAT 99
[2016-10-18 05:54] VITALS: BP 115/72; PULSE 51; RESP 16; O2SAT 99
[2016-10-18 06:09] LABS: AMPHETAMINE, URINE NEG (NEG); BARBITURATES, URINE NEG (NEG); COCAINE, URINE NEG (NEG)
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
== END 2016-10-18 16:21 | disposition home or self-care (01) ==
LOC: NEPD 16:41 → NEPJ 10-18 16:21
DX: F43.25 Adjustment disorder with mixed disturbance of emotions and conduct (principal); F31.9 Bipolar disorder, unspecified; F41.9 Anxiety disorder, unspecified; I10 Essential (primary) hypertension; E78.00 Pure hypercholesterolemia, unspecified; J44.9 Chronic obstructive pulmonary disease, unspecified; J45.909 Unspecified asthma, uncomplicated; F20.9 Schizophrenia, unspecified; Z79.899 Other long term (current) drug therapy
CPT/HCPCS: 80053; 80164; 80307; 85025; 99284

== ENCOUNTER 2016-10-31 16:14 | Inpatient (IN) | payer MEDICARE, MEDICAID ==
[~2016-10-31] VITALS: Ht 165.1 cm; Wt 102.2 kg
[2016-10-31 16:16] VITALS: BP 160/73; PULSE 96; RESP 20; TEMP 98.6; O2SAT 99
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
[2016-10-31 17:27] VITALS: BP 136/79; PULSE 91; RESP 18; O2SAT 96
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
[2016-10-31 19:31] LABS: BASOPHIL % 0.3 % (0.0-2.0); EOSINOPHIL # 0.1 TH/MM3 (0-0.4); EOSINOPHIL % 2.4 % (0.0-4.0); HEMATOCRIT 38.2 % (39.0-51.0); HEMO FLAGS DIFF FINAL; LYMPH % 30.5 % (9.0-44.0); LYMPHOCYTE # 1.7 TH/MM3 (1.0-4.8); MEAN CELL VOLUME 88.1 FL (80.0-100.0); MEAN CORPUSCULAR HEMOGLOBIN 30.3 PG (27.0-34.0); MEAN CORPUSCULAR HGB CONC 34.4 % (32.0-36.0); MONO % 11.7 % (0.0-8.0); NEUT % 55.1 % (16.0-70.0); PLATELET COUNT 208 TH/MM3 (150-450); RED BLOOD COUNT 4.34 MIL/MM3 (4.50-5.90); RED CELL DISTRIBUTION WIDTH 13.6 % (11.6-17.2); WHITE BLOOD COUNT 5.5 TH/MM3 (4.0-11.0)
[2016-10-31 19:45] LABS: AMPHETAMINE, URINE NEG (NEG); BARBITURATES, URINE NEG (NEG); COCAINE, URINE NEG (NEG)
[2016-10-31 21:01] LABS: ALT (GPT) 20 U/L (12-78); ANION GAP 9 MEQ/L (5-15); BICARBONATE 25.1 MEQ/L (21.0-32.0); BLOOD UREA NITROGEN 20 MG/DL (7-18); CHLORIDE 106 MEQ/L (98-107); GLOMERULAR FILTRATION RATE 88 ML/MIN (>89); POTASSIUM 3.8 MEQ/L (3.5-5.1); SODIUM (NA) 140 MEQ/L (136-145)
[2016-10-31 21:04] LABS: ALKALINE PHOSPHATASE 35 U/L (45-117); AST (GOT) 22 U/L (15-37); TOTAL BILIRUBIN ADULT 0.3 MG/DL (0.2-1.0)
[2016-10-31 22:00] VITALS: BP 120/65; PULSE 74; RESP 17; O2SAT 97
[2016-10-31] MEDS ORDERED: NON-FORMULARY DRUG (Fluticasone-Salmeterol Inh (Advair Diskus Inh) 1 PUFF) INH SCH (22:00)
[2016-10-31] MEDS ORDERED: ALUMINUM/MAGNESIUM/SIMETH 30 ML CUP PO PRN (22:15)
[2016-10-31] MEDS ORDERED: BENZTROPINE MESYLATE 2 MG/2 ML VIAL IM PRN (22:15)
[2016-10-31] MEDS ORDERED: ALBUTEROL SULFATE 90 MCG/ACT HFA 18 GM INHALER INH PRN (22:15)
[2016-10-31] MEDS ORDERED: BENZTROPINE MESYLATE 1 MG TAB PO PRN (22:15)
[2016-10-31] MEDS ORDERED: MAGNESIUM HYDROXIDE SUSP 30 ML CUP PO PRN (22:15)
[2016-10-31] MEDS ORDERED: DICLOFENAC TOPICAL PRN (22:45)
[2016-11-01 01:14] VITALS: BP 142/76; PULSE 77; RESP 18; TEMP 97.7; O2SAT 95
[2016-11-01] MEDS ORDERED: MISCELLANEOUS NURSING INFORMATION PRN (01:45)
[2016-11-01 05:57] VITALS: BP 118/57; PULSE 71; RESP 18; TEMP 97.5; O2SAT 96
[2016-11-01] MEDS ORDERED: BETAMETHASONE/CLOTRIMAZOLE CREAM 15 GM TOPICAL SCH (08:00)
[2016-11-01] MEDS ORDERED: GABAPENTIN 400 MG CAP PO SCH (08:00)
[2016-11-01] MEDS: GABAPENTIN 400 MG CAP PO SCH ×2 (09:00→21:36)
[2016-11-01] MEDS: BETAMETHASONE/CLOTRIMAZOLE CREAM 15 GM TOPICAL SCH ×2 (09:00→21:36)
[2016-11-01] MEDS: REMOVE OLD PATCH T-DERMAL SCH (09:00)
[2016-11-01] MEDS ORDERED: DIVALPROEX SODIUM E.R. 250 MG TAB PO SCH (09:00)
[2016-11-01] MEDS: NICOTINE 21 MG/24 HR PATCH T-DERMAL SCH (09:00)
[2016-11-01] MEDS ORDERED: DIVALPROEX SODIUM E.R. 500 MG TAB PO SCH (09:00)
[2016-11-01] MEDS ORDERED: DIAZEPAM 5 MG TAB PO SCH (09:00)
[2016-11-01] MEDS: FENOFIBRATE 145 MG TAB PO SCH (09:00)
[2016-11-01] MEDS: TAMSULOSIN HCL 0.4 MG CAP PO SCH ×2 (10:47→21:37)
[2016-11-01] MEDS: FLUoxetine HCL 20 MG CAP PO SCH ×3 (10:48→18:28)
[2016-11-01] MEDS: LACTULOSE SYRUP 20 GM/30 ML CUP PO SCH (10:53)
[2016-11-01] MEDS: POLYETHYLENE GLYCOL 17 GM PKG PO SCH (10:53)
[2016-11-01] MEDS: BUDESONIDE-FORMOTEROL 160/4.5 MCG INHALER INH SCH ×2 (10:54→21:36)
[2016-11-01 10:56] LABS: ANION GAP 7 MEQ/L (5-15); BICARBONATE 26.8 MEQ/L (21.0-32.0); BLOOD UREA NITROGEN 17 MG/DL (7-18); CHLORIDE 106 MEQ/L (98-107); GLOMERULAR FILTRATION RATE 95 ML/MIN (>89); SODIUM (NA) 140 MEQ/L (136-145)
[2016-11-01 11:00] LABS: HDL CHOLESTEROL 42.3 MG/DL (40.0-60.0); LDL CHOLESTEROL 111 MG/DL (0-99)
[2016-11-01] MEDS ORDERED: ACETAMINOPHEN 500 MG PO PRN (14:45)
--- NOTE | 2016-11-01 15:00 | HHI.HP ---
Provisional Diagnosis Admission Date Oct 31, 2016 at 22:00 [place] I. 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 Express and informed consent means consent voluntarily given in writing, by a competent person, after sufficient explanation and disclosure of the subject matter involved to enable the person to make a knowing and willful decision without any element of force, fraud, deceit, duress, or other form of constraint or coercion. This person is 18 years of age or older, is not now known to be incompetent to consent to treatment with a guardian advocate, and does not have a health care surrogate or proxy currently making medical treatment decisions. I have found this person to be one of the following: [xxx] Competent to provide express and informed consent, as defined above, for voluntary admission to this facility and is competent to provide express and informed consent for treatment. He/she has the consistent capacity to make well reasoned, willful, and knowing decisions concerning his or her medical or mental health treatment. The person fully and consistently understands the purpose of the admission for examination/placement and is fully capable of personally exercising all rights assured under [place] Incompetent to provide express and informed consent to voluntary admission, and this is incompetent to provide express and informed consent to treatment. The person must be transferred to involuntary status and a petition for a guardian advocate filed with the Circuit Court. [] Refusing to provide express and informed consent to voluntary admission but is competent to provide express and informed consent for treatment. The person must be discharged or transferred to involuntary status. Form shall be completed within 24 hours of a person's arrival at the receiving facility and filed in the clinical record of each person: 1. Admitted on a voluntary basis 2. Permitted to provide express and informed consent to his/her own treatment 3. Allowed to transfer from involuntary to voluntary status 4. Prior to permitting a person to consent to his or her own treatment after having been previously found incompetent to consent to treatment. History of Present Illness Capacity: Has Capacity HPI Patient is a 45-year-old white male well-known twice a multiple prior contacts , lives in a local care home, was at group therapy here at [facility] outpatient yesterday made statements about wanting to kill of resident at the care home perhaps put a bar soap into the pillowcase and beaten to with it. Patient is brought to our ED assessed and patient was admitted on a voluntary basis. Patient does have limited intellectual capacity appears, cooperative with me today. Patient seen screened in the ED urine toxicology positive for benzodiazepines that his prescribed. Patient has had recent visits here also related to his behavior and statements made in the care home concerning threats to staff and other residents. At the present time patient resting quietly in his room on 2500 nurse Dina present throughout session patient intellectual level quite noticeable with his verbal responses. However he is alert he is oriented. He states he there is a mother male resident at this care home that upsets him intimidates them and perhaps somewhat berates him. Relating to these feelings. He states she's been compliant with his medications. These vague about any suicidality. He is vague about any vague auditory hallucinations. In any event at the present time I feel patient does meet criteria for further inpatient psychiatric assessment and perhaps medication adjustments. His Depakote level drawn in the ED came back at 53 on 7:50 AM 500 at bedtime of Depakote. We will increase the Depakote to 750 mg twice a day check a blood level on 11/04 will also discontinue his a.m. dose of Valium continue the at bedtime dose. And observe. We need to also contact via care home to verify if he is allowed [facility] not, if not we need to look for future placement Review of Systems ROS Limitations: Clinical Condition Constitutional: DENIES: Diaphoretic episodes, Fatigue, Fever, Weight gain, Weight loss, Chills, Dizziness, Change in appetite, Night Sweats Endocrine: DENIES: Heat/cold intolerance, Polydipsia, Polyuria, Polyphagia Eyes: DENIES: Blurred vision, Diplopia, Eye inflammation, Eye pain, Vision loss , Photosensitivity, Double Vision Ears, nose, mouth, throat: DENIES: Tinnitus, Hearing loss, Vertigo, Nasal discharge, Oral lesions, Throat pain, Hoarseness, Ear Pain, Running Nose, Epistaxis, Sinus Pain, Toothache, Odynophagia Respiratory: DENIES: Apneas, Cough, Snoring, Wheezing, Hemoptysis, Sputum production, Shortness of breath Cardiovascular: DENIES: Chest pain, Palpitations, Syncope, Dyspnea on Exertion , PND, Lower Extremity Edema, Orthopnea, Claudication Gastrointestinal: DENIES: Abdominal pain, Black stools, Bloody stools, Constipation, Diarrhea, Nausea, Vomiting, Difficulty Swallowing, Anorexia Integumentary: DENIES: Abnormal pigmentation, Nail changes, Pruritus, Rash Hematologic/lymphatic: DENIES: Bruising, Lymphadenopathy Immunologic/allergic: DENIES: Eczema, Urticaria Neurologic: DENIES: Abnormal gait, Headache, Localized weakness, Paresthesias, Seizures, Speech Problems, Tremor, Poor Balance Psychiatric: COMPLAINS OF: Anxiety, Hallucinations (vaguely mentions voices), Suicidal Ideation (vaguely mentions suicidality) Past Psych History Psychological trauma history Them at this and due to patient's intellectual deficit Violence risk - others (6 mos) Patient made threats of harming another resident at the care home Violence risk - self (6 mos) Low Substance Abuse History Drugs/Alcohol past 12 months Denies Past Family Social History Coded Allergies: Cantaloupe (Verified Allergy, Unknown, 09/26/16) Per MAR sent by facility. Tomato (Verified Allergy, Unknown, 09/26/16) Per MAR sent by facility. Watermelon (Verified Allergy, Unknown, 09/26/16) Per MAR sent by facility. Past Medical History Patient medically cleared ED Active Scripts [Lactulose] (Lactulose Liq)30 ML SYRP No Conflict Check30 Ml PO DAILY 15 Days Ref 1 Prov:Shayne Burt MD 10/10/16 Diazepam (Valium)10 Mg Tab10 Mg PO HS 15 Days Ref 1 Prov:Shayne Burt MD 10/10/16 Aripiprazole (Abilify)20 Mg Tab20 Mg PO DAILY 15 Days Ref 1 Prov:Shayne Burt MD 10/10/16 Gabapentin 800 Mg [id number] Mg PO BID (0800,1600) #60 TAB Ref 0 Prov:Yanick Escobar MD 09/21/16 Fluoxetine 60 Mg Tab20 Mg PO 3 times a day #90 TAB Ref 0 Prov:Yanick Escobar MD 09/21/16 Divalproex ER (Depakote ER)500 Mg [id number] Mg PO BID #60 TAB Ref 0 Prov:Yanick Escobar MD 09/21/16 Divalproex ER (Depakote ER)250 Mg [id number] Mg PO DAILY #30 TAB Ref 0 Prov:Yanick Escobar MD 09/21/16 Reported Medications Tamsulosin 0.4 Mg Cap0.4 Mg PO BID (0800,1600) Ref 0 09/21/16 Betamethasone-Clotrimazole Topical (Lotrisone Topical)1-0.05% Cream1 Applic TOPICAL BID (0800,1600) #15 GM Ref 0 09/21/16 Albuterol 8.5 GM Inh (Proair Hfa 8.5 GM Inh)90 Mcg/Act Aer2 Puff INH Q4-6H PRN ( SHORTNESS OF BREATH) Ref 0 108 mcg/actuation 09/21/16 Acetaminophen ER 8 HR (Arthritis Pain Reliever ER 8 HR)650 Mg [id number] Mg PO Q8HR PRN (PAIN) Ref 0 09/21/16 Polyethylene Glycol 3350 Powder (Miralax Powder)17 Gm Powd17 Gm PO DAILY Ref 0 Mix and dissolve one measuring cap-ful (17 grams) in water or juice. 09/21/16 Diclofenac Topical 1% Gel1 Applic TOPICAL DAILY PRN (INFLAMATION) Ref 0 08/10/16 Fluticasone-Salmeterol Inh (Advair Diskus Inh)250-50 Mcg/Blist Aer1 Puff INH BID (0800,1600) Ref 0 Rinse mouth after use. 08/01/16 Fenofibrate 160 Mg Jre125 Mg PO DAILY Ref 0 03/23/16 Discontinued Scripts Diazepam (Valium)5 Mg Tab5 Mg PO DAILY 15 Days Ref 1 Prov:Shayne Burt MD 10/10/16 Current Medications Medications (Trade) Dose Ordered Sig/Ron Route Start Time Stop Time Status Last Admin (Ventolin Hfa Inh) 2 puff Q4H PRN INH 10/31/16 22:15 (Abilify) 20 mg DAILY PO 11/01/16 09:00 11/01/16 12:37 (Valium) 5 mg DAILY PO 11/01/16 09:00 11/01/16 10:44 (Valium) 10 mg HS PO 11/01/16 21:00 (Depakote Er) 250 mg DAILY PO 11/01/16 09:00 11/01/16 10:46 (Depakote Er) 500 mg BID PO 11/01/16 09:00 11/01/16 11:00 (PROzac) 20 mg TID PO 11/01/16 09:00 11/01/16 12:40 (Miralax) 17 gm DAILY PO 11/01/16 09:00 11/01/16 10:53 (Flomax) 0.4 mg BID PO 11/01/16 09:00 11/01/16 10:47 Patient Own Medication PT OWN MED: NON-FORMULARY D... DAILY PRN TOPICAL 10/31/16 22:45 Hold (Tricor) 145 mg DAILY PO 11/01/16 09:00 11/01/16 09:00 (Lactulose Liq) 30 ml DAILY PO 11/01/16 09:00 11/01/16 10:53 (Benadryl) 50 mg HS PRN PO 10/31/16 22:15 (Tylenol) 650 mg Q4H PRN PO 10/31/16 22:15 (Milk Of Magnesia Liq) 30 ml DAILY PRN PO 10/31/16 22:15 (Mag-Al Plus Susp Liq) 30 ml Q6H PRN PO 10/31/16 22:15 (Habitrol 21 Mg Patch.24 Hr) 1 patch DAILY T-DERMAL 11/01/16 09:00 (Atarax) 50 mg Q6H PRN PO 10/31/16 22:15 (Cogentin) 1 mg Q12H PRN PO 10/31/16 22:15 (Cogentin Inj) 1 mg Q12H PRN IM 10/31/16 22:15 Miscellaneous Information 1 DAILY T-DERMAL 11/01/16 09:00 (Lotrisone Cream) 1 applic BID TOPICAL 11/01/16 09:00 11/01/16 09:00 (Neurontin) 800 mg BID PO 11/01/16 09:00 11/01/16 09:00 (Symbicort 160-4.5 Inh) 2 puff BID INH 11/01/16 09:00 11/01/16 10:54 (Pneumovax-23 Inj) 25 mcg ONCE ONCE IM 11/02/16 10:00 11/02/16 10:01 Miscellaneous Information DC FLU SHOT.... NOT AVAILABLE.... UNSCH PRN .XX 11/01/16 01:45 12/01/16 01:44 Family History Unknown at this time Social History Patient lives in care home Patient's Strengths (min. 2) Patient verbal cooperative Physical Exam Patient medically cleared in ED exam reviewed and agreed with, patient laying quietly in his bed on 2500 is in no acute distress, neck is supple, he is in no respiratory distress. Complains of no abdominal pain. Was all 4 extremities without difficulty. No abnormal motor movements noted Vital Signs Vital Signs Date Time Temp Pulse Resp B/P Pulse Ox O2 Delivery O2 Flow Rate FiO2 11/01/16 05:57 97.5 71 18 118/57 96 10/31/16 22:00 Room Air Mental Status Examination Alert oriented white male conflictual deficits quite noticeable in his verbal responses though he is cooperative with poor to fair eye contact worrying fairly strong corrective lenses Appearance Clean neatly Speech: Hesitant, Slow, Other (concrete) Orientation: x3 Memory: Unremarkable (there) Thought Process: Linear Thought Content: Paranoid (mildly) Language Poor Fund of Knowledge Poor Hallucination Type: Auditory (vague) Attention and Concentration: Other (fair) Suicidal Ideation: Yes (made vague statement) Previous Suicide Attempts: No Homicidal Ideation: Yes (made vague statements) Previous Homicide Attempts: No Insight: Poor Judgment: Poor Affect: Other (decreased range and intensity) Mood: Euthymic (to somewhat restricted) Motor Activity: Normal gait Assessment & Plan Problem List: (1) Adjustment disorder with mixed disturbance of emotions and conduct ICD Code: F43.25 (2) Intellectual disability ICD Code: F79 Assessment & Plan Estimated LOS: 5-7 days this time patient meets criteria for involuntary psychiatric hospitalization. Will adjust medications. The need to discuss with this care home his status there, we may need to look at an alternative placement. Discharge Planning To be determined Request HC Surrog/Guard Advoc?: No Valdez Bourgeois MD Nov 01, 2016 15:00
[2016-11-01 15:41] LABS: HEMOGLOBIN A1b 1.6 %; HEMOGLOBIN Ao 85.9 %; HEMOGLOBIN LA1C 1.9 %; HEMOGLOBIN P3 3.6 %
[2016-11-01 17:40] VITALS: BP 117/55; PULSE 65; RESP 18; TEMP 97; O2SAT 96
[2016-11-01] MEDS: DIVALPROEX SODIUM E.R. 250 MG TAB PO SCH (21:37)
[2016-11-01] MEDS: DIAZEPAM 10 MG TAB PO SCH (21:38)
[2016-11-02 06:55] VITALS: BP 116/68; PULSE 55; RESP 16; TEMP 97.2; O2SAT 95
[2016-11-02] MEDS: POLYETHYLENE GLYCOL 17 GM PKG PO SCH (09:00)
[2016-11-02] MEDS: BUDESONIDE-FORMOTEROL 160/4.5 MCG INHALER INH SCH ×2 (09:00→21:34)
[2016-11-02] MEDS: REMOVE OLD PATCH T-DERMAL SCH (09:00)
[2016-11-02] MEDS: BETAMETHASONE/CLOTRIMAZOLE CREAM 15 GM TOPICAL SCH ×2 (09:06→21:34)
[2016-11-02] MEDS: FLUoxetine HCL 20 MG CAP PO SCH ×3 (09:06→18:00)
[2016-11-02] MEDS: DIVALPROEX SODIUM E.R. 250 MG TAB PO SCH ×2 (09:07→21:35)
[2016-11-02] MEDS: FENOFIBRATE 145 MG TAB PO SCH (09:07)
[2016-11-02] MEDS: GABAPENTIN 400 MG CAP PO SCH ×2 (09:07→21:34)
[2016-11-02] MEDS: LACTULOSE SYRUP 20 GM/30 ML CUP PO SCH (09:08)
[2016-11-02] MEDS: TAMSULOSIN HCL 0.4 MG CAP PO SCH ×2 (09:08→21:34)
[2016-11-02] MEDS: NICOTINE 21 MG/24 HR PATCH T-DERMAL SCH (09:09)
[2016-11-02] MEDS ORDERED: PNEUMOCOCCAL POLYVALENT INJ 25 MCG/0.5 ML SYR IM ONE (10:00)
--- NOTE | 2016-11-02 14:08 | HHI.PYPN ---
Subjective Remarks Pt seen and discussed with staff. He has been calm and cooperative. He is compliant with medications and denies side effects from medication increases. No agitation or aggression on unit. No SI/HI Objective Alert: Yes [place]: Person, Place, Date Mood: Calm Affect: Restricted Memory Intact: Immediate, Recent, Remote Hallucinations: Other (no AVH) Delusions: No Delusion Type: Other (none) Suicidal: Ideation (denies) Homicidal: Ideation (john) Insight/Judgment poor Vitals/IOs Vital Signs Date Time Temp Pulse Resp B/P Pulse Ox O2 Delivery O2 Flow Rate FiO2 11/02/16 06:55 97.2 55 16 116/68 95 10/31/16 22:00 Room Air Intake and Output 11/01/16 11/01/16 11/02/16 08:00 16:00 00:00 Intake Total 360 ml 1320 ml 1320 ml Balance 360 ml 1320 ml 1320 ml Assessment & Plan Problem List: (1) Adjustment disorder with mixed disturbance of emotions and conduct ICD Code: F43.25 (2) Intellectual disability ICD Code: F79 Assessment & Plan Continue current tx plan and observation for safety considering recent aggression. Estimated LOS: days Justification for Cont. Inpt. observing for safety Request HC Surrog/Guard Advoc?: Sera Villafana MD Nov 02, 2016 14:08
[2016-11-02 18:00] VITALS: BP 110/57; PULSE 78; RESP 18; TEMP 98.7; O2SAT 96
[2016-11-02] MEDS: DIAZEPAM 10 MG TAB PO SCH (21:34)
[2016-11-02] MEDS: diphenhydrAMINE HCL 50 MG CAP PO PRN (21:35)
[2016-11-03] MEDS: hydrOXYzine HCL 50 MG TAB PO PRN (03:08)
[2016-11-03 06:00] VITALS: BP 106/56; PULSE 77; RESP 18; TEMP 97.1; O2SAT 95
[2016-11-03] MEDS: DIVALPROEX SODIUM E.R. 250 MG TAB PO SCH ×2 (08:57→20:46)
[2016-11-03] MEDS: LACTULOSE SYRUP 20 GM/30 ML CUP PO SCH (08:57)
[2016-11-03] MEDS: FLUoxetine HCL 20 MG CAP PO SCH ×3 (08:57→18:03)
[2016-11-03] MEDS: TAMSULOSIN HCL 0.4 MG CAP PO SCH ×2 (08:57→20:46)
[2016-11-03] MEDS: GABAPENTIN 400 MG CAP PO SCH ×2 (08:57→20:46)
[2016-11-03] MEDS: FENOFIBRATE 145 MG TAB PO SCH (08:57)
[2016-11-03] MEDS: POLYETHYLENE GLYCOL 17 GM PKG PO SCH (08:58)
[2016-11-03] MEDS: BETAMETHASONE/CLOTRIMAZOLE CREAM 15 GM TOPICAL SCH ×2 (08:59→21:00)
[2016-11-03] MEDS: BUDESONIDE-FORMOTEROL 160/4.5 MCG INHALER INH SCH ×2 (08:59→20:46)
[2016-11-03] MEDS: NICOTINE 21 MG/24 HR PATCH T-DERMAL SCH (09:00)
[2016-11-03] MEDS: REMOVE OLD PATCH T-DERMAL SCH (09:00)
--- NOTE | 2016-11-03 17:24 | HHI.PYPN ---
Subjective Remarks Pt seen and discussed with staff. He report poor sleep last night and that he had AH. No behavioral problems, agitation or aggression. Compliant with medications. No behavioral problems on unit. No SI/HI Objective Alert: Yes [place]: Person, Place, Date Mood: Calm Affect: Restricted Memory Intact: Immediate, Recent, Remote Hallucinations: Other (no AVH) Delusions: No Delusion Type: Other (none) Suicidal: Ideation (denies) Homicidal: Ideation (john) Insight/Judgment poor Vitals/IOs Vital Signs Date Time Temp Pulse Resp B/P Pulse Ox O2 Delivery O2 Flow Rate FiO2 11/03/16 06:00 97.1 77 18 106/56 95 10/31/16 22:00 Room Air Intake and Output 11/02/16 11/02/16 11/03/16 08:00 16:00 00:00 Intake Total 360 ml 1080 ml Balance 360 ml 1080 ml Assessment & Plan Problem List: (1) Adjustment disorder with mixed disturbance of emotions and conduct ICD Code: F43.25 (2) Intellectual disability ICD Code: F79 Assessment & Plan Continue current tx plan. Estimated LOS: days Justification for Cont. Inpt. risk of decompensation Request HC Surrog/Guard Advoc?: No Sera Levine MD Nov 03, 2016 17:24
[2016-11-03 18:31] VITALS: BP 123/66; PULSE 81; RESP 18; TEMP 98.2; O2SAT 96
[2016-11-03] MEDS: ACETAMINOPHEN 325 MG TAB PO PRN (18:39)
[2016-11-03] MEDS: diphenhydrAMINE HCL 50 MG CAP PO PRN (20:46)
[2016-11-03] MEDS: DIAZEPAM 10 MG TAB PO SCH (20:46)
[2016-11-04 07:04] VITALS: BP 99/65; PULSE 68; RESP 16; TEMP 97.6; O2SAT 99
[2016-11-04] MEDS: DIVALPROEX SODIUM E.R. 250 MG TAB PO SCH ×2 (08:26→21:12)
[2016-11-04] MEDS: FENOFIBRATE 145 MG TAB PO SCH (08:26)
[2016-11-04] MEDS: FLUoxetine HCL 20 MG CAP PO SCH ×3 (08:26→17:15)
[2016-11-04] MEDS: TAMSULOSIN HCL 0.4 MG CAP PO SCH ×2 (08:26→21:13)
[2016-11-04] MEDS: GABAPENTIN 400 MG CAP PO SCH ×2 (08:26→21:13)
[2016-11-04] MEDS: BUDESONIDE-FORMOTEROL 160/4.5 MCG INHALER INH SCH ×2 (08:27→21:00)
[2016-11-04] MEDS: POLYETHYLENE GLYCOL 17 GM PKG PO SCH (08:29)
[2016-11-04] MEDS: REMOVE OLD PATCH T-DERMAL SCH (08:29)
[2016-11-04] MEDS: LACTULOSE SYRUP 20 GM/30 ML CUP PO SCH (08:29)
[2016-11-04] MEDS: NICOTINE 21 MG/24 HR PATCH T-DERMAL SCH (08:30)
[2016-11-04] MEDS: BETAMETHASONE/CLOTRIMAZOLE CREAM 15 GM TOPICAL SCH ×2 (09:00→21:12)
--- NOTE | 2016-11-04 11:01 | PD.TTN ---
Present for Treatment Team Treatment Team Staff: Provider (Dr Bourgeois), Psych Therapist (Briana ), Occupational Therapist (Estephania) Patient Problems 1. Discharge planning 2. Medication compliance 3. Knowledge deficit 4. Lack of coping skills Progress Toward Goals Provider Input: Pt has been admitted needing a new [facility] placement Psych Therapist Input: Pt has HX of voicing homicidal ideations he is in need for [place] who will meet with patient this week Occupational Therapist Input: comes Briana Butcher [facility] Nov 04, 2016 11:01
--- NOTE | 2016-11-04 14:50 | HHI.PYPN ---
Subjective Remarks Patient seen in [place] with nurse Aaron, patient calm pleasant but quite childlike in his responses. He said he had a good conversation with his grandma and grandpa last night. He acknowledges that there . Stating that they talk nicely to him. He is compliant with medications. Though he does seem to wish to be placed in a different long term. For now continue treatment Review of Systems ROS Limitations: Altered Mental Status, Poor Historian Constitutional: DENIES: Diaphoretic episodes, Fatigue, Fever, Weight gain, Weight loss, Chills, Dizziness, Change in appetite, Night Sweats Endocrine: DENIES: Heat/cold intolerance, Polydipsia, Polyuria, Polyphagia Eyes: DENIES: Blurred vision, Diplopia, Eye inflammation, Eye pain, Vision loss , Photosensitivity, Double Vision Ears, nose, mouth, throat: DENIES: Tinnitus, Hearing loss, Vertigo, Nasal discharge, Oral lesions, Throat pain, Hoarseness, Ear Pain, Running Nose, Epistaxis, Sinus Pain, Toothache, Odynophagia Respiratory: DENIES: Apneas, Cough, Snoring, Wheezing, Hemoptysis, Sputum production, Shortness of breath Cardiovascular: DENIES: Chest pain, Palpitations, Syncope, Dyspnea on Exertion , PND, Lower Extremity Edema, Orthopnea, Claudication Gastrointestinal: DENIES: Abdominal pain, Black stools, Bloody stools, Constipation, Diarrhea, Nausea, Vomiting, Difficulty Swallowing, Anorexia Genitourinary: DENIES: Sexual dysfunction, Urinary frequency, Urinary incontinence, Urgency, Hematuria, Dysuria, Nocturia, Penile Discharge, Testicular Pain, Testicular Swelling Musculoskeletal: DENIES: Joint pain, Muscle aches, Stiffness, Joint Swelling, Back pain, Neck pain Integumentary: DENIES: Abnormal pigmentation, Nail changes, Pruritus, Rash Hematologic/lymphatic: DENIES: Bruising, Lymphadenopathy Neurologic: DENIES: Abnormal gait, Headache, Localized weakness, Paresthesias, Seizures, Speech Problems, Tremor, Poor Balance Psychiatric: DENIES: Anxiety, Confusion, Mood changes, Depression, Hallucinations, Agitation, Suicidal Ideation, Homicidal Ideation, Delusions Objective Alert: Yes [place]: Person, Place, Date Mood: Calm Affect: Restricted Memory Intact: Immediate, Recent, Remote Hallucinations: Other (no AVH) Delusions: No Delusion Type: Other (none) Suicidal: Ideation (denies) Homicidal: Ideation (john) Insight/Judgment Poor Labs Test 11/04/16 06:29 Valproic Acid (Depakene) Level 51 MCG/ML Vitals/IOs Vital Signs Date Time Temp Pulse Resp B/P Pulse Ox O2 Delivery O2 Flow Rate FiO2 11/04/16 07:04 97.6 68 16 99/65 99 10/31/16 22:00 Room Air Intake and Output 11/03/16 11/03/16 11/03/16 07:59 15:59 23:59 Intake Total 120 ml 960 ml 960 ml Balance 120 ml 960 ml 960 ml Assessment & Plan Problem List: (1) Adjustment disorder with mixed disturbance of emotions and conduct ICD Code: F43.25 (2) Intellectual disability ICD Code: F79 Assessment & Plan Estimated LOS: days patient no behavior problems on the unit, remains calm and pleasant and compliant medication. Though it appears she is anticipating placement of another long term Justification for Cont. Inpt. At this time patient may decompensate if not placed in an appropriate level of care Discharge Planning To be determined Request HC Surrog/Guard Advoc?: No Valdez Bourgeois MD Nov 04, 2016 14:50
--- NOTE | 2016-11-04 16:20 | RADRPT ---
EXAM DATE/TIME: 11/04/2016 15:15 [place] COMPARISON: CHEST SINGLE AP, March 23, 2016, 17:22. INDICATIONS : Short of breath.[facility]placement [facility]. Evaluate for pneumonia, pneumothorax or communicable di sease. MEDICAL HISTORY : Hypertension. TIA SURGICAL HISTORY : None. ENCOUNTER: Initial ACUITY: 1 day PAIN SCORE: 0/10 LOCATION: Bilateral chest FINDINGS: The lungs are clear without infiltrate, nodule, or mass. There is no appreciable pleural effusion fo r technique. Heart and mediastinum are unremarkable. CONCLUSION: No acute cardiopulmonary disease. Stephanie Koenig MD on November 04, 2016 at 16:18 Board Certified Radiologist. This report was verified electronically.
[2016-11-04 18:28] VITALS: BP 124/69; PULSE 76; RESP 18; TEMP 98.3; O2SAT 98
[2016-11-04] MEDS: DIAZEPAM 10 MG TAB PO SCH (21:13)
[2016-11-04] MEDS: diphenhydrAMINE HCL 50 MG CAP PO PRN ×2 (21:13→23:51)
[2016-11-05] MEDS: ACETAMINOPHEN 325 MG TAB PO PRN (04:38)
[2016-11-05 05:36] VITALS: BP 120/60; PULSE 66; RESP 18; TEMP 97.1; O2SAT 100
[2016-11-05] MEDS: GABAPENTIN 400 MG CAP PO SCH ×2 (08:29→21:04)
[2016-11-05] MEDS: TAMSULOSIN HCL 0.4 MG CAP PO SCH ×2 (08:29→21:05)
[2016-11-05] MEDS: DIVALPROEX SODIUM E.R. 250 MG TAB PO SCH ×2 (08:29→21:06)
[2016-11-05] MEDS: BUDESONIDE-FORMOTEROL 160/4.5 MCG INHALER INH SCH ×2 (08:29→21:06)
[2016-11-05] MEDS: FLUoxetine HCL 20 MG CAP PO SCH ×3 (08:29→17:21)
[2016-11-05] MEDS: LACTULOSE SYRUP 20 GM/30 ML CUP PO SCH (08:30)
[2016-11-05] MEDS: BETAMETHASONE/CLOTRIMAZOLE CREAM 15 GM TOPICAL SCH ×2 (08:31→21:04)
[2016-11-05] MEDS: POLYETHYLENE GLYCOL 17 GM PKG PO SCH (08:31)
[2016-11-05] MEDS: REMOVE OLD PATCH T-DERMAL SCH (08:31)
[2016-11-05] MEDS: FENOFIBRATE 145 MG TAB PO SCH (08:31)
[2016-11-05] MEDS: NICOTINE 21 MG/24 HR PATCH T-DERMAL SCH (08:31)
--- NOTE | 2016-11-05 11:45 | HHI.PYPN ---
Subjective Remarks Patient seen in [place] with medical student Mary, patient calm cooperative continues to be resistant to return to his prior placement. It appears [facility] is interested in him her awaiting word from the facility the meantime patient denies suicidality homicidality voices or visions. Compliant medications. Is been no behavioral issues Review of Systems Except as stated in HPI: all other systems reviewed are Neg Objective Alert: Yes [place]: Person, Place, Date Mood: Calm Affect: Restricted Memory Intact: Immediate, Recent, Remote Hallucinations: Other (no AVH) Delusions: No Delusion Type: Other (none) Suicidal: Ideation (denies) Homicidal: Ideation (john) Insight/Judgment Poor Vitals/IOs Vital Signs Date Time Temp Pulse Resp B/P Pulse Ox O2 Delivery O2 Flow Rate FiO2 11/05/16 05:36 97.1 66 18 120/60 100 Intake and Output 11/04/16 11/04/16 11/05/16 08:00 16:00 00:00 Intake Total 720 ml 1680 ml Balance 720 ml 1680 ml Assessment & Plan Problem List: (1) Adjustment disorder with mixed disturbance of emotions and conduct ICD Code: F43.25 (2) Intellectual disability ICD Code: F79 Assessment & Plan Estimated LOS: days patient somewhat calm today more focused, denying suicidality homicidality at this time. Continues resistant to return to his per correction but appears to may be a alternative placement. Patient's chest x -ray came back normal Justification for Cont. Inpt. This time patient will decompensate placed in a lower level of care Discharge Planning To be determined Request HC Surrog/Guard Advoc?: No Valdez Bourgeois MD Nov 05, 2016 11:45
[2016-11-05 19:40] VITALS: BP 115/67; PULSE 74; RESP 18; TEMP 97.7; O2SAT 96
[2016-11-05] MEDS: DIAZEPAM 10 MG TAB PO SCH (21:06)
[2016-11-06 04:54] VITALS: BP 127/75; PULSE 60; RESP 18; TEMP 98.6; O2SAT 96
[2016-11-06] MEDS: DIVALPROEX SODIUM E.R. 250 MG TAB PO SCH (08:48)
[2016-11-06] MEDS: LACTULOSE SYRUP 20 GM/30 ML CUP PO SCH (08:48)
[2016-11-06] MEDS: TAMSULOSIN HCL 0.4 MG CAP PO SCH (08:48)
[2016-11-06] MEDS: POLYETHYLENE GLYCOL 17 GM PKG PO SCH (08:49)
[2016-11-06] MEDS: GABAPENTIN 400 MG CAP PO SCH (08:49)
[2016-11-06] MEDS: FENOFIBRATE 145 MG TAB PO SCH (08:50)
[2016-11-06] MEDS: FLUoxetine HCL 20 MG CAP PO SCH ×2 (08:50→12:30)
[2016-11-06] MEDS: BETAMETHASONE/CLOTRIMAZOLE CREAM 15 GM TOPICAL SCH (09:00)
[2016-11-06] MEDS: NICOTINE 21 MG/24 HR PATCH T-DERMAL SCH (09:00)
[2016-11-06] MEDS: BUDESONIDE-FORMOTEROL 160/4.5 MCG INHALER INH SCH (09:00)
[2016-11-06] MEDS: REMOVE OLD PATCH T-DERMAL SCH (09:00)
[2016-11-06] MEDS: hydrOXYzine HCL 50 MG TAB PO PRN (10:37)
[2016-11-06] MEDS ORDERED: TAMS5CAP PO (14:25)
[2016-11-06] MEDS ORDERED: NEUR400C PO (14:25)
[2016-11-06] MEDS ORDERED: FENO145T2 PO (14:25)
[2016-11-06] MEDS ORDERED: POLY17S PO (14:25)
[2016-11-06] MEDS ORDERED: DIAZ10 PO (14:25)
[2016-11-06] MEDS ORDERED: SYMB160A INH (14:25)
[2016-11-06] MEDS ORDERED: DIVA250ER PO (14:25)
[2016-11-06] MEDS ORDERED: ARIP1TAB7 PO (14:25)
[2016-11-06] MEDS ORDERED: Lactulose Liq PO (14:25)
[2016-11-06] MEDS ORDERED: LOTR15T TOPICAL (14:25)
[2016-11-06] MEDS ORDERED: FLUO20CA12 PO (14:25)
--- NOTE | 2016-11-06 14:30 | HHI.DS ---
Psychiatry Discharge Summary Inpatient Psychiatric care?: Yes Advance Directive: No Reason Not Provided: Due to Patient Condition Mental Health AdvanceDirective: No Health Care Proxy: No Admission Admission Date Oct 31, 2016 at 22:00 Admission Diagnosis: (1) Adjustment disorder with mixed disturbance of emotions and conduct ICD Code: F43.25 (2) Intellectual disability ICD Code: F79 Brief History Patient is a 45-year-old white male well-known twice a multiple prior contacts , lives in a local shelter, was at group therapy here at [place] outpatient yesterday made statements about wanting to kill of resident at the shelter perhaps put a bar soap into the pillowcase and beaten to with it. Patient is brought to our ED assessed and patient was admitted on a voluntary basis. Patient does have limited intellectual capacity appears, cooperative with me today. Patient seen screened in the ED urine toxicology positive for benzodiazepines that his prescribed. Patient has had recent visits here also related to his behavior and statements made in the shelter concerning threats to staff and other residents. At the present time patient resting quietly in his room on 2500 nurse Dina present throughout session patient intellectual level quite noticeable with his verbal responses. However he is alert he is oriented. He states he there is a mother male resident at this shelter that upsets him intimidates them and perhaps somewhat berates him. Relating to these feelings. He states she's been compliant with his medications. These vague about any suicidality. He is vague about any vague auditory hallucinations. In any event at the present time I feel patient does meet criteria for further inpatient psychiatric assessment and perhaps medication adjustments. His Depakote level drawn in the ED came back at 53 on 7:50 AM 500 at bedtime of Depakote. We will increase the Depakote to 750 mg twice a day check a blood level on 11/04 will also discontinue his a.m. dose of Valium continue the at bedtime dose. And observe. We need to also contact via shelter to verify if he is allowed [facility] not, if not we need to look for future placement Tobacco Use In Past 30 Days: No Tobacco Past 30 Days Alcohol Use: Never Hospital Course Patient showed no behavioral problems from day of admission, he was calm pleasant, his mental disabilities obvious in his speech and his behaviors, but he was easily redirectable, he was calm cooperative compliant with medication. He denies suicidality homicidality voices or visions. Is excited about going to his new placement. Thus patient be discharged today Rx 1 month to follow- up under low services through that facility Results Blood Pressure 127 / 75 Vital Signs Date Time Temp Pulse Resp B/P Pulse Ox O2 Delivery O2 Flow Rate FiO2 11/06/16 04:54 98.6 60 18 127/75 96 Laboratory Results Test 11/04/16 06:29 Valproic Acid (Depakene) Level 51 MCG/ML (50-100) Summary of Procedures None done Imaging Last Impressions Chest X-Ray 11/04/16 0000 Signed Impressions: Service Date/Time: Friday, November 04, 2016 15:15 - CONCLUSION: No acute cardiopulmonary disease. Stephanie Koenig MD Pending results at discharge: No Medications # of Antipsychotic meds at D/C: 1 Approp Antipsych med options 1 - Minimum of three failed multiple trials of monotherapy. 2 - Documented plan to taper to monotherapy due to previous use of multiple meds OR cross-taper in progress at D/C. 3 - Documentation of augmentation of Clozapine. 4 - Justification other than those listed in allowable values 1-3, document here : Discharge Discharge Date: Nov 06, 2016 Discharge Diagnosis: (1) Adjustment disorder with mixed disturbance of emotions and conduct Diagnosis: Principal ICD Code: F43.25 (2) Intellectual disability Diagnosis: Secondary ICD Code: F79 Mental Status Exam at Disch Alert white male calm cooperative is normal active, his mood is euthymic with slight decrease in this range and intensity, speech is somewhat concrete and somewhat tangential, there are no auditory or visual hallucinations no delusions. Insight and judgment is poor cognition is restricted Pt Condition on Discharge: Stable Discharge Disposition: ACLF/LOU Discharge Instructions Diet Instructions: As Tolerated, No Restrictions Activities you can perform: Regular-No Restrictions Scheduled Appointment: Serge Hastings Discharge Time > 30 minutes Discharge/Advance Care Plan Health Problems: (1) Adjustment disorder with mixed disturbance of emotions and conduct (2) Intellectual disability Goals to promote your health * To prevent worsening of your condition and complications * To maintain your health at the optimal level Directions to meet your goals Take your medications as prescribed Follow your dietary instruction Follow activity as directed Keep your appointments as scheduled Take your immunizations and boosters as scheduled If your symptoms worsen call your PCP, if no PCP go to Urgent Care Center or Emergency Room For 28/10 questions related to your inpatient stay or results of tests pending at discharge, please contact Dr. Valdez Bourgeois at Smoking is Dangerous to Your Health. Avoid second hand smoking Valdez Bourgeois MD Nov 06, 2016 14:30
== END 2016-11-06 15:30 | DRG 882 ==
LOC: NEPJ 16:14 → NEDA 22:00 → H250 23:31
PROVIDERS: ADMIT Psychiatry & Neurology Psychiatry; ATTEND Psychiatry & Neurology Psychiatry
DX: F43.25 Adjustment disorder with mixed disturbance of emotions and conduct (principal); F79 Unspecified intellectual disabilities; I10 Essential (primary) hypertension; J45.909 Unspecified asthma, uncomplicated; Z23 Encounter for immunization
CPT/HCPCS: 71010; 80048; 80053; 80061; 80164; 80307; 83036; 85025; 90732; Q0163

== ENCOUNTER 2016-11-19 16:08 | Emergency (ER) | payer MEDICARE, MEDICAID ==
[~2016-11-19] VITALS: Ht 165.1 cm; Wt 113.0 kg
[~2016-11-19 16:08] MED LIST changes: -DIAZ5 PO; +FENO145T2 PO; -FENO160T PO; +FLUO20CA12 PO; -MIRA3350 PO; +NEUR400C PO; +POLY17S PO; +SYMB160A INH; -TAMS0.4C4 PO; +TAMS5CAP PO
[2016-11-19 16:09] VITALS: BP 140/69; PULSE 83; RESP 16; TEMP 98.5; O2SAT 96
--- NOTE | 2016-11-19 16:23 | PD ---
Physical Exam Date Seen by Provider: Nov 19, 2016 Time Seen by Provider: 16:21 Narrative 45 YOWM C/O RASH FOR 4 DAYS. + PURITIS. NO NEW MEDS. NO SOB VS REVIEWED AWAITING BED PLACEMENT Data Data Last Documented VS Vital Signs Date Time Temp Pulse Resp B/P Pulse Ox O2 Delivery O2 Flow Rate FiO2 11/19/16 16:09 98.5 83 16 140/69 96 Room Air MDM Supervised Visit with MERRILL: Marcus Coy Nov 19, 2016 16:23
--- NOTE | 2016-11-19 16:44 | PD ---
HPI Chief Complaint: Skin Problem Time Seen by Provider: 16:40 Travel History International Travel<30 days: No Contact w/Intl Traveler<30days: No Traveled to known affect area: No History of Present Illness HPI 45-year-old male presents emergency Department with generalized erythematous dry flaky red rash which he states present for the past couple of days. Patient lives in a [facility] nursing facility, and it is noted he is being treated with Diflucan as well as topical Nizoral cream for the past week. Patient states he did have a fever approximately 2 weeks ago with sore throat. He states for the last couple of days is rash and itching is gotten progressively worse. He tried Benadryl with no improvement. He has no other new medications or exposure history. He currently has no fever, chills, or pain. He states no difficulty swallowing, or wheezing, or shortness of breath. He has a history of allergies to Melon, tomatoes, and watermelon. He has no known drug allergies. PFSH Past Medical History Asthma: Yes Blood Disorders: No Bipolar Disorder: Yes Anxiety: Yes Cancer: No Cardiovascular Problems: Yes (HTN) High Cholesterol: Yes Chest Pain: Yes COPD: Yes Cerebrovascular Accident: Yes (TIA) Developmental Delay: Yes Diabetes: No Diminished Hearing: No Endocrine: No Gastrointestinal Disorders: No Genitourinary: Yes (RETENTION) Headaches: No Hypertension: Yes Immune Disorder: No Implanted Vascular Access Dvce: Yes Insomnia: Yes Musculoskeletal: Yes Neurologic: Yes Psychiatric: Yes (anxiety, depression, schizophrenia) Reproductive: No Respiratory: Yes (asthma) Integumentary: Yes (DERMATITIS, PRURITIS) Migraines: Yes Schizophrenia: Yes Seizures: Yes Past Surgical History Body Medical Devices: BACK RODS AND SCREWS Other Surgery: Yes Social History Alcohol Use: No Tobacco Use: No Substance Use: No Allergies-Medications (Allergen,Severity, Reaction): Coded Allergies: melon (Verified Allergy, Unknown, 11/19/16) Per MAR sent by facility. tomato (Verified Allergy, Unknown, 11/19/16) Per MAR sent by facility. watermelon (Verified Allergy, Unknown, 11/19/16) Per MAR sent by facility. Reported Meds & Prescriptions Reported Meds & Active Scripts Active Flomax (Tamsulosin HCl) 0.4 Mg Cap 0.4 Mg PO BID Polyethylene Glycol 3350 Powder (Polyethylene Glycol) 17 Gm Pow 17 Gm PO DAILY Fluoxetine (Fluoxetine HCl) 20 Mg Capsule 20 Mg PO TID Fenofibrate 145 Mg Tab 145 Mg PO DAILY Depakote ER (Divalproex Sodium) 250 Mg Melecio 750 Mg PO 3 BID Symbicort Inh (Budesonide/Formoterol Fumarate) 160-4.5 Mcg/Act Aero 2 Puff INH BID [Lactulose Liq] 30 ML Syrp 30 Ml PO DAILY 15 Days Valium (Diazepam) 10 Mg Tab 10 Mg PO HS 15 Days Abilify (Aripiprazole) 20 Mg Tab 20 Mg PO DAILY 15 Days Gabapentin 800 Mg Tab 800 Mg PO BID (0800,1600) Reported Fluconazole 100 Mg Tab 100 Mg PO DAILY Review of Systems Except as stated in HPI: all other systems reviewed are Neg General / Constitutional: No: Fever Eyes: No: Visual changes HENT: No: Headaches Cardiovascular: No: Chest Pain or Discomfort Respiratory: No: Shortness of Breath Gastrointestinal: No: Abdominal Pain Genitourinary: No: Dysuria Musculoskeletal: No: Pain Skin: Positive Rash, Positive Itching, Positive Dryness Neurologic: No: Weakness Psychiatric: No: Depression Endocrine: No: Polydipsia Hematologic/Lymphatic: No: Easy Bruising Physical Exam Narrative GENERAL: Patient appears in mild distress. SKIN: Warm and dry. Normal color. Normal turgor. Patient has generalized well demarcated erythematous rash which is dry without obvious hives, but appears angry on both lower extremities, upper extremities, and trunk. It has the appearance of probable dermatophytosis versus psoriasis type rash. HEAD: Atraumatic. Normocephalic. EYES: Pupils equal and round. No scleral icterus. No injection or drainage. ENT: No nasal bleeding or discharge. Mucous membranes pink and moist. Pharynx is clear. Airway is patent. NECK: Trachea midline. Supple nontender without lymphadenopathy. CARDIOVASCULAR: Regular rate and rhythm. RESPIRATORY: No accessory muscle use. Clear to auscultation. Breath sounds equal bilaterally. No wheezes, rales, or rhonchi. GASTROINTESTINAL: Abdomen soft, non-tender, nondistended. Hepatic and splenic margins not palpable. MUSCULOSKELETAL: Extremities without clubbing, cyanosis, or edema. No obvious deformities. NEUROLOGICAL: Awake and alert. No obvious cranial nerve deficits. Motor grossly within normal limits. Five out of 5 muscle strength in the arms and legs. Normal speech. PSYCHIATRIC: Appropriate mood and affect; insight and judgment normal. Data Data Last Documented VS Vital Signs Date Time Temp Pulse Resp B/P Pulse Ox O2 Delivery O2 Flow Rate FiO2 11/19/16 16:09 98.5 83 16 140/69 96 Room Air Orders Diphenhydramine Inj (Benadryl Inj) (11/19/16 16:45) Dexamethasone Inj (Decadron Inj) (11/19/16 16:45) Famotidine (Pepcid) (11/19/16 16:45) MDM Medical Decision Making Medical Screen Exam Complete: Yes Emergency Medical Condition: Yes Medical Record Reviewed: Yes Differential Diagnosis Generalized dermatophytosis. Eczema. Psoriatic eczema. Allergic reaction. Narrative Course Patient's felt to be medically stable at time of exam. Patient is given 10 mg Decadron IM as well as 25 mg Benadryl IM. Patient is also given Pepcid 40 mg by mouth. The patient is monitored for 40 minutes. Patient feels much improved after the above treatment. Rash appears less angry appearing. Patient will be continued on prednisone 20 mg twice a day 7 days. Patient is continued on Benadryl 25 mg every 6 hours for the next week. Patient also continued on Pepcid 20 mg twice a day for the next week. Patient should follow-up with his primary care physician in the next week to ensure continued improvement. Patient should continue his Diflucan and Nizoral lotion. Diagnosis Primary Impression: Dermatophytosis of body Additional Impressions: Eczema Qualified Code: L30.9 - Eczema, unspecified type Generalized pruritus Referrals: Primary Care Physician Patient Instructions: Acute Rash (ED), Eczema (ED), General Instructions, Tinea Corporis (ED) Additional Instructions: Patient will be continued on prednisone 20 mg twice a day 7 days. Patient is continued on Benadryl 25 mg every 6 hours for the next week. Patient also continued on Pepcid 20 mg twice a day for the next week. Patient should follow-up with his primary care physician in the next week to ensure continued improvement. Patient should continue his Diflucan and Nizoral lotion. Med/Other Pt SpecificInfo: Prescription(s) given Disposition: 01 DISCHARGE HOME Condition: Stable Dilip Frazier Nov 19, 2016 16:44
[2016-11-19] MEDS ORDERED: diphenhydrAMINE HCL 50 MG/ML VIAL IM ONE (16:45)
[2016-11-19] MEDS ORDERED: FAMOTIDINE 20 MG TAB PO ONE (16:45)
[2016-11-19] MEDS ORDERED: DEXAMETHASONE SOD PHOS 20 MG/5 ML VIAL IM ONE (16:45)
[2016-11-19] MEDS ORDERED: FLUC100T2 PO (16:53)
[2016-11-19] MEDS ORDERED: FAMO1TAB37 PO (18:02)
[2016-11-19] MEDS ORDERED: DIPH25CA PO (18:02)
[2016-11-19] MEDS ORDERED: PRED20 PO (18:02)
== END 2016-11-19 18:21 | disposition home or self-care (01) ==
LOC: NEPK 16:08
DX: B35.4 Tinea corporis (principal); L30.9 Dermatitis, unspecified; I10 Essential (primary) hypertension; E78.00 Pure hypercholesterolemia, unspecified; J45.909 Unspecified asthma, uncomplicated; F20.9 Schizophrenia, unspecified
CPT/HCPCS: 96372; 99284; J1100; J1200

== ENCOUNTER 2016-11-30 18:42 | Inpatient (IN) | payer MEDICARE, MEDICAID ==
[~2016-11-30] VITALS: Ht 165.1 cm; Wt 115.0 kg
[~2016-11-30 18:42] MED LIST changes: -ADVA250A INH; -ALBUAER3 INH; -ARTH650T6 PO; -DEPA500T3 PO; -DICL1GEL7 TOPICAL; +DIPH25CA PO; +FAMO1TAB37 PO; +FLUC100T2 PO; -FLUO60TA PO; -LOTR15T TOPICAL; -NEUR400C PO; +PRED20 PO
[2016-11-30 18:45] VITALS: BP 105/54; PULSE 118; RESP 24; TEMP 103; O2SAT 92
--- NOTE | 2016-11-30 18:57 | PD ---
HPI Chief Complaint: Cold / Flu Symptoms Time Seen by Provider: 18:56 Travel History International Travel<30 days: No Contact w/Intl Traveler<30days: No Traveled to known affect area: No History of Present Illness HPI 45-year-old male came to the emergency room with history of right flank pain that started this morning. Patient also noticed that when he was walking his right leg was hurting. When he came to the triage it was found that his temperature was 103. Patient says that he did not realize he had fever. He says last night he has been throwing up and vomited or than 20 times. Patient has significant psych disorder. No history of diarrhea. He seemed anxious and breathing fast. Patient had tachycardia as well. [facility] [place] Past Medical History Narrative Medical List of his past medical, surgical, social and family history is reviewed from the nursing note. Asthma: Yes Blood Disorders: No Bipolar Disorder: Yes Anxiety: Yes Cancer: No Cardiovascular Problems: Yes High Cholesterol: Yes Chest Pain: Yes COPD: Yes Cerebrovascular Accident: Yes (TIA) Developmental Delay: Yes Diabetes: No Diminished Hearing: No Endocrine: No Gastrointestinal Disorders: No Genitourinary: Yes (RETENTION) Headaches: No Hypertension: Yes Immune Disorder: No Implanted Vascular Access Dvce: Yes Insomnia: Yes Musculoskeletal: Yes Neurologic: Yes Psychiatric: Yes (anxiety, depression, schizophrenia) Reproductive: No Respiratory: Yes (ASTHMA) Integumentary: Yes (DERMATITIS, PRURITIS) Migraines: Yes Schizophrenia: Yes Seizures: Yes Past Surgical History Body Medical Devices: BACK RODS AND SCREWS Other Surgery: Yes Social History Alcohol Use: No Tobacco Use: No Substance Use: No Allergies-Medications (Allergen,Severity, Reaction): Coded Allergies: melon (Verified Allergy, Unknown, 11/19/16) Per MAR sent by facility. tomato (Verified Allergy, Unknown, 11/19/16) Per MAR sent by facility. watermelon (Verified Allergy, Unknown, 11/19/16) Per MAR sent by facility. Comments List of his allergies reviewed from the nursing note. Reported Meds & Prescriptions Reported Meds & Active Scripts Active Diphenhydramine (Diphenhydramine HCl) 25 Mg Cap 25 Mg PO Q6H PRN 7 Days Pepcid (Famotidine) 20 Mg Tab 20 Mg PO BID Prednisone 20 Mg Tab 20 Mg PO BID Flomax (Tamsulosin HCl) 0.4 Mg Cap 0.4 Mg PO BID Polyethylene Glycol 3350 Powder (Polyethylene Glycol) 17 Gm Pow 17 Gm PO DAILY Fluoxetine (Fluoxetine HCl) 20 Mg Capsule 20 Mg PO TID Fenofibrate 145 Mg Tab 145 Mg PO DAILY Depakote ER (Divalproex Sodium) 250 Mg Melecio 750 Mg PO 3 BID Symbicort Inh (Budesonide/Formoterol Fumarate) 160-4.5 Mcg/Act Aero 2 Puff INH BID [Lactulose Liq] 30 ML Syrp 30 Ml PO DAILY 15 Days Valium (Diazepam) 10 Mg Tab 10 Mg PO HS 15 Days Abilify (Aripiprazole) 20 Mg Tab 20 Mg PO DAILY 15 Days Gabapentin 800 Mg Tab 800 Mg PO BID (0800,1600) Reported Fluconazole 100 Mg Tab 100 Mg PO DAILY Narrative Medication List of his home medications reviewed from the nursing note. Review of Systems Except as stated in HPI: all other systems reviewed are Neg Physical Exam Narrative GENERAL: Awake, alert, anxious, moderate distress SKIN: Focused skin assessment warm/dry. Right leg distally just proximal to the ankle had a 13 x 13 mm erythematous, nonblanching, well-circumscribed rash that was maculopapular. This was warm to touch. HEAD: Atraumatic. Normocephalic. EYES: Pupils equal and round. No scleral icterus. No injection or drainage. ENT: No nasal bleeding or discharge. Dry mucous membrane and coated tongue NECK: Trachea midline. No JVD. CARDIOVASCULAR: Regular rate and rhythm. No murmur appreciated. RESPIRATORY: Tachypnea and using accessory muscles. Clear to auscultation. Breath sounds equal bilaterally. GASTROINTESTINAL: Abdomen soft, non-tender, nondistended. Hepatic and splenic margins not palpable. Right CVA tenderness MUSCULOSKELETAL: No obvious deformities. No clubbing. No cyanosis. No edema. NEUROLOGICAL: Awake and alert. No obvious cranial nerve deficits. Motor grossly within normal limits. Normal speech. PSYCHIATRIC: Appropriate mood and affect; insight and judgment normal. Data Data Last Documented VS Vital Signs Date Time Temp Pulse Resp B/P (MAP) Pulse Ox O2 Delivery O2 Flow Rate FiO2 11/30/16 20:01 102.5 108 20 139/86 (103) 95 Nasal Cannula 3.00 Orders Orders Complete Blood Count With Diff (11/30/16 19:06) Comprehensive Metabolic Panel (11/30/16 19:06) Lactic Acid Sepsis Protocol (11/30/16 19:06) Blood Culture (11/30/16 19:06) Chest, Single Ap (11/30/16 19:06) Blood Glucose (11/30/16 19:06) Ecg Monitoring (11/30/16 19:06) Iv Access Insert/Monitor (11/30/16 19:06) Oximetry (11/30/16 19:06) Oxygen Administration (11/30/16 19:06) Piperacil-Tazo 4.5 Gm Premix (Zosyn 4.5 (11/30/16 19:06) Vancomycin Inj (Vancomycin Inj) (11/30/16 19:06) Sodium Chlor 0.9% 1000 Ml Inj (Ns 1000 M (11/30/16 19:06) Sodium Chlor 0.9% 1000 Ml Inj (Ns 1000 M (11/30/16 19:06) Sodium Chlor 0.9% 1000 Ml Inj (Ns 1000 M (11/30/16 19:06) Sodium Chlor 0.9% 1000 Ml Inj (Ns 1000 M (11/30/16 19:06) Acetaminophen (Tylenol) (11/30/16 19:15) Admit Order (Ed Use Only) (11/30/16 20:36) Labs Laboratory Tests Test 11/30/16 19:15 White Blood Count 31.7 TH/MM3 Red Blood Count 4.53 MIL/MM3 Hemoglobin 12.9 GM/DL Hematocrit 41.1 % Mean Corpuscular Volume 90.7 FL Mean Corpuscular Hemoglobin 28.5 PG Mean Corpuscular Hemoglobin Concent 31.4 % Red Cell Distribution Width 14.1 % Platelet Count 228 TH/MM3 Mean Platelet Volume 9.1 FL Neutrophils (%) (Auto) 89.1 % Lymphocytes (%) (Auto) 5.1 % Monocytes (%) (Auto) 5.5 % Eosinophils (%) (Auto) 0.1 % Basophils (%) (Auto) 0.2 % Neutrophils # (Auto) 28.3 TH/MM3 Lymphocytes # (Auto) 1.6 TH/MM3 Monocytes # (Auto) 1.7 TH/MM3 Eosinophils # (Auto) 0.0 TH/MM3 Basophils # (Auto) 0.1 TH/MM3 CBC Comment AUTO DIFF Differential Total Cells Counted 100 Neutrophils % (Manual) 61 % Band Neutrophils % 29 % Lymphocytes % 6 % Monocytes % 4 % Neutrophils # (Manual) 28.5 TH/MM3 Differential Comment FINAL DIFF MANUAL Platelet Estimate NORMAL Platelet Morphology Comment NORMAL Blood Urea Nitrogen 34 MG/DL Creatinine 2.15 MG/DL Random Glucose 94 MG/DL Total Protein 6.4 GM/DL Albumin 3.3 GM/DL Calcium Level 8.1 MG/DL Alkaline Phosphatase 28 U/L Aspartate Amino Transf (AST/SGOT) 30 U/L Alanine Aminotransferase (ALT/SGPT) 25 U/L Total Bilirubin 0.8 MG/DL Sodium Level 136 MEQ/L Potassium Level 4.6 MEQ/L Chloride Level 103 MEQ/L Carbon Dioxide Level 25.6 MEQ/L Anion Gap 7 MEQ/L Estimat Glomerular Filtration Rate 34 ML/MIN Lactic Acid Level 1.9 mmol/L MDM Medical Decision Making Medical Screen Exam Complete: Yes Emergency Medical Condition: Yes Medical Record Reviewed: Yes Differential Diagnosis Sepsis, pneumonia, UTI, cellulitis Narrative Course 8:23 PM blood test results of back and patient has leukocytosis. I treated him with sepsis protocol. Lactic acid is within normal range. Patient received IV fluid and antibiotics. He is trying to give us a urine. In my opinion patient has the cellulitis of the right leg but probably has a pyelonephritis given his CVA tenderness. I would like to bring him in for further antibiotics intravenously. Critical Care Narrative Aggregate critical care time was 30 minutes. Time to perform other separately billable procedures was not included in the critical care time. My time did not include minutes spent treating any other patients simultaneously or on activities that did not directly contribute to the patient's treatment. The services I provided to this patient were to treat and/or prevent clinically significant deterioration that could result in: Sepsis, sepsis protocol I provided critical care services requiring my management, as noted below: Chart data review, documentation time, medication orders and management, vital sign assessments/reviewing monitor data, ordering and reviewing lab tests, ordering and interpreting/reviewing x-rays and diagnostic studies, care of the patient and discussion of the patient with the admitting physicians. Procedures EKG Prior to Arrival: No Sepsis Criteria SIRS Criteria (2 or more): Temp > 100.9 or < 96.8, Heart rate over 90, WBC > 51479, < 4000 or > 10% bands Sepsis Criteria (SIRS+source): Infect source susp/known Severe Sepsis (+one): Organ Dysfunction, Acute Oliguria/Renal Failure Diagnosis Primary Impression: Sepsis Qualified Codes: A41.9 - Sepsis, unspecified organism Additional Impressions: Cellulitis Qualified Codes: L03.115 - Cellulitis of right lower limb Renal insufficiency Dehydration Admitting Information Admitting Physician Requests: it Bandar Easley MD Nov 30, 2016 18:57
[2016-11-30 19:00] VITALS: PULSE 112; RESP 22; TEMP 102.5; O2SAT 90
[2016-11-30] MEDS ORDERED: SODIUM CHLOR 0.9% 1000 ML INJ 1,000 ML IV ONE ×3 (19:06)
[2016-11-30] MEDS ORDERED: SODIUM CHLOR 0.9% 1000 ML INJ 600 ML IV ONE (19:06)
[2016-11-30] MEDS ORDERED: PIPERACIL-TAZO 4.5 GM PREMIX 100 ML IV STA (19:06)
[2016-11-30] MEDS ORDERED: VANCOMYCIN INJ 1,000 MG in SODIUM CHLOR 0.9% 250 ML INJ 250 ML IV STA (19:06)
[2016-11-30] MEDS ORDERED: ACETAMINOPHEN 325 MG TAB PO ONE (19:15)
[2016-11-30 19:43] LABS: AUTOMATED NEUTROPHIL # 28.3 TH/MM3 (1.8-7.7); BASOPHIL # 0.1 TH/MM3 (0-0.2); BASOPHIL % 0.2 % (0.0-2.0); EOSINOPHIL % 0.1 % (0.0-4.0); HEMATOCRIT 41.1 % (39.0-51.0); LYMPH % 5.1 % (9.0-44.0); LYMPHOCYTE # 1.6 TH/MM3 (1.0-4.8); MEAN CELL VOLUME 90.7 FL (80.0-100.0); MEAN CORPUSCULAR HEMOGLOBIN 28.5 PG (27.0-34.0); MEAN CORPUSCULAR HGB CONC 31.4 % (32.0-36.0); MONO % 5.5 % (0.0-8.0); NEUT % 89.1 % (16.0-70.0); PLATELET COUNT 228 TH/MM3 (150-450); RED BLOOD COUNT 4.53 MIL/MM3 (4.50-5.90); RED CELL DISTRIBUTION WIDTH 14.1 % (11.6-17.2); WHITE BLOOD COUNT 31.7 TH/MM3 (4.0-11.0)
[2016-11-30 19:50] LABS: HEMO FLAGS AUTO DIFF
--- NOTE | 2016-11-30 19:54 | RADRPT ---
EXAM DATE/TIME: 11/30/2016 19:43 [facility] COMPARISON: CHEST SINGLE AP, November 04, 2016, 15:15. INDICATIONS : Chest pain , shortness of breath and fever 103. MEDICAL HISTORY : Hypertension. SURGICAL HISTORY : Fusion, lumbar. ENCOUNTER: Initial ACUITY: 3 days PAIN SCORE: 6/10 LOCATION: Bilateral upper chest FINDINGS: Streakiness is noted within the left lung base consistent with atelectasis and/or mild infiltrate. T he heart is stable. The right lung is clear. No pulmonary edema is noted. CONCLUSION: Left basilar streakiness consistent with atelectasis and/or mild infiltrate. Clinical correlation is recommended. Gopal Cash MD on November 30, 2016 at 19:51 Board Certified Radiologist. This report was verified electronically.
[2016-11-30 20:01] VITALS: BP 139/86; PULSE 108; RESP 20; TEMP 102.5; O2SAT 95
[2016-11-30 20:07] LABS: ANION GAP 7 MEQ/L (5-15); AST (GOT) 30 U/L (15-37); BICARBONATE 25.6 MEQ/L (21.0-32.0); BLOOD UREA NITROGEN 34 MG/DL (7-18); CHLORIDE 103 MEQ/L (98-107); GLOMERULAR FILTRATION RATE 34 ML/MIN (>89); POTASSIUM 4.6 MEQ/L (3.5-5.1); SODIUM (NA) 136 MEQ/L (136-145)
[2016-11-30 20:10] LABS: ALKALINE PHOSPHATASE 28 U/L (45-117); ALT (GPT) 25 U/L (12-78); TOTAL BILIRUBIN ADULT 0.8 MG/DL (0.2-1.0)
[2016-11-30] MEDS ORDERED: SODIUM CHLORIDE 0.9% FLUSH 10 ML FLUSH IV FLUSH PRN (20:45)
[2016-11-30] MEDS ORDERED: LACTULOSE SYRUP 20 GM/30 ML CUP PO PRN (20:45)
[2016-11-30] MEDS ORDERED: BISACODYL 10 MG SUPP RECTAL PRN (20:45)
[2016-11-30] MEDS ORDERED: SENNOSIDES 8.6 MG TAB PO PRN (20:45)
[2016-11-30] MEDS ORDERED: ONDANSETRON HCL 4 MG/2 ML VIAL IVP PRN (20:45)
[2016-11-30] MEDS ORDERED: ACETAMINOPHEN/HYDROcodone 325 MG/5 MG TAB PO PRN (20:45)
[2016-11-30] MEDS ORDERED: NALOXONE HCL 0.4 MG/ML AMP IV PRN (20:45)
[2016-11-30] MEDS ORDERED: MAGNESIUM HYDROXIDE SUSP 30 ML CUP PO PRN (20:45)
[2016-11-30] MEDS ORDERED: ACETAMINOPHEN 325 MG TAB PO PRN (20:45)
[2016-11-30 20:48] LABS: BANDS 29 % (0-6); NEUTROPHIL # MANUAL DIFF 28.5 TH/MM3 (1.8-7.7); POLYS (SEG NEUTROPHILS) 61 % (16-70); WBC DIFF SAMPLE 100
[2016-11-30 20:50] LABS: PLATELET ESTIMATE SMEAR NORMAL (NORMAL); PLATELET MORPHOLOGY NORMAL (NORMAL); SCAN/DIFF FINAL DIFF MANUAL
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
[2016-11-30 20:54] VITALS: BP 100/54; PULSE 93; RESP 20; TEMP 100.9; O2SAT 96
[2016-11-30] MEDS: DOCUSATE SODIUM 50 MG/SENNA 8.6 MG TAB PO SCH (21:00)
[2016-11-30] MEDS: SODIUM CHLORIDE 0.9% FLUSH 10 ML FLUSH IV FLUSH SCH (21:00)
[2016-11-30] MEDS: SODIUM CHLOR 0.9% 1000 ML INJ 1,000 ML IV SCH (21:05)
[2016-11-30] MEDS: HEPARIN SODIUM - SQ 10,000 UNITS/ML VIAL SQ SCH (21:06)
[2016-11-30] MEDS ORDERED: diphenhydrAMINE HCL 25 MG CAP PO PRN (22:00)
--- NOTE | 2016-11-30 22:01 | RADRPT ---
EXAM DATE/TIME: 11/30/2016 21:25 [place] COMPARISON: US KIDNEY/RENAL/BLADDER, September 04, 2015, 21:20. INDICATIONS : Increased BUN/Creatinine. MEDICAL HISTORY : Stroke. Hypercholesterolemia. Hypertension. Glasses. Seizures. Migraine. Facial numbness. Chest pain. COPD. Asthma. Dyspnea. Anxiety. Depression. Schizophrenia. Bipolar disorder. Dermatitis. Pruritis. SURGICAL HISTORY : Lower back surgery. Bilateral shoulder surgery. ENCOUNTER: Initial ACUITY: 1 day PAIN SCORE: 1/10 LOCATION: Bilateral flank MEASUREMENTS: RIGHT KIDNEY: 11.1 x 4.5 x 5.8 cm LEFT KIDNEY: 11.4 x 4.9 x 5.9 cm FINDINGS: RIGHT KIDNEY: Renal cortex is normal in thickness and echotexture. No hydronephrosis, stone, or mass. LEFT KIDNEY: Renal cortex is normal in thickness and echotexture. No hydronephrosis, stone, or mass. BLADDER: Within normal limits given the degree of distension. CONCLUSION: No acute disease. Gopal Cash MD on November 30, 2016 at 21:59 Board Certified Radiologist. This report was verified electronically.
[2016-11-30 22:29] VITALS: BP 117/56; PULSE 86; RESP 18; TEMP 98.9; O2SAT 96
[2016-11-30] MEDS: FAMOTIDINE 20 MG TAB PO SCH (22:48)
[2016-11-30] MEDS: DIVALPROEX SODIUM E.R. 250 MG TAB PO SCH (22:49)
[2016-12-01] MEDS: PIPERACIL-TAZO 2.25 GM PREMIX 50 ML IV SCH ×4 (02:04→21:54)
[2016-12-01 03:21] VITALS: BP 113/65; PULSE 92; RESP 18; TEMP 98.1; O2SAT 97
[2016-12-01 07:24] VITALS: BP 114/58; PULSE 98; RESP 22; TEMP 102.3; O2SAT 95
[2016-12-01] MEDS: ACETAMINOPHEN 325 MG TAB PO PRN ×2 (07:46→21:47)
[2016-12-01] MEDS: BUDESONIDE-FORMOTEROL 160/4.5 MCG INHALER INH SCH ×2 (07:46→21:45)
[2016-12-01] MEDS: SODIUM CHLOR 0.9% 1000 ML INJ 1,000 ML IV SCH ×2 (07:46→18:15)
[2016-12-01] MEDS: GABAPENTIN 400 MG CAP PO SCH ×2 (07:47→15:15)
[2016-12-01] MEDS: TAMSULOSIN HCL 0.4 MG CAP PO SCH ×2 (07:47→21:47)
[2016-12-01] MEDS: DOCUSATE SODIUM 50 MG/SENNA 8.6 MG TAB PO SCH ×2 (07:47→21:00)
[2016-12-01] MEDS: FAMOTIDINE 20 MG TAB PO SCH ×2 (07:47→21:47)
[2016-12-01] MEDS: DIVALPROEX SODIUM E.R. 250 MG TAB PO SCH ×2 (07:47→21:46)
[2016-12-01] MEDS: FENOFIBRATE 145 MG TAB PO SCH (07:47)
[2016-12-01] MEDS: FLUoxetine HCL 20 MG CAP PO SCH ×3 (07:47→18:15)
[2016-12-01] MEDS: SODIUM CHLORIDE 0.9% FLUSH 10 ML FLUSH IV FLUSH SCH ×2 (07:48→21:00)
[2016-12-01] MEDS: HEPARIN SODIUM - SQ 10,000 UNITS/ML VIAL SQ SCH ×2 (07:48→21:46)
[2016-12-01 09:00] VITALS: TEMP 100.5
[2016-12-01 09:16] LABS: AUTOMATED NEUTROPHIL # 19.2 TH/MM3 (1.8-7.7); BASOPHIL # 0.1 TH/MM3 (0-0.2); BASOPHIL % 0.2 % (0.0-2.0); EOSINOPHIL % 0.1 % (0.0-4.0); HEMATOCRIT 36.4 % (39.0-51.0); HEMO FLAGS DIFF FINAL; LYMPH % 5.1 % (9.0-44.0); LYMPHOCYTE # 1.1 TH/MM3 (1.0-4.8); MEAN CELL VOLUME 91.6 FL (80.0-100.0); MEAN CORPUSCULAR HEMOGLOBIN 28.4 PG (27.0-34.0); MONO % 4.2 % (0.0-8.0); NEUT % 90.4 % (16.0-70.0); PLATELET COUNT 169 TH/MM3 (150-450); RED BLOOD COUNT 3.97 MIL/MM3 (4.50-5.90); RED CELL DISTRIBUTION WIDTH 14.8 % (11.6-17.2); WHITE BLOOD COUNT 21.3 TH/MM3 (4.0-11.0)
[2016-12-01 10:16] LABS: BICARBONATE 25.5 MEQ/L (21.0-32.0); POTASSIUM 3.8 MEQ/L (3.5-5.1)
--- NOTE | 2016-12-01 11:05 | HHI.PR ---
Subjective History of Present Illness Resting in bed slightly lethargic but arousable Right leg pain is ok No cough or sputum No N/V poor appetite No abd pain No diarrhea No dysuria Offers no other c/o Vitals/Results Vital Signs Vital Signs Date Time Temp Pulse Resp B/P (MAP) Pulse Ox O2 Delivery O2 Flow Rate FiO2 12/01/16 09:00 100.5 12/01/16 07:24 102.3 98 22 114/58 (76) 95 12/01/16 03:21 98.1 92 18 113/65 (81) 97 11/30/16 22:29 98.9 86 18 117/56 (76) 96 11/30/16 20:54 100.9 93 20 100/54 (69) 96 Nasal Cannula 3.00 11/30/16 20:01 102.5 108 20 139/86 (103) 95 Nasal Cannula 3.00 11/30/16 19:55 11/30/16 19:34 108 22 95 Nasal Cannula 3.00 11/30/16 19:00 95 Nasal Cannula 3.00 11/30/16 19:00 102.5 112 22 90 Room Air 11/30/16 18:45 103.0 118 24 105/54 (71) 92 Room Air CBC/BMP: 12/01/16 0811 12/01/16 0811 Lab Results Laboratory Tests Test 11/30/16 19:15 12/01/16 08:11 White Blood Count 31.7 TH/MM3 21.3 TH/MM3 Red Blood Count 4.53 MIL/MM3 3.97 MIL/MM3 Hemoglobin 12.9 GM/DL 11.3 GM/DL Hematocrit 41.1 % 36.4 % Mean Corpuscular Volume 90.7 FL 91.6 FL Mean Corpuscular Hemoglobin 28.5 PG 28.4 PG Mean Corpuscular Hemoglobin Concent 31.4 % 31.0 % Red Cell Distribution Width 14.1 % 14.8 % Platelet Count 228 TH/MM3 169 TH/MM3 Mean Platelet Volume 9.1 FL 9.1 FL Neutrophils (%) (Auto) 89.1 % 90.4 % Lymphocytes (%) (Auto) 5.1 % 5.1 % Monocytes (%) (Auto) 5.5 % 4.2 % Eosinophils (%) (Auto) 0.1 % 0.1 % Basophils (%) (Auto) 0.2 % 0.2 % Neutrophils # (Auto) 28.3 TH/MM3 19.2 TH/MM3 Lymphocytes # (Auto) 1.6 TH/MM3 1.1 TH/MM3 Monocytes # (Auto) 1.7 TH/MM3 0.9 TH/MM3 Eosinophils # (Auto) 0.0 TH/MM3 0.0 TH/MM3 Basophils # (Auto) 0.1 TH/MM3 0.1 TH/MM3 CBC Comment AUTO DIFF DIFF FINAL Differential Total Cells Counted 100 Neutrophils % (Manual) 61 % Band Neutrophils % 29 % Lymphocytes % 6 % Monocytes % 4 % Neutrophils # (Manual) 28.5 TH/MM3 Differential Comment FINAL DIFF MANUAL Platelet Estimate NORMAL Platelet Morphology Comment NORMAL Blood Urea Nitrogen 34 MG/DL 21 MG/DL Creatinine 2.15 MG/DL 1.17 MG/DL Random Glucose 94 MG/DL 76 MG/DL Total Protein 6.4 GM/DL Albumin 3.3 GM/DL Calcium Level 8.1 MG/DL 7.9 MG/DL Alkaline Phosphatase 28 U/L Aspartate Amino Transf (AST/SGOT) 30 U/L Alanine Aminotransferase (ALT/SGPT) 25 U/L Total Bilirubin 0.8 MG/DL Sodium Level 136 MEQ/L 141 MEQ/L Potassium Level 4.6 MEQ/L 3.8 MEQ/L Chloride Level 103 MEQ/L 107 MEQ/L Carbon Dioxide Level 25.6 MEQ/L 25.5 MEQ/L Anion Gap 7 MEQ/L 9 MEQ/L Estimat Glomerular Filtration Rate 34 ML/MIN 68 ML/MIN Lactic Acid Level 1.9 mmol/L Microbiology Microbiology 11/30/16 Aerobic Blood Culture, Received Pending 11/30/16 Anaerobic Blood Culture, Received Pending 11/30/16 Aerobic Blood Culture, Received Pending 11/30/16 Anaerobic Blood Culture, Received Pending Physical Exam General General Appearance: No Acute Distress, Comfortable, Obese Eyes Eye Exam: Pupils Equal, Sclera White Ears & Nose Ears & Nose Exam: Nasal Mucosa Dilley Throat Throat Exam: Oral Mucosa Dilley & Moist Neck Neck Exam: Neck Supple, Trachea Midline Pulmonary Resp Exam: Clear Bilaterally, Breath Sounds Equal, No Distress Cardiology CV Exam: Regular, Normal Sinus Rhythm Gastrointestinal/Abdomen GI Exam: Soft, Non-Tender, Bowel Sounds Present Musculoskeletal MS Remarks swelling /redness , warmth & tenderness RLExt , no blister, no ulcers Integumentary Skin Exam: Warm, Dry Neurologic Neuro Exam: Alert, Awake, Oriented, Speech Clear, Moving All Extremities Psychiatric Psych Exam: Appropriate Responses VTE Prophylaxis VTE Prophylaxis Meds: Heparin PUD Prophylasis PUD Prophylaxis: Zantac Assessment/Plan Assessment/Plan Problem List: (1) Sepsis (2) ARF (acute Renal Failure) (3) Cellulitis (4) Schizophrenia (5) Bipolar 1 disorder (6) Depression (7) Urinary retention Assessment and Plan 45-year-old male who presented with nausea, vomiting, chills. Found with cellulitis to the right leg, sepsis with tachycardia and fever. Sepsis, possibly secondary to cellulitis Leukocytosis with bandemia -Continue with antibiotics -f/u blood cultures, urine c/s . -Continue with IV fluids -Antipyretics as needed for fever -f/u CBC Urinary retention, right flank pain, possible pyelonephritis -UA still pending Acute kidney injury, elevated BUN and creatinine which is a new finding. -Renal ultrasound -Continue with IV fluids -Repeat BMP in the morning -Avoid nephrotoxic agent Bipolar Schizophrenia Depression -Continue home medication, cont depakote, f/u depakote level Home medications reviewed, initiated as indicated Heparin for DVT prophylaxis Pepcid for GI prophylaxis Wally Lutz MD Dec 01, 2016 11:05
[2016-12-01 15:49] VITALS: BP 120/66; PULSE 86; RESP 18; TEMP 99.9; O2SAT 98
[2016-12-01 19:31] VITALS: BP 120/64; PULSE 87; RESP 20; TEMP 101.7; O2SAT 96
[2016-12-01] MEDS: DIAZEPAM 10 MG TAB PO SCH (21:47)
[2016-12-02] VITALS (7 sets, daily range): BP systolic 111–125; BP diastolic 58–72; PULSE 42–89; RESP 18–22; TEMP 97.9–100.4; O2SAT 95–99
[2016-12-02] MEDS: SODIUM CHLOR 0.9% 1000 ML INJ 1,000 ML IV SCH ×3 (02:45→22:45)
[2016-12-02] MEDS: PIPERACIL-TAZO 2.25 GM PREMIX 50 ML IV SCH ×2 (02:49→08:18)
[2016-12-02 05:33] LABS: HEMATOCRIT 32.8 % (39.0-51.0); MEAN CELL VOLUME 91.3 FL (80.0-100.0); MEAN CORPUSCULAR HEMOGLOBIN 29.7 PG (27.0-34.0); MEAN CORPUSCULAR HGB CONC 32.6 % (32.0-36.0); PLATELET COUNT 138 TH/MM3 (150-450); RED BLOOD COUNT 3.59 MIL/MM3 (4.50-5.90); RED CELL DISTRIBUTION WIDTH 14.4 % (11.6-17.2); REVIEW FLAG FINAL; WHITE BLOOD COUNT 16.5 TH/MM3 (4.0-11.0)
[2016-12-02 05:59] LABS: BICARBONATE 26.9 MEQ/L (21.0-32.0); POTASSIUM 3.9 MEQ/L (3.5-5.1)
--- NOTE | 2016-12-02 07:32 | HHI.PR ---
Subjective Subjective Remarks denies any acute pain no cough Right lower extremity edema 2+, cellulitis, leg elevated Low-grade fever Bowel regimen normal (Skye Guerrero) Review of Systems Constitutional Constitutional: Fatigue, Weakness Constitutional Remarks 10 point ROS done positives noted (Skye Guerrero) GI/Abdomen GI/Abdomen Remarks Obese (Skye Guerrero) Musculoskeletal MS: Weakness, Stiffness (right lower extremity) (Skye Guerrero) Integumentary Skin: Rash (cellulitis) (Skye Guerrero) Psychiatric Psychiatric: Normal Mood (Skye Guerrero) Vitals/Results Vital Signs Vital Signs Date Time Temp Pulse Resp B/P (MAP) Pulse Ox O2 Delivery O2 Flow Rate FiO2 12/02/16 03:15 98.0 42 18 118/67 (84) 99 12/02/16 00:20 100.4 89 18 123/58 (79) 97 12/01/16 19:31 101.7 87 20 120/64 (82) 96 12/01/16 15:49 99.9 86 18 120/66 (84) 98 12/01/16 09:00 100.5 (Skye Guerrero) CBC/BMP: 12/02/16 0515 12/02/16 0515 Lab Results Laboratory Tests Test 12/01/16 08:11 12/02/16 05:15 White Blood Count 21.3 TH/MM3 16.5 TH/MM3 Red Blood Count 3.97 MIL/MM3 3.59 MIL/MM3 Hemoglobin 11.3 GM/DL 10.7 GM/DL Hematocrit 36.4 % 32.8 % Mean Corpuscular Volume 91.6 FL 91.3 FL Mean Corpuscular Hemoglobin 28.4 PG 29.7 PG Mean Corpuscular Hemoglobin Concent 31.0 % 32.6 % Red Cell Distribution Width 14.8 % 14.4 % Platelet Count 169 TH/MM3 138 TH/MM3 Mean Platelet Volume 9.1 FL 9.0 FL Neutrophils (%) (Auto) 90.4 % Lymphocytes (%) (Auto) 5.1 % Monocytes (%) (Auto) 4.2 % Eosinophils (%) (Auto) 0.1 % Basophils (%) (Auto) 0.2 % Neutrophils # (Auto) 19.2 TH/MM3 Lymphocytes # (Auto) 1.1 TH/MM3 Monocytes # (Auto) 0.9 TH/MM3 Eosinophils # (Auto) 0.0 TH/MM3 Basophils # (Auto) 0.1 TH/MM3 CBC Comment DIFF FINAL Differential Comment Blood Urea Nitrogen 21 MG/DL 18 MG/DL Creatinine 1.17 MG/DL 1.01 MG/DL Random Glucose 76 MG/DL 91 MG/DL Calcium Level 7.9 MG/DL 8.7 MG/DL Sodium Level 141 MEQ/L 139 MEQ/L Potassium Level 3.8 MEQ/L 3.9 MEQ/L Chloride Level 107 MEQ/L 106 MEQ/L Carbon Dioxide Level 25.5 MEQ/L 26.9 MEQ/L Anion Gap 9 MEQ/L 6 MEQ/L Estimat Glomerular Filtration Rate 68 ML/MIN 80 ML/MIN Valproic Acid (Depakene) Level 69 MCG/ML Imaging Remarks Last Impressions Chest X-Ray 11/30/16 1906 Signed Impressions: Service Date/Time: Wednesday, November 30, 2016 19:43 - CONCLUSION: Left basilar streakiness consistent with atelectasis and/or mild infiltrate. Clinical correlation is recommended. Gopal Cash MD Renal Ultrasound 11/30/16 0000 Signed Impressions: Service Date/Time: Wednesday, November 30, 2016 21:25 - CONCLUSION: No acute disease. Gopal Cash MD (Skye Guerrero) Physical Exam General General Appearance: No Acute Distress, Comfortable, Obese (Skye GuerreroP) Eyes Eye Exam: Pupils Equal, Sclera White (Skye Guerrero. TEXTILE CUTTING MACHINE OPERATOR) Ears & Nose Ears & Nose Exam: Nasal Mucosa [place] (Skye Guerrero M. TEXTILE CUTTING MACHINE OPERATOR) Throat Throat Exam: Oral Mucosa [place] & Moist (Skye Guerrero M. TEXTILE CUTTING MACHINE OPERATOR) Neck Neck Exam: Neck Supple, Trachea Midline (Skye Guerrero M. TEXTILE CUTTING MACHINE OPERATOR) Pulmonary Resp Exam: Clear Bilaterally, Breath Sounds Equal, No Distress, Diminished Breath Sounds (special attention to left base) (Skye Guerrero M. TEXTILE CUTTING MACHINE OPERATOR) Cardiology CV Exam: Regular, Normal Sinus Rhythm, Arrhythmia (patient denies any chest pain or dizziness, noted on vital sign sheet pulse 42?, Will place patient on telemetry) (Skye Guerrero) Gastrointestinal/Abdomen GI Exam: Soft, Non-Tender, Bowel Sounds Present (Skey Guerrero) Integumentary Skin Exam: Warm, Dry (Skye Guerrero) Neurologic Neuro Exam: Alert, Awake, Oriented, Speech Clear, Moving All Extremities (Skye Guerrero) Psychiatric Psych Exam: Appropriate Responses (Skye Guerrero) VTE Prophylaxis VTE Prophylaxis Meds: Heparin (Skye Guerrero) PUD Prophylasis PUD Prophylaxis: Zantac (Skye Guerrero) Assessment/Plan Assessment/Plan Problem List: (1) Sepsis (2) ARF (acute Renal Failure) (3) Cellulitis (4) Schizophrenia (5) Bipolar 1 disorder (6) Depression (7) Urinary retention 8. Possible bradycardia Assessment and Plan Sepsis, possibly secondary to cellulitis Leukocytosis mild improvement 16.5 -Continue with antibiotics -f/u blood cultures, urine c/s , pending negative so far. IV fluids, gentle hydration fever management and monitor, still showing some low-grade over the past 24 hours, no cough Anemia, possible secondary to chronic disease follow CBC Urinary retention, right flank pain, possible pyelonephritis Culture pending and UA, will review pending order. Acute kidney injury, improving with IV hydration, Renal ultrasound, normal -Avoid nephrotoxic agent Bipolar Schizophrenia Depression -Continue home medication, cont depakote, f/u depakote level Heparin for DVT prophylaxis Pepcid for GI prophylaxis Discussed with patient Discussed with nurse Discussed with Dr. Lutz, seen on his behalf (Skye Guerrero) Assessment/Plan lATE ENTRY pt was seen & examined yesterday AM / forgot to sign d/w PT d/w Skye wise w above d/w PT's RN see orders will f/u (Wally Lutz MD) Skye Guerrero Dec 02, 2016 07:32 Wally Lutz MD Dec 03, 2016 11:23
[2016-12-02] MEDS: GABAPENTIN 400 MG CAP PO SCH ×2 (08:13→16:32)
[2016-12-02] MEDS: HEPARIN SODIUM - SQ 10,000 UNITS/ML VIAL SQ SCH ×2 (08:13→21:41)
[2016-12-02] MEDS: BUDESONIDE-FORMOTEROL 160/4.5 MCG INHALER INH SCH ×2 (08:14→22:14)
[2016-12-02] MEDS: SODIUM CHLORIDE 0.9% FLUSH 10 ML FLUSH IV FLUSH SCH ×2 (08:19→21:00)
[2016-12-02] MEDS: FAMOTIDINE 20 MG TAB PO SCH ×2 (09:11→21:56)
[2016-12-02] MEDS: DIVALPROEX SODIUM E.R. 250 MG TAB PO SCH ×2 (09:11→21:55)
[2016-12-02] MEDS: FENOFIBRATE 145 MG TAB PO SCH (09:11)
[2016-12-02] MEDS: FLUoxetine HCL 20 MG CAP PO SCH ×3 (09:11→17:28)
[2016-12-02] MEDS: TAMSULOSIN HCL 0.4 MG CAP PO SCH ×2 (09:11→21:55)
[2016-12-02] MEDS: DOCUSATE SODIUM 50 MG/SENNA 8.6 MG TAB PO SCH ×2 (09:12→21:56)
[2016-12-02] MEDS ORDERED: VANCOMYCIN INJ 1,000 MG in SODIUM CHLOR 0.9% 250 ML INJ 250 ML IV SCH (11:00)
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
[2016-12-02] MEDS: ceFAZolin 2 GM PREMIX 50 ML IV SCH ×2 (13:50→22:06)
[2016-12-02 14:15] LABS: BLOOD, URINE SMALL (NEG); COMMENT (UR) CULT NOT INDICATED; CULTURE IF INDICATED CULT NOT INDICATED; GLUCOSE,URINE NEG (NEG); KETONE, URINE NEG (NEG); MUCUS URINE FEW /lpf (OCC); NITRITE,URINE NEG (NEG); URINE COLOR YELLOW (YELLW/STRAW)
[2016-12-02] MEDS: DIAZEPAM 10 MG TAB PO SCH (21:56)
[2016-12-03] VITALS (8 sets, daily range): BP systolic 112–134; BP diastolic 51–87; PULSE 64–76; RESP 18–21; TEMP 97.6–98; O2SAT 89–99
[2016-12-03] MEDS: ceFAZolin 2 GM PREMIX 50 ML IV SCH ×4 (05:49→23:55)
[2016-12-03] MEDS: SODIUM CHLOR 0.9% 1000 ML INJ 1,000 ML IV SCH ×2 (07:28→18:08)
--- NOTE | 2016-12-03 07:28 | HHI.PR ---
Subjective Subjective Remarks denies any acute pain Right lower extremity edema 2+, cellulitis, leg elevated, mild improvement noted Urinary retention requiring Coude catheterization 1 yesterday, hasn't voided one time on his own States he has had problems with voiding in the past (Barbara Guerrero) Review of Systems Constitutional Constitutional: Fatigue, Weakness Constitutional Remarks 10 point ROS done positives noted Afebrile (Barbara Guerrero) GI/Abdomen GI/Abdomen Remarks Obese (Barbara Guerrero) Musculoskeletal MS: Weakness, Stiffness (right lower extremity) (Barbara Guerrero) Integumentary Skin: Rash (cellulitis) Skin Remarks Right lower leg with mild gradual improvement (Barbara Guerrero) Psychiatric Psychiatric: Normal Mood (Barbara Guerrero) Vitals/Results Vital Signs Vital Signs Date Time Temp Pulse Resp B/P (MAP) Pulse Ox O2 Delivery O2 Flow Rate FiO2 12/03/16 03:34 98.0 65 20 134/68 (90) 99 12/03/16 01:01 71 12/03/16 00:10 97.9 76 19 113/65 (81) 96 12/02/16 19:41 98.2 69 20 125/68 (87) 95 12/02/16 16:38 97.9 69 18 111/66 (81) 99 12/02/16 15:00 74 12/02/16 11:31 99.5 76 22 116/72 (87) 96 12/02/16 07:35 98.4 80 18 118/68 (85) 97 (Barbara Guerrero) CBC/BMP: 12/02/16 0515 12/02/16 0515 Lab Results Laboratory Tests Test 12/02/16 13:05 Urine Color YELLOW Urine Turbidity CLEAR Urine pH 6.0 Urine Specific [place] 1.020 Urine Protein NEG mg/dL Urine Glucose (UA) NEG mg/dL Urine Ketones NEG mg/dL Urine Occult Blood SMALL Urine Nitrite NEG Urine Bilirubin NEG Urine Urobilinogen 2.0 MG/DL Urine Leukocyte Esterase NEG Urine RBC 2 /hpf Urine WBC LESS THAN 1 /hpf Urine Mucus FEW /lpf Microscopic Urinalysis Comment CULT NOT INDICATED Imaging Remarks Last Impressions Chest X-Ray 8/26/17 1906 Signed Impressions: Service Date/Time: Wednesday, November 30, 2016 19:43 - CONCLUSION: Left basilar streakiness consistent with atelectasis and/or mild infiltrate. Clinical correlation is recommended. Gopal Cash MD Renal Ultrasound 11/30/16 0000 Signed Impressions: Service Date/Time: Wednesday, November 30, 2016 21:25 - CONCLUSION: No acute disease. Gopal Cash MD Current Medications Administered Medications Medications (Trade) Dose Ordered Sig/Ron Route PRN Reason Start Time Stop Time Status Last Admin Dose Admin Sodium Chloride 1,000 ml @ 100 mls/hr Q10H IV 11/30/16 20:45 12/03/16 07:28 Sodium Chloride (NS Flush) 2 ml BID IV FLUSH 11/30/16 21:00 12/01/16 07:48 Acetaminophen (Tylenol) 650 mg Q4H PRN PO TEMP > 100.4 11/30/16 20:45 12/01/16 21:47 Heparin Sodium (Porcine) (Heparin Inj) 5,000 units Q12H SQ 11/30/16 20:45 12/02/16 21:41 Senna/Docusate Sodium (Chely-Colace) 1 tab BID PO 11/30/16 21:00 12/02/16 21:56 Aripiprazole (Abilify) 20 mg DAILY PO 12/01/16 09:00 12/02/16 09:11 Budesonide/ Formoterol Fumarate (Symbicort 160-4.5 Inh) 2 puff BID INH 12/01/16 09:00 12/02/16 22:14 Diazepam (Valium) 10 mg HS PO 12/01/16 21:00 12/02/16 21:56 Divalproex Sodium (Depakote Er) 750 mg BID PO 11/30/16 22:00 12/02/16 21:55 Famotidine (Pepcid) 20 mg BID PO 11/30/16 22:00 12/02/16 21:56 Fenofibrate (Tricor) 145 mg DAILY PO 12/01/16 09:00 12/02/16 09:11 Fluoxetine HCl (PROzac) 20 mg TID PO 12/01/16 09:00 8/28/17 17:28 Tamsulosin HCl (Flomax) 0.4 mg BID PO 12/01/16 09:00 12/02/16 21:55 Gabapentin (Neurontin) 400 mg DAILY@0800,1600 PO 12/01/16 08:00 12/02/16 16:32 Cefazolin Sodium/ Dextrose 50 ml @ 100 mls/hr Q8H IV 12/02/16 14:00 12/03/16 05:49 (Barbara Guerrero) Physical Exam General General Appearance: No Acute Distress, Comfortable, Obese (Barbara GuerreroP) Eyes Eye Exam: Pupils Equal, Sclera White (Barbara Guerrero) Ears & Nose Ears & Nose Exam: Nasal Mucosa [place] (Barbara Guerrero) Throat Throat Exam: Oral Mucosa [place] & Moist (Barbara Guerrero) Neck Neck Exam: Neck Supple, Trachea Midline (Barbara Guerrero) Pulmonary Resp Exam: Clear Bilaterally, Breath Sounds Equal, No Distress, Diminished Breath Sounds (special attention to left base) Resp Remarks No active cough noted (Barbara Guerrero) Cardiology CV Exam: Regular, Normal Sinus Rhythm, Arrhythmia (patient denies any chest pain or dizziness, noted on vital sign sheet pulse 42?, Will place patient on telemetry) (Barbara Guerrero) Gastrointestinal/Abdomen GI Exam: Soft, Non-Tender, Bowel Sounds Present (Barbara Guerrero) Musculoskeletal MS Remarks Right lower extremity with reddened rash cellulitis, mild improvement noted at the lower aspect of the rash (Barbara Guerrero) Integumentary Skin Exam: Warm, Dry (Barbara Guerrero) Neurologic Neuro Exam: Alert, Awake, Oriented, Speech Clear, Moving All Extremities (Barbara Guerrero) Psychiatric Psych Exam: Appropriate Responses (Barbara Guerrero) VTE Prophylaxis VTE Prophylaxis Meds: Heparin (Barbara Guerrero) PUD Prophylasis PUD Prophylaxis: Zantac (Barbara Guerrero) Assessment/Plan Assessment/Plan (1) Sepsis (2) ARF (acute Renal Failure) (3) Cellulitis (4) Schizophrenia (5) Bipolar 1 disorder (6) Depression (7) Urinary retention 8. Possible bradycardia Assessment and Plan Vital signs reviewed trends are normal today Labs reviewed, we'll recheck new labs for comparison in the a.m. Sepsis, possibly secondary to cellulitis Leukocytosis mild improvement 16.5, rash with mild improvement noted at the lower aspect of the leg -Continue with antibiotics , now on Ancef -f/u blood cultures negative so far, urine within normal range without infection noted , IV fluids, gentle hydration, appreciate ID input Afebrile today Anemia, possible secondary to chronic disease follow CBC Urinary retention, right flank pain, possible pyelonephritis UA within normal range, after discussing with patient he states he has had problems voiding in the past. When asked what his treatment was, he stated catheter Straight catheter 1 yesterday with daily, voided 1 after several hours later without any problems, so far has not voided at night, will work with getting patient up and encouraging urination May need to see urology if he is unable to void again Acute kidney injury, improving with IV hydration, Renal ultrasound, normal -Avoid nephrotoxic agent Bipolar Schizophrenia Depression, medical management affect is flat and appropriate and probably his baseline Heparin for DVT prophylaxis Pepcid for GI prophylaxis Discussed with patient Discussed with nurse Discussed with Dr. Lutz, seen on his behalf (Barbara Guerrero) Assessment/Plan pt is seen & examined d/w PT d/w barbara ID input appreciated cont empiric abx blood c/s remained neg ss for dc planning will f/u (Wally Lutz MD) Barbara Guerrero Dec 03, 2016 07:28 Wally Lutz MD Dec 03, 2016 14:18
[2016-12-03] MEDS: SODIUM CHLORIDE 0.9% FLUSH 10 ML FLUSH IV FLUSH SCH ×2 (08:42→21:00)
[2016-12-03] MEDS: DOCUSATE SODIUM 50 MG/SENNA 8.6 MG TAB PO SCH ×2 (08:43→22:13)
[2016-12-03] MEDS: BUDESONIDE-FORMOTEROL 160/4.5 MCG INHALER INH SCH ×2 (08:54→22:16)
[2016-12-03] MEDS: DIVALPROEX SODIUM E.R. 250 MG TAB PO SCH ×2 (08:54→21:00)
[2016-12-03] MEDS: GABAPENTIN 400 MG CAP PO SCH ×2 (08:55→15:55)
[2016-12-03] MEDS: FAMOTIDINE 20 MG TAB PO SCH ×2 (08:55→22:13)
[2016-12-03] MEDS: FENOFIBRATE 145 MG TAB PO SCH (08:55)
[2016-12-03] MEDS: TAMSULOSIN HCL 0.4 MG CAP PO SCH ×2 (08:55→22:13)
[2016-12-03] MEDS: FLUoxetine HCL 20 MG CAP PO SCH ×3 (08:55→18:07)
[2016-12-03] MEDS: HEPARIN SODIUM - SQ 10,000 UNITS/ML VIAL SQ SCH ×2 (08:56→22:07)
[2016-12-03] MEDS: DIAZEPAM 10 MG TAB PO SCH (22:12)
[2016-12-04 00:53] VITALS: BP 130/91; PULSE 64; RESP 18; TEMP 98; O2SAT 96
[2016-12-04 03:33] VITALS: BP 130/89; PULSE 67; RESP 18; TEMP 98.3; O2SAT 96
[2016-12-04] MEDS: SODIUM CHLOR 0.9% 1000 ML INJ 1,000 ML IV SCH (06:27)
--- NOTE | 2016-12-04 07:25 | HHI.PR ---
Subjective Subjective Remarks resting in the bed with rt. leg elevated on pillow 3+ LE edema continues, reminded patient to keep elevated Initially had 1 episode of urinary retention, but seems to be voiding without difficulty now, continue to monitor Alert, oriented Afebrile Eating and taking by mouth fluids well (Barbara Guerrero) Review of Systems Constitutional Constitutional: Fatigue (mild), Weakness (mild) Constitutional Remarks 10 point ROS done positives noted Afebrile (Barbara Guerrero) GI/Abdomen GI/Abdomen Remarks Obese (Barbara Guerrero) Genitourinary Remarks Patient states voiding okay (Barbara Guerrero) Musculoskeletal MS: Weakness, Stiffness (right lower extremity) (Barbara Guerrero) Integumentary Skin: Rash (cellulitis) Skin Remarks Right lower leg with mild gradual improvement of rash (Barbara Guerrero) Psychiatric Psychiatric: Normal Mood (Barbara Guerrero) Vitals/Results Vital Signs Vital Signs Date Time Temp Pulse Resp B/P (MAP) Pulse Ox O2 Delivery O2 Flow Rate FiO2 12/04/16 03:33 98.3 67 18 130/89 (103) 96 12/04/16 00:53 98.0 64 18 130/91 (104) 96 12/03/16 21:59 98.0 75 18 130/87 (101) 97 12/03/16 16:58 20 12/03/16 16:07 97.6 70 20 129/87 (101) 97 12/03/16 12:17 97.8 68 21 120/63 (82) 96 12/03/16 08:30 70 12/03/16 07:56 97.6 64 20 112/51 (71) 97 (Barbara Guerrero) CBC/BMP: 12/02/16 0515 12/02/16 0515 Imaging Remarks Last Impressions Chest X-Ray 11/30/16 1906 Signed Impressions: Service Date/Time: Wednesday, November 30, 2016 19:43 - CONCLUSION: Left basilar streakiness consistent with atelectasis and/or mild infiltrate. Clinical correlation is recommended. Gopal Cash MD Renal Ultrasound 11/30/16 0000 Signed Impressions: Service Date/Time: Wednesday, November 30, 2016 21:25 - CONCLUSION: No acute disease. Gopal Cash MD Current Medications Administered Medications Medications (Trade) Dose Ordered Sig/Ron Route PRN Reason Start Time Stop Time Status Last Admin Dose Admin Sodium Chloride 1,000 ml @ 100 mls/hr Q10H IV 11/30/16 20:45 12/04/16 06:27 Sodium Chloride (NS Flush) 2 ml BID IV FLUSH 11/30/16 21:00 12/01/16 07:48 Acetaminophen (Tylenol) 650 mg Q4H PRN PO TEMP > 100.4 11/30/16 20:45 12/01/16 21:47 Heparin Sodium (Porcine) (Heparin Inj) 5,000 units Q12H SQ 11/30/16 20:45 12/03/16 22:07 Acetaminophen/ Hydrocodone Bitart (Home 5-325 Mg) 1 tab Q4H PRN PO PAIN SCALE 3 TO 5 11/30/16 20:45 12/03/16 15:58 Senna/Docusate Sodium (Chely-Colace) 1 tab BID PO 11/30/16 21:00 12/03/16 22:13 Aripiprazole (Abilify) 20 mg DAILY PO 12/01/16 09:00 12/03/16 08:55 Budesonide/ Formoterol Fumarate (Symbicort 160-4.5 Inh) 2 puff BID INH 12/01/16 09:00 12/03/16 22:16 Diazepam (Valium) 10 mg HS PO 12/01/16 21:00 12/03/16 22:12 Divalproex Sodium (Depakote Er) 750 mg BID PO 11/30/16 22:00 12/03/16 21:00 Famotidine (Pepcid) 20 mg BID PO 11/30/16 22:00 12/03/16 22:13 Fenofibrate (Tricor) 145 mg DAILY PO 12/01/16 09:00 12/03/16 08:55 Fluoxetine HCl (PROzac) 20 mg TID PO 12/01/16 09:00 12/03/16 18:07 Tamsulosin HCl (Flomax) 0.4 mg BID PO 12/01/16 09:00 12/03/16 22:13 Gabapentin (Neurontin) 400 mg DAILY@0800,1600 PO 12/01/16 08:00 12/03/16 15:55 Cefazolin Sodium/ Dextrose 50 ml @ 100 mls/hr Q8H IV 12/02/16 14:00 12/03/16 23:55 (Barbara Guerrero) Physical Exam General General Appearance: No Acute Distress, Comfortable, Obese (Barbara Guerrero) Eyes Eye Exam: Pupils Equal, Sclera White (Barbara Guerrero) Ears & Nose Ears & Nose Exam: Nasal Mucosa [place] (Barbara Guerrero) Throat Throat Exam: Oral Mucosa [place] & Moist (Barbara Guerrero) Neck Neck Exam: Neck Supple, Trachea Midline (Barbara Guerrero) Pulmonary Resp Exam: Clear Bilaterally, Breath Sounds Equal, No Distress, Diminished Breath Sounds (special attention to left base) Resp Remarks No active cough noted (Barbara Guerrero) Cardiology CV Exam: Regular, Normal Sinus Rhythm, Arrhythmia (patient denies any chest pain or dizziness, noted on vital sign sheet pulse 42?, Will place patient on telemetry) (Barbara Guerrero) Gastrointestinal/Abdomen GI Exam: Soft, Non-Tender, Bowel Sounds Present (Barbara Guerrero) Musculoskeletal MS Remarks Right lower extremity with reddened rash cellulitis, mild improvement noted at the lower aspect of the rash (Barbara Guerrero) Integumentary Skin Exam: Warm, Dry (Barbara Guerrero) Neurologic Neuro Exam: Alert, Awake, Oriented, Speech Clear, Moving All Extremities (Barbara Guerrero) Psychiatric Psych Exam: Appropriate Responses (Barbara Guerrero) VTE Prophylaxis VTE Prophylaxis Meds: Heparin (Barbara Guerrero) PUD Prophylasis PUD Prophylaxis: Zantac (Barbara Guerrero) Assessment/Plan Assessment/Plan (1) Sepsis (2) ARF (acute Renal Failure) (3) Cellulitis (4) Schizophrenia (5) Bipolar 1 disorder (6) Depression (7) Urinary retention 8. Possible bradycardia Assessment and Plan Vital signs reviewed trends are normal today Labs reviewed, leukocytosis, eval any acute changes, labs are pending, blood cultures show no growth Sepsis, possibly secondary to cellulitis Leukocytosis mild improvement 16.5, rash with slow gradual improvement of the rash -Continue with IV antibiotics , now on Ancef -f/u blood cultures negative so far, urine within normal range without infection noted , IV fluids decreased to 50 cc an hour, patient is taking by mouth fluids well, appreciate ID input Afebrile today Anemia, possible secondary to chronic disease follow hemoglobin Urinary retention, asymptomatic with any dysuria, voiding without any problems over the last 24 hours we'll continue to monitor UA within normal range no culture or sensitivity was warranted, after discussing with patient he states he has had problems voiding in the past. When asked what his treatment was, he stated catheter Acute kidney injury, improving with IV hydration, decreased IV fluids to 50 cc an hour, labs are pending, patient is taking by mouth fluids well Renal ultrasound, normal -Avoid nephrotoxic agent Bipolar Schizophrenia Depression, medical management affect is flat and appropriate and probably his baseline Heparin for DVT prophylaxis Pepcid for GI prophylaxis Discussed with patient Discussed with nurse Discussed with Dr. Lutz, seen on his behalf Discharge planning will be based on improvement of cellulitis and transition to by mouth antibiotics and IDs recommendations (Barbara Guerrero) Assessment/Plan pt is seen & examined d/w PT clinically improving , fever resolved/ WBC better/pain better but RLE still has red inflammed large patch w well demarcated margin eryseploid appearnace on IV ancef , will consider changing it to po keflex if ok w ID & possible d/c back to [facility] d/w barbara ya f/u addendum 12 .34 noon d/w DR Mccartney , she agreed w changing to po keflex& d/c back to [facility] d/w URMILA Pacheco d/c to [facility]/see form see [facility] f/u pcp (Wally Lutz MD) Barbara Guerrero Dec 04, 2016 07:25 Wally Lutz MD Dec 04, 2016 11:07
[2016-12-04 07:54] VITALS: BP 124/83; PULSE 81; RESP 20; TEMP 98.4; O2SAT 94
[2016-12-04] MEDS: BUDESONIDE-FORMOTEROL 160/4.5 MCG INHALER INH SCH (08:52)
[2016-12-04] MEDS: DOCUSATE SODIUM 50 MG/SENNA 8.6 MG TAB PO SCH (08:53)
[2016-12-04] MEDS: FAMOTIDINE 20 MG TAB PO SCH (08:53)
[2016-12-04] MEDS: TAMSULOSIN HCL 0.4 MG CAP PO SCH (08:53)
[2016-12-04] MEDS: DIVALPROEX SODIUM E.R. 250 MG TAB PO SCH (08:53)
[2016-12-04] MEDS: HEPARIN SODIUM - SQ 10,000 UNITS/ML VIAL SQ SCH (08:53)
[2016-12-04] MEDS: FLUoxetine HCL 20 MG CAP PO SCH ×2 (08:53→12:47)
[2016-12-04] MEDS: FENOFIBRATE 145 MG TAB PO SCH (08:54)
[2016-12-04] MEDS: GABAPENTIN 400 MG CAP PO SCH (08:56)
[2016-12-04] MEDS: SODIUM CHLORIDE 0.9% FLUSH 10 ML FLUSH IV FLUSH SCH (08:56)
[2016-12-04 09:47] LABS: HEMATOCRIT 31.5 % (39.0-51.0); MEAN CORPUSCULAR HEMOGLOBIN 29.2 PG (27.0-34.0); MEAN CORPUSCULAR HGB CONC 31.7 % (32.0-36.0); PLATELET COUNT 137 TH/MM3 (150-450); RED BLOOD COUNT 3.42 MIL/MM3 (4.50-5.90); RED CELL DISTRIBUTION WIDTH 14.6 % (11.6-17.2); REVIEW FLAG FINAL
[2016-12-04 10:16] LABS: BICARBONATE 32.4 MEQ/L (21.0-32.0)
[2016-12-04 11:47] VITALS: BP 112/62; PULSE 71; RESP 19; TEMP 97.9; O2SAT 94
[2016-12-04] MEDS ORDERED: CEPH-460 PO (12:31)
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
--- NOTE | 2016-12-04 17:56 | HHI.DS ---
Discharge Summary Admission Date Nov 30, 2016 at 20:38 Discharge Date: Dec 04, 2016 Admitting Diagnosis sepsis, cellulitis (1) Sepsis ICD Codes: A41.9 - Sepsis, unspecified organism Status: Acute (2) VERO (acute kidney injury) ICD Codes: N17.9 - Acute kidney failure, unspecified Status: Acute (3) Cellulitis ICD Codes: L03.90 - Cellulitis, unspecified Status: Acute (4) Schizophrenia ICD Codes: F20.9 - Schizophrenia, unspecified Status: Chronic (5) Bipolar 1 disorder ICD Codes: F31.9 - Bipolar disorder, unspecified Status: Chronic (6) Depression ICD Codes: F32.9 - Major depressive disorder, single episode, unspecified Status: Chronic (7) Leukocytosis ICD Codes: D72.829 - Elevated white blood cell count, unspecified Status: Acute (8) Urinary retention ICD Codes: R33.9 - Retention of urine, unspecified Status: Acute Brief History This was a 45-year-old male who comes [facility] an [facility], significant past medical history of depression, schizophrenia, anxiety. Patient presented to the emergency room complaining of right flank pain as well as right leg pain with ambulation. He was found with a temperature 103. Patient indicated he didn't know he had a fever, he started feeling poorly yesterday vomited several times. He also noted diarrhea approximately 5 episodes that was watery, non- today. Denied any cough, no sputum. No voiding difficulty although he does have some retention at this time. Complaints of right flank pain. Patient was not a very good historian, has history of psych disorder and mental retardation. CBC/BMP: 12/04/16 0720 12/04/16 0720 Significant Findings Laboratory Tests Test 12/02/16 05:15 12/02/16 13:05 12/04/16 07:20 White Blood Count 16.5 TH/MM3 (4.0-11.0) Red Blood Count 3.59 MIL/MM3 (4.50-5.90) 3.42 MIL/MM3 (4.50-5.90) Hemoglobin 10.7 GM/DL (13.0-17.0) 10.0 GM/DL (13.0-17.0) Hematocrit 32.8 % (39.0-51.0) 31.5 % (39.0-51.0) Platelet Count 138 TH/MM3 (150-450) 137 TH/MM3 (150-450) Estimat Glomerular Filtration Rate 80 ML/MIN (>89) Urine Occult Blood SMALL (NEG) Urine Mucus FEW /lpf (OCC) Mean Corpuscular Hemoglobin Concent 31.7 % (32.0-36.0) Random Glucose 68 MG/DL (74-106) Carbon Dioxide Level 32.4 MEQ/L (21.0-32.0) Imaging Last Impressions Chest X-Ray 11/30/16 1906 Signed Impressions: Service Date/Time: Wednesday, November 30, 2016 19:43 - CONCLUSION: Left basilar streakiness consistent with atelectasis and/or mild infiltrate. Clinical correlation is recommended. Gopal Cash MD Renal Ultrasound 11/30/16 0000 Signed Impressions: Service Date/Time: Wednesday, November 30, 2016 21:25 - CONCLUSION: No acute disease. Gopal Cash MD PE at Discharge General General Appearance: No Acute Distress, Comfortable, Obese (Skye Guerrero) Eyes Eye Exam: Pupils Equal, Sclera White (Skye GuerreroP) Ears & Nose Ears & Nose Exam: Nasal Mucosa [place] (Skye GuerreroP) Throat Throat Exam: Oral Mucosa [place] & Moist (Skye Guerrero [employer]) Neck Neck Exam: Neck Supple, Trachea Midline (Skye GuerreroP) Pulmonary Resp Exam: Clear Bilaterally, Breath Sounds Equal, No Distress, Diminished Breath Sounds (special attention to left base) Resp Remarks No active cough noted (Skye GuerreroP) Cardiology CV Exam: Regular, Normal Sinus Rhythm, Arrhythmia (patient denies any chest pain or dizziness, noted on vital sign sheet pulse 42?, Will place patient on telemetry) (Skye GuerreroP) Gastrointestinal/Abdomen GI Exam: Soft, Non-Tender, Bowel Sounds Present (Skye Guerrero) Musculoskeletal MS Remarks Right lower extremity with reddened rash cellulitis, mild improvement noted at the lower aspect of the rash (Skye Guerrero) Integumentary Skin Exam: Warm, Dry (Skye Guerrero) Neurologic Neuro Exam: Alert, Awake, Oriented, Speech Clear, Moving All Extremities (Skye Guerrero) Psychiatric Psych Exam: Appropriate Responses (Skye Guerrero) VTE Prophylaxis VTE Prophylaxis Meds: Heparin (Skye Guerrero) PUD Prophylasis PUD Prophylaxis: Zantac (Skye Guerrero) Hospital Course Patient was evaluated in emergency room, he was noted febrile temperature 103 , heart rate 118, blood pressure 105/54, sats 92% on room air. He was noted with significant leukocytosis, WBC 31.7 with bandemia. BMP remarkable for acute kidney injury, BUN 34, creatinine 2.15. Lactic acid 1.9. Patient didn't have any history of kidney disease, this was a new finding. Chest x-ray showed left basilar streakiness consistent with atelectasis and mild infiltrate. He was actually seen at this facility on November 19 when he presented for a rash which had been treated with Diflucan as well as Nizoral cream. Patient did complain of fever at that time and a sore throat and no CBC was done. He was noted with the rash to his legs, upper extremities and trunk. He was put on steroids and instructed to continue Diflucan and discharged. During this evaluation in the emergency room, he was noted with erythematous rash located to the distal right leg around the ankle there is some streaking going up the thigh and the groin area, warm to touch and tender to palpation. Patient was given 2 L of IV fluids and started on empiric antibiotics. At this time, patient was resting comfortably. Patient was admitted for further evaluation and treatment. These are the diagnoses that were used to treat this patient during this hospital stay and plan of care. (1) Sepsis (2) ARF (acute Renal Failure) (3) Cellulitis (4) Schizophrenia (5) Bipolar 1 disorder (6) Depression (7) Urinary retention 8. Possible bradycardia Vital signs trends were monitored every 4 hours and as needed. Patient's been afebrile and stable for the last 48 hours Sepsis, possibly secondary to cellulitis Leukocytosis mild improvement 16.5, rash with mild improvement noted at the lower aspect of the leg -Continue with antibiotics , was on Ancef -f/u blood cultures negative so far, urine within normal range without infection noted , IV fluids, gentle hydration, appreciate ID input Afebrile today, patient was transitioned to by mouth Keflex now that he is more medically stable Anemia, possible secondary to chronic disease follow CBC Urinary retention, right flank pain, possible pyelonephritis UA within normal range, after discussing with patient he states he has had problems voiding in the past. When asked what his treatment was, he stated catheter Straight catheter 1 yesterday with daily, voided 1 after several hours later without any problems, so far has not voided at night, will work with getting patient up and encouraging urination Patient was able to void requiring no further catheterization. By mouth fluids encouraged Acute kidney injury, improving with IV hydration, Renal ultrasound, normal -Avoid nephrotoxic agent Bipolar Schizophrenia Depression, medical management affect is flat and appropriate and probably his baseline Heparin for DVT prophylaxis Pepcid for GI prophylaxis Consultation included infectious disease for antibiotic recommendations, blood cultures remain negative Patient was seen today and was improving and was able to return back to the [facility] Pt Condition on Discharge: Stable Discharge Disposition: [facility] Discharge Instructions DIET: Follow Instructions for: Heart Healthy Diet Fluid Restrictions: none Activities you can perform: Weight Bearing as Tiffany Other Activity Instructions: elevate RLEx when resting Follow up Referrals: PCP Follow-up - 1 Week New Medications: Cephalexin (Keflex) 500 Mg Cap 500 MG PO Q6H for Infection for 10 Days, #40 CAP 0 Refills Continued Medications: Aripiprazole (Abilify) 20 Mg Tab 20 MG PO DAILY for Mental Health for 15 Days, TAB 1 Refill Budesonide-Formoterol Inh (Symbicort Inh) 160-4.5 Mcg/Act Aero 2 PUFF INH BID for health, #1 BOTTLE 0 Refills Diazepam (Valium) 10 Mg Tab 10 MG PO HS for Mental Health for 15 Days, TAB 1 Refill Diphenhydramine (Diphenhydramine) 25 Mg Cap 25 MG PO Q6H PRN for ALLERGIES for 7 Days, CAP 0 Refills Divalproex ER (Depakote ER) 250 Mg Mele[place]io 750 MG PO 3 bid for health, #180 TAB 0 Refills Famotidine (Pepcid) 20 Mg Tab 20 MG PO BID, #30 TAB 0 Refills Fenofibrate (Fenofibrate) 145 Mg Tab 145 MG PO DAILY for health, #30 TAB 0 Refills Fluoxetine (Fluoxetine) 20 Mg Capsule 20 MG PO TID for health, #90 CAP 0 Refills Gabapentin (Gabapentin) 800 Mg Tab 800 MG PO BID (0800,1600), #60 TAB 0 Refills Polyethylene Glycol 3350 Powder (Polyethylene Glycol 3350 Powder) 17 Gm Pow 17 GM PO DAILY for health, #1 BOX 0 Refills Tamsulosin (Flomax) 0.4 Mg Cap 0.4 MG PO BID for health, #60 CAP 0 Refills [Lactulose Liq] () 30 ML SYRP 30 ML PO DAILY for Constipation for 15 Days, ML 1 Refill Discontinued Medications: Fluconazole (Fluconazole) 100 Mg Tab 100 MG PO DAILY for Infection, TAB 0 Refills Prednisone (Prednisone) 20 Mg Tab 20 MG PO BID, #14 TAB Skye Guerrero Dec 04, 2016 17:56
== END 2016-12-04 17:11 | DRG 872 ==
LOC: NEPD 18:42 → NEDA 20:38 → NEPFCDU 22:25
PROVIDERS: ADMIT Specialist; ATTEND Specialist
DX: A41.9 Sepsis, unspecified organism (principal); N17.9 Acute kidney failure, unspecified; L03.115 Cellulitis of right lower limb; N12 Tubulo-interstitial nephritis, not specified as acute or chronic; J98.11 Atelectasis; F20.9 Schizophrenia, unspecified; I10 Essential (primary) hypertension; E86.0 Dehydration; R00.0 Tachycardia, unspecified; F31.9 Bipolar disorder, unspecified; F41.9 Anxiety disorder, unspecified; E78.00 Pure hypercholesterolemia, unspecified; J44.9 Chronic obstructive pulmonary disease, unspecified; E78.5 Hyperlipidemia, unspecified; Z86.73 Personal history of transient ischemic attack (TIA), and cerebral infarction without residual deficits; G47.00 Insomnia, unspecified; G40.909 Epilepsy, unspecified, not intractable, without status epilepticus; R21 Rash and other nonspecific skin eruption; L53.9 Erythematous condition, unspecified; R33.9 Retention of urine, unspecified
CPT/HCPCS: 71010; 76775; 76937; 80048; 80053; 80164; 81001; 83605; 85007; 85025; 85027; 87040; 96361; 96365; J0690; J1644; J2543; J3370; J7030; J7050

== ENCOUNTER 2016-12-10 16:02 | Emergency (ER) | payer MEDICARE, OTHER ==
[~2016-12-10] VITALS: Ht 162.6 cm; Wt 115.0 kg
[~2016-12-10 16:02] MED LIST changes: +CEPH-460 PO; -FLUC100T2 PO; -PRED20 PO
[2016-12-10 16:04] VITALS: BP 142/67; PULSE 84; RESP 15; TEMP 98.4; O2SAT 98
== END 2016-12-10 17:35 | disposition left against medical advice (07) ==
LOC: NEPE 16:02
DX: M79.89 Other specified soft tissue disorders (principal); Z53.21 Procedure and treatment not carried out due to patient leaving prior to being seen by health care provider
CPT/HCPCS: 99281

== ENCOUNTER 2016-12-29 08:33 | Emergency (ER) | payer MEDICARE, OTHER ==
[~2016-12-29] VITALS: Ht 162.6 cm; Wt 115.0 kg
[2016-12-29 08:35] VITALS: BP 142/80; PULSE 92; RESP 24; TEMP 98; O2SAT 97
[2016-12-29 09:15] VITALS: O2SAT 96
--- NOTE | 2016-12-29 09:24 | PD ---
HPI Chief Complaint: Edema Time Seen by Provider: 09:23 Travel History International Travel<30 days: No Contact w/Intl Traveler<30days: No Traveled to known affect area: No History of Present Illness HPI 46-year-old male came to the emergency room because of right leg infection. Patient has had an infection in that leg for almost a month. In fact he was admitted in the hospital for that. Received IV antibiotics and discharged. Patient says that this time for past couple days it has started to bother him again. The leg has swollen as well. No history of fever or chills. It does hurt. Vital signs were otherwise stable. [facility] Past Medical History Narrative Medical List of his past medical, surgical, social and family history is reviewed from the nursing note. Arthritis: No Asthma: Yes Blood Disorders: No Bipolar Disorder: Yes Anxiety: Yes Depression: Yes (bipolar) Heart Rhythm Problems: No Cancer: No Cardiovascular Problems: Yes High Cholesterol: Yes Chemotherapy: No Chest Pain: Yes Congestive Heart Failure: No COPD: Yes Cerebrovascular Accident: Yes (TIA) Developmental Delay: Yes Diabetes: No Diminished Hearing: No Endocrine: No Gastrointestinal Disorders: No Genitourinary: Yes (RETENTION) Headaches: No Hypertension: Yes Immune Disorder: No Implanted Vascular Access Dvce: Yes Insomnia: Yes Kidney Stones: No Musculoskeletal: Yes Neurologic: Yes Psychiatric: Yes (anxiety, depression, schizophrenia) Reproductive: No Respiratory: Yes (ASTHMA) Integumentary: Yes (DERMATITIS, PRURITIS) Migraines: Yes Radiation Therapy: No Renal Failure: No Schizophrenia: Yes Seizures: Yes Sleep Apnea: No Past Surgical History Abdominal Surgery: No AICD: No Arteriovenous Shunt: No Body Medical Devices: BACK RODS AND SCREWS Cardiac Surgery: No Ear Surgery: No Endocrine Surgery: No Eye Surgery: No Genitourinary Surgery: No Gynecologic Surgery: No Insulin Pump: No Joint Replacement: No Oral Surgery: No Pacemaker: No Thoracic Surgery: No Other Surgery: Yes Social History Alcohol Use: No Tobacco Use: No Substance Use: No Allergies-Medications (Allergen,Severity, Reaction): Coded Allergies: melon (Verified Allergy, Unknown, 12/29/16) Per MAR sent by facility. tomato (Verified Allergy, Unknown, 12/29/16) Per MAR sent by facility. watermelon (Verified Allergy, Unknown, 12/29/16) Per MAR sent by facility. Comments List of his allergies reviewed from the nursing note. Reported Meds & Prescriptions Reported Meds & Active Scripts Active Bactrim DS (Sulfamethoxazole-Trimethoprim) 800-160 Mg Tab 1 Tab PO BID Flomax (Tamsulosin HCl) 0.4 Mg Cap 0.4 Mg PO BID Polyethylene Glycol 3350 Powder (Polyethylene Glycol) 17 Gm Pow 17 Gm PO DAILY Fluoxetine (Fluoxetine HCl) 20 Mg Capsule 20 Mg PO TID Fenofibrate 145 Mg Tab 145 Mg PO DAILY Depakote ER (Divalproex Sodium) 250 Mg Melecio 750 Mg PO 3 BID Symbicort Inh (Budesonide/Formoterol Fumarate) 160-4.5 Mcg/Act Aero 2 Puff INH BID Abilify (Aripiprazole) 20 Mg Tab 20 Mg PO DAILY 15 Days Gabapentin 800 Mg Tab 800 Mg PO BID (0800,1600) Narrative Medication List of his home medications reviewed from the nursing note. Review of Systems Except as stated in HPI: all other systems reviewed are Neg Physical Exam Narrative GENERAL: Awake, alert, obese, moderate distress SKIN: Focused skin assessment warm/dry. Right leg scaly rash that is, erythematous, partially healing, superior edge wet and oozing. It is non- circumferential but extensive. Measures 15 x 21 cm. Right leg is swollen than the left. Slightly warm to touch HEAD: Atraumatic. Normocephalic. EYES: Pupils equal and round. No scleral icterus. No injection or drainage. ENT: No nasal bleeding or discharge. Mucous membranes pink and moist. NECK: Trachea midline. No JVD. CARDIOVASCULAR: Regular rate and rhythm. No murmur appreciated. RESPIRATORY: No accessory muscle use. Clear to auscultation. Breath sounds equal bilaterally. GASTROINTESTINAL: Abdomen soft, non-tender, nondistended. Hepatic and splenic margins not palpable. MUSCULOSKELETAL: No obvious deformities. No clubbing. No cyanosis. No edema. NEUROLOGICAL: Awake and alert. No obvious cranial nerve deficits. Motor grossly within normal limits. Normal speech. PSYCHIATRIC: Appropriate mood and affect; insight and judgment normal. Data Data Last Documented VS Orders Orders Complete Blood Count With Diff (12/29/16 09:32) Comprehensive Metabolic Panel (12/29/16 09:32) Lactic Acid Sepsis Protocol (12/29/16 09:32) Blood Culture (12/29/16 09:32) Blood Glucose (12/29/16 09:32) Ecg Monitoring (12/29/16 09:32) Iv Access Insert/Monitor (12/29/16 09:32) Oximetry (12/29/16 09:32) Oxygen Administration (12/29/16 09:32) Vancomycin Inj (Vancomycin Inj) (12/29/16 09:45) Us Leg Venous Doppler (12/29/16 ) Labs Laboratory Tests Test 12/29/16 09:15 White Blood Count 5.1 TH/MM3 Red Blood Count 4.01 MIL/MM3 Hemoglobin 12.0 GM/DL Hematocrit 35.9 % Mean Corpuscular Volume 89.4 FL Mean Corpuscular Hemoglobin 29.9 PG Mean Corpuscular Hemoglobin Concent 33.4 % Red Cell Distribution Width 13.7 % Platelet Count 211 TH/MM3 Mean Platelet Volume 8.3 FL Neutrophils (%) (Auto) 57.4 % Lymphocytes (%) (Auto) 29.7 % Monocytes (%) (Auto) 10.6 % Eosinophils (%) (Auto) 1.9 % Basophils (%) (Auto) 0.4 % Neutrophils # (Auto) 2.9 TH/MM3 Lymphocytes # (Auto) 1.5 TH/MM3 Monocytes # (Auto) 0.5 TH/MM3 Eosinophils # (Auto) 0.1 TH/MM3 Basophils # (Auto) 0.0 TH/MM3 CBC Comment DIFF FINAL Differential Comment Blood Urea Nitrogen 16 MG/DL Creatinine 0.95 MG/DL Random Glucose 117 MG/DL Total Protein 8.3 GM/DL Albumin 3.2 GM/DL Calcium Level 8.8 MG/DL Alkaline Phosphatase 44 U/L Aspartate Amino Transf (AST/SGOT) 48 U/L Alanine Aminotransferase (ALT/SGPT) 31 U/L Total Bilirubin 0.2 MG/DL Sodium Level 138 MEQ/L Potassium Level 3.6 MEQ/L Chloride Level 104 MEQ/L Carbon Dioxide Level 26.1 MEQ/L Anion Gap 8 MEQ/L Estimat Glomerular Filtration Rate 86 ML/MIN Lactic Acid Level 1.9 mmol/L [facility] Medical Decision Making Medical Screen Exam Complete: Yes Emergency Medical Condition: Yes Medical Record Reviewed: Yes Differential Diagnosis Cellulitis, DVT Narrative Course 11:17 AM blood test results of back and within acceptable limits. Ultrasound was negative for DVT. Patient had initially received a gram of vancomycin. I am currently comfortable discharging him home on by mouth antibiotic. Patient is comfortable with that plan as well. Procedures EKG Prior to Arrival: No Diagnosis Primary Impression: Cellulitis Qualified Codes: L03.115 - Cellulitis of right lower limb Additional Impression: Delayed wound healing Referrals: Primary Care Physician Additional Instructions: Please return to the ER if the condition worsens or any other new concerns. Otherwise follow-up with your primary care in next couple days. Keep the leg elevated at rest on a position higher than your heart. Take the medication as per the prescription direction. Med/Other Pt SpecificInfo: Prescription(s) given Scripts Sulfamethoxazole-Trimethoprim (Bactrim DS) 800-160 Mg Tab 1 TAB PO BID for Infection, #20 TAB 0 Refills Prov: Bandar Easley MD 12/29/16 Disposition: 01 DISCHARGE HOME Condition: Stable Bandar Easley MD Dec 29, 2016 09:24
[2016-12-29] MEDS ORDERED: VANCOMYCIN INJ 1,000 MG in SODIUM CHLOR 0.9% 250 ML INJ 250 ML IV ONE (09:45)
[2016-12-29 10:02] LABS: AUTOMATED NEUTROPHIL # 2.9 TH/MM3 (1.8-7.7); BASOPHIL % 0.4 % (0.0-2.0); EOSINOPHIL # 0.1 TH/MM3 (0-0.4); EOSINOPHIL % 1.9 % (0.0-4.0); HEMATOCRIT 35.9 % (39.0-51.0); HEMO FLAGS DIFF FINAL; LYMPH % 29.7 % (9.0-44.0); LYMPHOCYTE # 1.5 TH/MM3 (1.0-4.8); MEAN CELL VOLUME 89.4 FL (80.0-100.0); MEAN CORPUSCULAR HEMOGLOBIN 29.9 PG (27.0-34.0); MEAN CORPUSCULAR HGB CONC 33.4 % (32.0-36.0); MONO % 10.6 % (0.0-8.0); NEUT % 57.4 % (16.0-70.0); PLATELET COUNT 211 TH/MM3 (150-450); RED BLOOD COUNT 4.01 MIL/MM3 (4.50-5.90); RED CELL DISTRIBUTION WIDTH 13.7 % (11.6-17.2); WHITE BLOOD COUNT 5.1 TH/MM3 (4.0-11.0)
[2016-12-29 10:26] LABS: ANION GAP 8 MEQ/L (5-15); AST (GOT) 48 U/L (15-37); BICARBONATE 26.1 MEQ/L (21.0-32.0); BLOOD UREA NITROGEN 16 MG/DL (7-18); CHLORIDE 104 MEQ/L (98-107); GLOMERULAR FILTRATION RATE 86 ML/MIN (>89); POTASSIUM 3.6 MEQ/L (3.5-5.1); SODIUM (NA) 138 MEQ/L (136-145)
[2016-12-29 10:27] LABS: ALT (GPT) 31 U/L (12-78)
[2016-12-29 10:29] LABS: ALKALINE PHOSPHATASE 44 U/L (45-117); TOTAL BILIRUBIN ADULT 0.2 MG/DL (0.2-1.0)
--- NOTE | 2016-12-29 10:56 | RADRPT ---
EXAM DATE/TIME: 12/29/2016 09:52 [place] COMPARISON: No previous studies available for comparison. INDICATIONS : Right leg swelling. MEDICAL HISTORY : Stroke. Hypercholesterolemia. Hypertension. Glasses. Seizures. Migraine. Chest pain. COPD. Asthma. Dy spnea. Anxiety. Depression. Schizophrenia. Bipolar disorder. Dermatitis. Pruritis. SURGICAL HISTORY : Lower back surgery. Bilateral shoulder surgery. ENCOUNTER: Initial ACUITY: 1 day PAIN SCORE: 5/10 LOCATION: Right leg. TECHNIQUE: Venous ultrasound of the leg was performed from the inguinal ligament to the proximal calf. Real-rasheed e, color Doppler and spectral tracing, compression and augmentation techniques were used. FINDINGS: There is normal compressibility of the deep venous system from the inguinal region to the proximal ca lf. No echogenic clot is seen in the lumen of the common femoral, femoral, popliteal, and posterior tibial veins. There is a normal response of the venous system to proximal and distal augmentation an d respiration. CONCLUSION: No DVT is identified in the right lower extremity. Valdez Magdaleno MD on December 29, 2016 at 10:54 Board Certified Radiologist. This report was verified electronically.
[2016-12-29] MEDS ORDERED: BACT800T5 PO (11:06)
== END 2016-12-29 12:44 | disposition home or self-care (01) ==
LOC: NEPE 08:33
DX: L03.115 Cellulitis of right lower limb (principal)
CPT/HCPCS: 80053; 83605; 85025; 87040; 93971; 96365; 99285; J3370; J7050